=== PATIENT | female | born 1990 | race Caucasian/White ===

== ENCOUNTER 2021-11-25 20:34 | Emergency (ER) | payer MEDICAID, SELFPAY ==
--- NOTE | ~2021-11-25 | XR_ITS ---
EXAMINATION: XR FOOT, RIGHT CLINICAL INFORMATION: Pain. Patient reports injury 6 months prior. COMPARISON: None TECHNIQUE: AP, lateral, and oblique views of the right foot. FINDINGS: There is an incomplete fracture through the proximal diametaphysis of the fifth metatarsal. Fracture extension of the lateral cortex does not appear to extend to the medial cortex. The fracture is nondisplaced. No definite callus. The remaining bones joints and soft tissues unremarkable. XR/XR foot RT min 3V IMPRESSION: Incomplete fracture proximal fifth metatarsal age indeterminant
[2021-11-25 21:05] VITALS: BP 130/93; PULSE 100; RESP 18; TEMP 36.6; O2SAT 97; BMI 36.0
--- NOTE | 2021-11-25 22:27 | PC.NURSE ---
Pt called, not found in [facility] @ this time.
--- NOTE | 2021-11-25 23:34 | ED_ITS ---
HPI - Extremity Problem General Chief complaint: Extremity Problem Stated complaint: right foot injury; fracture Time Seen by Provider: 11/25/21 23:32 Source: patient Mode of arrival: ambulatory Limitations: no limitations History of Present Illness HPI Narrative: This is a 31-year-old female presenting to the emergency department with complaints of right-sided foot pain/ankle pain. Patient tells me that in June she fell down some stairs and rolled her ankle since then she has been having ankle pain, she tells me she was having pain around the ankle and around the 5th toe. She tells me she never got evaluated for this. She tells me that earlier today she slipped in the bathtub, rolling her ankle again experiencing pain in similar spot. Immediately after rolling her ankle she started experiencing pain to the lateral aspect of the right foot, she tells me it is extremely uncomfortable, worse with weight-bearing and better at rest. Patient tells me she is ambulating with a limp. In tells me she is having intermittent tingling around the 4th and 5th toes. She tells me when she slipped she did not hit her head or lose consciousness. Patient not on blood thinners and denying any other complaints at this time. MD Complaint: extremity pain Onset (ago): day(s) (1) Pain Consistency: constant Location: right Quality: aching and constant Radiation: none Relieving factors: immobilization Exacerbating factors: range of motion and weight bearing Associated symptoms: denies other symptoms Related Data Allergies Allergy/AdvReac Type Severity Reaction Status Date / Time No Known Allergies Allergy Unverified 01/06/20 16:20 Review of Systems Review of Systems: Constitutional : No Weight loss, No Fever, No Chills, No Fatigue, No Malaise ENT/Mouth : No sore throat, No Rhinorrhea Eyes: No Eye Pain, No Swelling, No Redness Cardiovascular : No Chest Pain, No SOB, No Dyspnea on Exertion, No Orthopnea, No Edema, No Palpitations Respiratory : No Cough, No Sputum, No Wheezing Gastrointestinal : No Nausea, No Vomiting, No Diarrhea, No Constipation, No abdominal Pain, No Hematochezia, No Melena Genitourinary : No Dysuria, No Urinary Frequency, No Hematuria, Musculoskeletal : + joint pain, No Myalgias, + Joint Swelling Skin : No Skin Lesions, No rash Neuro : No Weakness, No Numbness, No Dizziness, No Headache Psych : No Anxiety/Panic, No Depression All other systems reviewed and are negative Yes all other systems are reviewed and are negative [facility] Past Medical History Attestation statement: The following information was validated with the patient. Source: old records reviewed and nursing notes reviewed Social History Social History Advance Directives: No Advance Directives Information Provided: No Physical Exam Vital Signs: Vital Signs: Last Vital Signs Temp 97.9 F 11/25/21 21:05 Pulse 100 11/25/21 21:05 Resp 18 11/25/21 21:05 BP 130/93 H 11/25/21 21:05 Pulse Ox 97 11/25/21 21:05 O2 Del Method 11/25/21 21:05 BMI result Body Mass Index 36.0 Vital signs stable Appearance: Alert.? Oriented X3.? No acute distress.? Head: Normocephalic, atraumatic, no step-offs or deformities Eyes: Pupils equal, round and reactive to light.? Neck: Normal inspection.? Neck supple.? CVS: Normal heart rate and rhythm.? Pulses normal.? Respiratory: No respiratory distress.? Breath sounds normal.? Abdomen: Soft and nontender.? Skin: Skin warm and dry.? Normal skin color.? Normal skin turgor.? Extremities: No lower extremity edema.? No calf ttp. 5/5 strength to bilateral upper and lower extremities. + pain with palpation over right 5th metatarsal. 2+ dorsalis pedis, posterior tibialis and anterior tibialis pulses equal bilateral. No footdrop bilaterally. No overlying skin changes unable to appreciate erythema or edema. Patient ambulating with a limp however able to ambulate. Back: No midline tenderness, no C-spine tenderness, full range of motion, no CVA tenderness bilaterally Neuro: Oriented X 3.? No motor deficit.? No sensory deficit. CN 2-12 intact Course Reevaluation(s) Reevaluation #1: X-ray of the right foot with an incomplete fracture through the proximal 5th metatarsal. Plan at this time is to place patient in a postop shoe and give her crutches. Advised to follow up with PCP in follow-up with orthopedics as necessary. This time I feel comfortable with discharge home. Educated on worrisome signs and symptoms and when to return. Also educated on ibuprofen and Tylenol use. Comfortable with discharge Time: 00:06 MDM - Extremity (Nontraumatic) MDM Narrative Medical decision making narrative: [id number] 31-year-old female presents with right-sided lateral foot pain status post rolling her ankle in a shower today and slipping and falling. Physical examination significant for no lower extremity edema.? No calf ttp. 5/5 strength to bilateral upper and lower extremities. + pain with palpation over right 5th metatarsal. 2+ dorsalis pedis, posterior tibialis and anterior tibialis pulses equal bilateral. No footdrop bilaterally. No overlying skin changes unable to appreciate erythema or edema. Patient ambulating with a limp however able to ambulate. Plan at this time is to obtain imaging. Medical Records Attestation: I reviewed the patient's medical records. Lab Data Attestation: I reviewed the patient's lab results. Critical Care Time Critical Care Time Critical Care Time: No Discharge Plan Discharge Clinical Impression: Fracture of fifth metatarsal bone, Ankle pain Patient Disposition: Home, Self-Care Instructions: Crutch Instructions (ED), Foot Fracture in Adults (ED) Additional Instructions: Take your medications as prescribed. If you were prescribed antibiotics today, it is important that you take your medication to their entirety, do not skip any doses, do not finish them early. Follow-up with your primary care provider this week. Follow-up with orthopedics in 2 weeks if pain does not improve Return to the emergency department with new or worsening symptoms. Such as fevers, chills, chest pain, shortness of breath, nausea, vomiting, dizziness, headache, vision changes, lethargy In case of emergency call 911 You can take ibuprofen every 6 hours, Tylenol every 4 hours as needed for pain or discomfort FINDINGS: There is an incomplete fracture through the proximal diametaphysis of the fifth metatarsal. Fracture extension of the lateral cortex does not appear to extend to the medial cortex. The fracture is nondisplaced. No definite callus. The remaining bones joints and soft tissues unremarkable. XR/XR foot RT min 3V IMPRESSION: Incomplete fracture proximal fifth metatarsal age indeterminant Referrals: Physician,Nonstaff [Primary Care Provider] - 2 days [facility] [place]Provider Group] - 2 weeks Stand Alone Forms: Work/School Release
[2021-11-26] MEDS: Ketorolac Tromethamine 15 MG/ML VIAL 30 MG IM (00:20)
== END 2021-11-26 00:25 | disposition home or self-care (01) ==
PROVIDERS: Emergency Provider Student in an Organized Health Care Education/Training Program
DX: S92.354A Nondisplaced fracture of fifth metatarsal bone, right foot, initial encounter for closed fracture (principal); X50.1XXA Overexertion from prolonged static or awkward postures, initial encounter; Y93.E1 Activity, personal bathing and showering; Y92.002 Bathroom of unspecified non-institutional (private) residence as the place of occurrence of the external cause; Y99.9 Unspecified external cause status
CPT/HCPCS: 73630; 96372; 99283; 99284; J1885

== ENCOUNTER → 2023-03-31 09:00 | Outpatient (BNV) | payer MEDICAID, SELFPAY | PROVIDERS: PCP Internal Medicine; Visit Provider Internal Medicine Cardiovascular Disease | DX: R00.0 Tachycardia, unspecified (principal) | CPT/HCPCS: 93227 ==

== ENCOUNTER → 2023-03-31 13:26 | Outpatient (REF) | payer MEDICAID, SELFPAY ==
--- NOTE | 2023-03-31 | HM_ITS ---
Conclusion: 1. Patient was monitored for total period of 2 days 2. Baseline was normal sinus rhythm with average heart of 90 beats per minute 3. Frequent sinus tachycardia noted with total burden of 37%, heart rate greater than 100 beats per minute 4. No significant pauses noted 5. Patient did not report any events during the monitoring time MTDD
== END ==
LOC: HO.CARD 13:26
PROVIDERS: PCP Internal Medicine; Visit Provider Internal Medicine
DX: R00.2 Palpitations (principal)
CPT/HCPCS: 93005; 93225

== ENCOUNTER 2023-05-12 16:00 | Outpatient (REF) | payer MEDICAID, SELFPAY ==
[2023-05-12 17:54] LABS: MANUAL DIFF FLAG NO
[2023-05-12 18:12] LABS: Basophils Absolute Auto 0.1 X10*3/uL (0.0-0.2); Basophils Percent Auto 0.6 % (0-2); Eosinophils Absolute Auto 0.2 X10*3/uL (0.0-0.4); Eosinophils Percent Auto 2.5 % (0-4); Hematocrit 41.3 % (37.0-47.0); Hemoglobin 13.5 g/dl (12.0-16.0); Imm Gran Abs Auto 0.03 X10*3/uL (0.00-0.03); Imm Gran Pct Auto 0.4 % (0.0-0.4); Lymphocytes Absolute Auto 2.6 X10*3/uL (1.2-4.9); Lymphocytes Percent Auto 32.3 % (20-40); Mean Corpuscular HGB Conc 32.7 g/dl (31.0-35.0); Mean Corpuscular Hemoglobin 30.6 pg (27.0-33.0); Mean Corpuscular Volume 93.7 fL (80.0-98.0); Monocytes Absolute Auto 0.4 X10*3/uL (0.1-1.2); Monocytes Percent Auto 5.4 % (2-11); Neutrophils Absolute Auto 4.7 x10*3/uL (2.0-8.3); Neutrophils Percent Auto 58.8 % (45-73); Platelet Count 291 X10*3/uL (160-400); Red Blood Count 4.41 X10*6/uL (4.20-5.50); Red Cell Distribution Width 13.6 % (11.0-16.0); White Blood Count 7.9 X10*3/uL (4.8-10.8)
[2023-05-12 18:57] LABS: Alanine Aminotransferase 30 U/L (0-31); Albumin Level 4.2 g/dL (3.5-5.0); Alkaline Phosphatase 61 U/L (39-117); Anion Gap 11 (12-20); Aspartate Amino Transferase 27 U/L (5-31); Bilirubin Direct 0.1 mg/dL (0.0-0.5); Bilirubin Total 0.3 mg/dL (0.0-1.0); Blood Urea Nitrogen 14 mg/dL (9-16); Calcium 8.7 mg/dL (8.4-10.2); Carbon Dioxide 23 mmol/L (22-29); Chloride 106 mmol/L (96-108); Estimated Glomerular Filt Rate > 60; Glucose Random 86 mg/dL (60-115); Potassium 4.1 mmol/L (3.3-5.1); Sodium 136 mmol/L (135-145); Total Protein 6.8 g/dL (6.5-8.0)
[2023-05-12 19:13] LABS: TSH reflex Free T4 1.05 uIU/mL (0.32-4.0)
== END 2023-05-12 16:01 | disposition home or self-care (01) ==
LOC: HO.CHCLDS 16:00
PROVIDERS: Referring Provider Family Medicine; Visit Provider Internal Medicine
DX: F11.20 Opioid dependence, uncomplicated (principal); R00.2 Palpitations
CPT/HCPCS: 36415; 80048; 80076; 84443; 85025

== ENCOUNTER 2023-08-08 14:24 | Outpatient (REF) | payer MEDICAID, SELFPAY ==
--- NOTE | ~2023-08-08 | XR_ITS ---
EXAMINATION: XR FOOT, RIGHT CLINICAL INFORMATION: Right-sided pain COMPARISON: None available. TECHNIQUE: AP, lateral, and oblique views of the right foot. FINDINGS: There is lateral soft tissue swelling as well as slight angulation and cortical irregularity to the proximal aspect of the fifth metatarsal suspicious for fracture. Chronicity uncertain therefore please correlate with clinical history. Joint spaces preserved. XR/XR foot RT min 3V IMPRESSION: Query fracture fifth metatarsal of uncertain age.
--- NOTE | ~2023-08-08 | XR_ITS ---
EXAMINATION: XR ANKLE, RIGHT CLINICAL INFORMATION: Right-sided pain COMPARISON: None available. TECHNIQUE: AP, lateral, and mortise views of the right ankle. FINDINGS: Mortise intact. No fracture, dislocation or destructive process. There does appear to be a subtle fracture involving the proximal aspect of the fifth metatarsal. XR/XR ankle RT min 3V IMPRESSION: Ankle mortise intact. Please see above comments.
== END 2023-08-08 14:25 | disposition home or self-care (01) ==
LOC: HO.HHCX 14:24
PROVIDERS: Visit Provider Internal Medicine
DX: M79.671 Pain in right foot (principal); M25.571 Pain in right ankle and joints of right foot
CPT/HCPCS: 73610; 73630

== ENCOUNTER 2025-02-17 14:19 | Outpatient (REF) | payer MEDICAID, SELFPAY ==
--- OUTSIDE RECORDS SUMMARY | 2025-02-17 13:15 | XMS_ITS | Encounter Summary ---
Author Organization [employer] Address [address] [place] [address] [address] [place] [address] Care Team Providers Care Corrosion Control Engineer Name Role Phone Fany Brown MD Primary Care Provider [phone] Kirby Lyle Unavailable Unavailable Reason for Referral * Consultation (Routine) - Pending Review Specialty Diagnoses / Procedures Referred By Christian pretty Referred To Contact Behavioral Health Diagnoses Acute recurrent frontal sinusitis Procedures Referral to Behavioral Health Fany Brown MD [address] [place] [address] Phone: tel: fax: Referral ID Status Reason Start Date Expiration Date Visits Requested Visits Authorized [id number] Pending Review Specialty Services Required 5 08/18/2026 1 1 * Consultation (Routine) - Pending Review Specialty Diagnoses / Procedures Referred By Christian pretty Referred To Contact Orthopaedic Surgery Diagnoses Acute right ankle pain Pain involving joint of finger of left hand Fany Brown MD [address] [place] [address] Phone: tel: fax: Referral ID Status Reason Start Date Expiration Date Visits Requested Visits Authorized [id number] Pending Review Specialty Services Required 02/17/2026 1 1 Reason for Visit * Reason Comments Annual Exam Encounter Details Date Type Department Care Team (Late st Contact Info) Description 02/17/2025 1:15 PM EDT Office Visit [facility] [address] [place] [address] Fany Brown MD [address] [place] [address] Acute right ankle pain (Primary Dx); Annual physical exam; Pain involving joint of finger of left hand; Easy bruising; Routine screening for STI (sexually transmitted infection); Acute recurrent frontal sinusitis; Frequency of micturition; Stress incontinence; Generalized anxiety disorder; Encounter for immunization Social History Tobacco Use Types Packs/Day Years Used Date Smoking Tobacco: Every Day Cigarettes 0.5 23 Passive Smoke Exposure: Current Smokeless Tobacco: Never Comments:Referred to a [employer] cessation program. Depression Answer Date Recorded Patient Health Questionnaire-9 Score 17 02/17/2025 Patient Health Questionnaire-9 Score 17 02/17/2025 Last PHQ-9: Questionnaire Data Not on file 1 Housing Stability Answer Date Recorded What is your housing situation today? I have ella malhotra 02/09/[address] you li ve. Do you have problems with any of the following? Pests such as bugs, ants, or mice 02/09/2025 Food Insecurity Answer Date Recorded Within the past 12 months, y ou worried that your food would run out before you got money to buy more: Never True 02/09/2025 Within the past 12 months,th e food you bought just didn't last and you didn't have enough money to get more: Never True Transportation Answer Date Recorded In the past 12 months, has l ack of transportation kept you from medical appts, meetings, work or from getting things needed for daily living? No 02/09/2025 Utilities Answer Date Recorded In the past 12 months, has t he electric, gas, oil or water company threatened to shut off services in your home? No 02/09/2025 Depression Answer Date Recorded Patient Health Questionnaire-2 Score 2 02/17/2025 Internet Access Answer Date Recorded Internet Access Q1 Yes 02/09/2025 Internet Access Q2 Not on file 02/09/2025 Comments Unknown Sex and Gender Information Value Date Recorded Sex Assigned at Female 02/18/2022 10:24 AM EDT Legal Sex Female 10:24 AM EDT Gender Identity Female 02/18/2022 10:24 AM EDT Sexual Orientation Straight 01/30/2025 7: 57 PM EDT documented as of this encounter Last Filed Vital Signs Vital Sign Reading Time Taken Comments Blood Pressure 133/82 02/17/2025 1:41 PM EDT Pulse 74 02/17/2025 1:41 PM EDT Temperature 37.1 C (98.8 F) 02/17/2025 1:41 PM EDT Respiratory Rate 20 02/17/2025 1:41 PM EDT Oxygen Saturation - - Inhaled Oxygen Concentration - - Weight 78.9 kg (174 lb) 02/17/2025 1:41 PM EDT Height 162.6 cm (5' 4 ) 02/17/2025 1:41 PM EDT Body Mass Index 29.87 02/17/2025 1:41 PM EDT documented in this encounter Functional Status * Over the past 2 weeks, how often have you been bothered by any of the following problems? Question Answer Date of Assessment Author Patient Health Questionnaire-2 Score 2 01/21 1:46 PM EDT Eric Dimas MA * Little interest or pleasure in doing things Answer Date of Assessment Author Several days 02/17/2025 1:46 PM EDT Sona Dimas MA * Feeling down, depressed, or hopeless Answer Date of Assessment Author Several days 02/17/2025 1:46 PM EDT Sona Dimas MA * Trouble falling or staying asleep, or sleeping too much Answer Date of Assessment Author Nearly every day 02/17/2025 1:46 PM EDT Koko Dimas MA * Feeling tired or having little energy Answer Date of Assessment Author Nearly every day 02/17/2025 1:46 PM EDT Koko Dimas MA * Poor appetite or overeating Answer Date of Assessment Author More than half the days 02/17/2025 1:46 PM EDT Eric Dove MA * Feeling bad about yourself - or that you are a failure or have let yourself or your family down Answer Date of Assessment Author Several days 02/17/2025 1:46 PM EDT Sona Dimas MA * Trouble concentrating on things, such as reading the newspaper or watching television Answer Date of Assessment Author Nearly every day 02/17/2025 1:46 PM Koko Monroe MA * Moving or speaking so slowly that other people could have noticed? Or the opposite - being so fidgety or restless that you have been moving around a lot more than usual. Answer Date of Assessment Author Nearly every day 02/17/2025 1:46 PM EDT Koko Dimas MA * Thoughts that you would be better off or hurting yourself in some way Answer Date of Assessment Author Not at all 02/17/2025 1:46 PM EDSona Rivero MA * Patient Health Questionnaire-9 Score Answer Date of Assessment Author 17 02/17/2025 1:46 PM Sona Monroe MA * How difficult have these problems made it for you to do your work, take care of things at home, or get along with other people? Answer Date of Assessment Author Very difficult 02/17/2025 1:46 PM Sona Monroe MA documented as of this encounter Progress Notes * Fany Brown MD - 02/17/2025 1:15 PM EDT SUBJECTIVE Maribell Langford is a 35 y.o. female who presents for Annual Exam. Maribell Langford, 35-year-old female - History of right ankle injury with fracture of the fifth metatarsal; MRI showed ligament tear anddeep bone bruising; surgical intervention recommended approximately 1 year ago, deferred due to caregiving responsibilities - Persistent right ankle symptoms, unable to tolerate further delay in management - Numbness and deformity of one finger; prior X-ray showed no fracture; persistent numbness and visible deviation - History of sciatica radiating to toe; recurrent pain in a specific spot, previously evaluated by nurse due to localized heat and concern for possible emergency - easy bruising noted, with bruises appearing without trauma, including recent large bruise of the thighs bilaterally - Intermittent pain under left rib in the back for approximately 1 year; pain worsened by movement (twisting, bending), tender to touch, described as different from nerve, muscle, or bone pain - Urinary frequency and urgency; occasional stress incontinence with laughter; denies dysuria - Chronic bowel issues with alternating constipation and diarrhea; recent episode of diarrhea aftereating salad and ice cream; history of difficulty maintaining regular bowel movements - Anxiety reported as primary mental health concern; history of depression, currently not problematic - Recent weight loss noted - Sinus symptoms for 2 weeks, including frontal headache and frequent blowing of green mucus; denies allergies Problem List[1] Allergies[2] Medications Ordered Prior to Encounter[3] Review of Systems Constitutional: Negative for appetite change, chills and diaphoresis. Respiratory: Negative for cough, choking and chest tightness. Cardiovascular: Negative for leg swelling. Gastrointestinal: Negative for abdominal pain, anal bleeding and blood in stool. Endocrine: Negative for heat intolerance and polydipsia. Genitourinary: Negative for vaginal bleeding. Skin: Easy bruising Neurological: Negative for light-headedness, numbness and headaches. Psychiatric/Behavioral: Negative for behavioral problems, confusion, decreased concentration and dysphoric mood. OBJECTIVE Vitals: 02/17/25 1341 BP: 133/82 BP Location: Left arm Patient Position: Sitting BP Cuff Size: Adult Pulse: 74 Resp: 20 Temp: 98.8 ??F (37.1 ??C) TempSrc: Oral Weight: 174 lb (78.9 kg) Height: 5' 4 (1.626 m) Physical Exam Constitutional: General: She is not in acute distress. Appearance: Normal appearance. She is not ill-appearing, toxic-appearing or diaphoretic. HENT: Nose: Left Nostril: No epistaxis or septal hematoma. Right Turbinates: Swollen. Left Turbinates: Swollen. Right Sinus: Maxillary sinus tenderness and frontal sinus tenderness present. Left Sinus: Maxillary sinus tenderness and frontal sinus tenderness present. Cardiovascular: Rate and Rhythm: Normal rate. Pulmonary: Effort: Pulmonary effort is normal. Abdominal: Palpations: Abdomen is soft. Musculoskeletal: Comments: Tenderness of the left flank. No bruises. Skin: Findings: Bruising present. Comments: Bruises of the thighs b/l Neurological: Mental Status: She is alert. Assessment/Plan Assessment/Plan Diagnoses and all orders for this visit: Acute right ankle pain - Referral to Orthopaedic Surgery; Future Annual physical exam Pain involving joint of finger of left hand - Referral to Orthopaedic Surgery; Future Easy bruising - CBC auto differential; Future - Comprehensive Metabolic Panel; Future - Lipid Panel, Standard; Future - TSH with Reflex to Free T4; Future Routine screening for STI (sexually transmitted infection) - Chlamydia/N. Gonorrhoeae RNA, TMA, Urogenitial - HIV-1/2 Antigen and Antibodies, Fourth Generation, with Reflexes; Future - Hepatitis C Antibody with Reflex to HCV, RNA, Quantitative, Real-Time PCR; Future - RPR (Monitor) with Reflex to Titer; Future - Urinalysis w/reflex microscopic; Future - Trichomonas vaginalis RNA, Qualitative, TMA, Males; Future Acute recurrent frontal sinusitis - amoxicillin-clavulanate (Augmentin) 875-125 MG tablet; Take 1 tablet by mouth 2 times daily for 10 days. - Referral to Behavioral Health; Future Frequency of micturition - Culture, Urine, Routine; Future Stress incontinence Generalized anxiety disorder Encounter for immunization - TDAP VACCINE 7 yrs + Acute right ankle pain: - Right ankle pain due to torn ligament and deep bone bruising, surgical intervention recommended by orthopedic surgeon. - Referral placed to [facility] for evaluation and management, including possible surgery. Pain involving joint of finger of left hand: - Persistent pain and numbness in left finger, no fracture on prior imaging. - Referral placed to [facility] for further evaluation. Easy bruising: - Easy bruising without trauma, concern for underlying coagulopathy. - Ordered coagulation studies, liver and kidney function tests to evaluate etiology. Routine screening for STI (sexually transmitted infection): - Ordered STI screening. Acute recurrent frontal sinusitis: - Acute frontal sinusitis with purulent nasal discharge and headache. - Prescribed antibiotics for sinusitis. Recommended continuation of diclofenac and use of saline nasal spray or sinus rinse. Frequency of micturition: - Urinary frequency with associated urgency, differential includes urinary tract infection and irritable bowel syndrome. - Ordered urinalysis and urine culture. Stress incontinence: - Stress incontinence with urine leakage on laughing. - Will consider medication if urine culture is negative and symptoms persist. - Risks and side effects: Discussed potential side effects of medication for stress incontinence. Generalized anxiety disorder: - Anxiety is the predominant concern, depression not currently problematic. Cymbalta continued as current antidepressant. - Recommended psychiatric follow-up for medication management. [1] Patient Active Problem List Diagnosis Generalized anxiety disorder Congenital celiac disease Uncomplicated opioid dependence (CMS/HCC) (HCC) Moderate episode of recurrent major depressive disorder (CMS/HCC) (HCC) Attention deficit disorder (ADD) in adult Sleep disorder Acute right ankle pain Acute pain of right foot Closed nondisplaced fracture of fifth metatarsal bone of right foot Anxiety about visiting dentist Anxiety Fracture in accidental fall Panic attacks Patella-femoral syndrome Depression [2] No Known Allergies [3] Current Outpatient Medications on File Prior to Visit Medication Sig Dispense Refill acetaminophen (Tylenol 8 Hour) 650 MG ER tablet Take 1 tablet (650 mg) by mouth every 8 (eight) hours if needed for mild pain. Do not crush, chew, or split. 90 tablet 3 atomoxetine (Strattera) 25 MG capsule Take 2 capsules (50 mg) by mouth Once per day. Swallow capsule whole; do not open. If opened accidentally, do not touch eyes; wash hands immediately (product is an eye irritant). 60 capsule 1 bacitracin-polymyxin b (Polysporin) ointment Apply topically 2 times daily. 30 g 0 Buprenorphine HCl-Naloxone HCl (Suboxone) 8-[address] 2 Film under the tongue Once per day. To use with the 2mg-0.5mg dose (total 18mg-4.5mg daily) 56 Film 2 buprenorphine-naloxone (Suboxone) 2-0.5 MG per sublingual film Place 1 Film under the tongue Once per day. To use with the 8mg-2mg dose (total 18mg-4.5mg daily) 28 Film 2 chlorhexidine (Peridex) 0.12 % solution RINSE AND GARGLE 15 ML BY MOUTH OR THROAT FOR UP TO 14 DAYSAS NEEDED FOR WOUND CARE DO NOT SWALLOW 473 mL 0 clonazePAM (KlonoPIN) 1 MG tablet Take 1 tablet (1 mg) by mouth 2 times daily. 60 tablet 0 diclofenac (Cataflam) 50 MG tablet TAKE 1 TABLET(50 MG) BY MOUTH EVERY 8 HOURS 90 tablet 1 diclofenac (Cataflam) 50 MG tablet TAKE 1 TABLET(50 MG) BY MOUTH EVERY 8 HOURS 90 tablet 1 Diclofenac Sodium 1 % gel To apply to the affected area 4 times a day. 100 g 1 docusate sodium (Colace) 100 MG capsule TAKE 1 CAPSULE BY MOUTH AT BEDTIME NEEDED DULoxetine (Cymbalta) [address] capsule Take 1 capsule (30 mg) by mouth 2 times daily. 60 capsule 1 gabapentin (Neurontin) 100 MG capsule TAKE 2 CAPSULES(200 MG) BY MOUTH EVERY 8 HOURS 180 capsule 3 gabapentin (Neurontin) 400 MG capsule Take 1 capsule (400 mg) by mouth 3 times daily. 90 capsule 11 hydrOXYzine pamoate (Vistaril) 25 MG capsule TAKE 1 CAPSULE(25 MG) BY MOUTH EVERY 6 HOURS NEEDEDFOR ANXIETY 90 capsule 3 Levonorgestrel (Liletta, 52 MG,) 20.1 MCG/DAY intrauterine device inserted 10/10/20 lidocaine (Lidoderm) 5 % patch APPLY 1 PATCH TOPICALLY TO THE SKIN EVERY DAY IN THE MORNING. MAY WEAR UP TO 12 HOURS 30 patch 3 lidocaine (Uro-Jet) 2 % gel Insert into the urethra if needed for mild pain. 20 mL 1 Multiple Vitamins-Minerals (Centrum Adults) tablet take 1 tablet by oral route every day with food naloxone (Narcan) 4 mg/0.1 mL nasal spray spray 0.1 milliliter by intranasal route in 1 nostril mayrepeat dose every 2-3 minutes as needed alternating nostrils with each dose Nutritional Supplements (Ensure Original) liquid 2 cans a day 237 mL 11 ondansetron (Zofran) 4 MG tablet TAKE 1 TABLET(4 MG) BY MOUTH EVERY 8 HOURS 30 tablet 3 polyethylene glycol, PEG, 3350 (Glycolax) 17 GM/SCOOP powder STIR 17GM INTO 8 OUNCES OF WATER, OR JUICE, AND DRINK DAILY NEEDED / DIRECTED SUMAtriptan (Imitrex) 50 MG tablet Take 1 tablet (50 mg) by mouth 1 (one) time if needed for migraine for up to 36 doses. May repeat dose once in 2 hours if no relief. Do not exceed 2 doses in 24 hours. 9 tablet 3 tiZANidine (Zanaflex) 4 MG tablet TAKE 2 TABLET(8 MG) BY MOUTH EVERY 12 HOURS NEEDED FOR MUSCLE SPASMS 120 tablet 2 valACYclovir (Valtrex) 500 MG tablet TAKE 1 TABLET(500 MG) BY MOUTH TWICE DAILY 60 tablet 5 [DISCONTINUED] clonazePAM (KlonoPIN) 1 MG tablet TAKE 1 TABLET(1 MG) BY MOUTH IN THE MORNING AND ATBEDTIME NEEDED FOR ANXIETY 60 tablet 0 [DISCONTINUED] DULoxetine (Cymbalta) [address] capsule TAKE 1 CAPSULE(30 MG) BY MOUTH TWICE DAILY 60capsule 1 No current facility-administered medications on file prior to visit. documented in this encounter Miscellaneous Notes * Addendum Note - Eric Wing, MA - 02/17/2025 1:15 PM EDTAddended by: ERIC DIMAS on: 02/17/2025 04:19 PM Modules accepted: Orders documented in this encounter Plan of Treatment Upcoming Encounters Date Type Department Care Team (Late st Contact Info) Description 02/21/2025 3:30 PM EST Office Visit [facility] [address] [place] [address] Braden Hernandez MD [address] [place], [place] [phone] 05/23/2025 9:30 AM EST Office Visit [facility] [address] [place] [address] Braden Hernandez MD [address] [place], [place] [id number] Scheduled Orders Name Type Priority Associated Diagnoses Orde r Schedule CBC auto differential Lab Routine Easy bruising Expected: 02/17/2025 (Approximate), Expires: 02/17/2026 Comprehensive Metabolic Panel Lab Routine Easy bruising Expected: 02/17/2025 (Approximate), Expires: 02/17/2026 Lipid Panel, Standard Lab Routine Easy bruising Expected: 02/17/2025 (Approximate), Expires: 02/17/2026 TSH with Reflex to Free T4 Lab Routine Easy bruising Expected: 02/17/2025 (Approximate), Expires: 02/17/2026 Chlamydia/N. Gonorrhoeae RNA, TMA, Urogenitial Microbiology Routine Routine screening for STI (sexually transmitted infection) Ordered: 02/17/2025 HIV-1/2 Antigen and Antibodies, Fourth Generation, with Reflexes Lab Routine Routine screening for STI (sexually transmitted infection) Expected: 02/17/2025 (Approximate), Expires: 02/17/2026 Hepatitis C Antibody with Reflex to HCV, RNA, Quantitative, Real-Time PCR Lab Routine Routine screening for STI (sexually transmitted infection) Expected: 02/17/2025, Expires: 02/17/2026 RPR (Monitor) with Reflex to Titer Lab Routine Routine screening for STI (sexually transmitted infection) Expected: 02/17/2025, Expires: 02/17/2026 Urinalysis w/reflex microscopic Lab Routine Routine screening for STI (sexually transmitted infection) Expected: 02/17/2025, Expires: 02/17/2026 Trichomonas vaginalis RNA, Qualitative, TMA, Males Lab Routine Routine screening for STI (sexually transmitted infection) Expected: 02/17/2025, Expires: 02/17/2026 Culture, Urine, Routine Microbiology Routine Frequency of micturition Expected: 02/17/2025 (Approximate), Expires: 02/17/2026 Scheduled Referrals Name Type Priority Associated Diagnoses Order Schedule Referral to Orthopaedic Surgery Outpatient Referral Routine Acute right ankle pain Pain involving joint of finger of left hand Expected: 02/17/2025 (Approximate), Expires: 02/17/2026 documented as of this encounter Procedures Procedure Name Priority Date/Time Associated Diagnosis Comments POCT URINALYSIS DIPSTICK Routine 02/17/2025 4:17 PM EDT Frequency of micturition documented in this encounter Results * POCT Urinalysis (02/17/2025 4:17 PM EDT) Color, UA Monica Clarity, UA Clear Glucose, UA Negative Bilirubin, UA Negative Ketones, UA Positive Spec Grav, UA 1.020 Blood, UA Negative Negative, None Detected pH, UA 5.5 Protein, UA Negative Urobilinogen, UA 0.2 Leukocytes, UA Negative Negative, Rare, Trace Nitrite, UA Negative Negative, None Detected Appearance, UA clear QC Media Lot # [id number] Lot# Expiration Date Urine (Urine, Random) 02/17/2025 4:17 PM EDT Fany Brown MD POINT OF CARE TEST ENTER/ED IT ORDERABLES Final Result documented in this encounter Visit Diagnoses Diagnosis Acute right ankle pain- Primary Annual physical exam Routine general medical examination at a health care facility Pain involving joint of finger of left hand Easy bruising Other symptoms involving skin and integumentary tissues Routine screening for STI (sexually transmitted infection) Screening examination for venereal disease Acute recurrent frontal sinusitis Frequency of micturition Urinary frequency Stress incontinence Female stress incontinence Generalized anxiety disorder Encounter for immunization documented in this encounter Additional Health Concerns Assessment Noted Time PHQ-9 Depression Total Score: 17 025 1:46 PM EDT documented as of this encounter Care Teams Corrosion Control Engineer Relationship Specialty Start Date End Date Fany Brown MD [address] [place] [address] PCP - General Internal Medicine 05/18/15 Kirby Lyle FNP [address] [place] [address] Nurse Practitioner Family Medicine 03/25/23 documented as of this encounter
--- OUTSIDE RECORDS SUMMARY | 2025-02-17 17:20 | XMS_ITS | Encounter Summary ---
Author Organization [employer] Address [address] [facility] 7 [place] [address] Care Team Providers Care Canned Food Reconditioning Inspector Name Role Phone Fany Brown MD Primary Care Provider [phone] Kirby Lyle Unavailable Unavailable Reason for Visit * Reason Comments Med Refill Encounter Details Date Type Department Care Team ([facility] st Contact Info) Description 07/17/2023 Refill [facility] [address] [place] [address] Fany Brown MD [address] [place] [address] Muscle spasm Social History Tobacco Use Types Packs/Day Years Used Date Smoking Tobacco: Every Day Cigarettes 0.5 23 Smokeless Tobacco: Never Comments:Referred to a smoki ng cessation program. Depression Answer Date Recorded Patient Health Questionnaire-9 Score 11 06/30/2023 Patient Health Questionnaire-9 Score 11 06/30/2023 Last PHQ-9: Questionnaire Data Not on file 0 06/30/2023 Housing Stability Answer Date Recorded What is your housing situation today? I have ella malhotra 05/01/[address] you li ve. Do you have problems with any of the following? None of the above 05/01/2023 Food Insecurity Answer Date Recorded Within the past 12 months, y ou worried that your food would run out before you got money to buy more: Never True 05/01/2023 Within the past 12 months,th e food you bought just didn't last and you didn't have enough money to get more: Never True 02/2024 Transportation Answer Date Recorded In the past 12 months, has l ack of transportation kept you from medical appts, meetings, work or from getting things needed for daily living? No 05/01/2023 Utilities Answer Date Recorded In the past 12 months, has t he electric, gas, oil or water company threatened to shut off services in your home? No 05/01/2023 Depression Answer Date Recorded Patient Health Questionnaire-2 Score 3 06/30/2023 Comments Unknown Sex and Gender Information Value Date Recorded Sex Assigned at Female 02/18/2022 10:24 AM EDT Legal Sex Female 10:24 AM EDT Gender Identity Female 02/18/2022 10:24 AM EDT Sexual Orientation Straight 01/30/2025 7: 57 PM EDT documented as of this encounter Plan of Treatment Upcoming Encounters Date Type Department Care Team (Late st Contact Info) Description 02/21/2025 3:30 PM EST Office Visit [facility] [address] [place] [address] Braden Hernandez MD [address] [place] [address] 05/23/2025 9:30 AM EST Office Visit [facility] [address] [place] [address] Braden Hernandez MD [address] [place] [id number] documented as of this encounter Visit Diagnoses Diagnosis Muscle spasm Spasm of muscle documented in this encounter Additional Health Concerns Assessment Noted Time PHQ-9 Depression Total Score: 024 3:28 PM EDT documented as of this encounter Care Teams Canned Food Reconditioning Inspector Relationship Specialty Start Date End Date Fany Brown MD [address] [place] [address] PCP - General Internal Medicine 05/18/15 Kirby Lyle FNP [address] [place] [address] Nurse Practitioner Family Medicine 03/25/23 documented as of this encounter
--- OUTSIDE RECORDS SUMMARY | 2025-02-17 17:20 | XMS_ITS | Encounter Summary ---
Author Organization [employer] Address [address] [place] [address] [address] [address] Care Team Providers Care Info Analyst Name Role Phone Fany Brown MD Primary Care Provider [phone] Kirby Lyle Unavailable Unavailable Reason for Visit * Reason Comments Med Refill Encounter Details Date Type Department Care Team (Late Contact Info) Description 05/27/2022 Refill [facility] MED & PEDS [address] [place] [address] Fany Brown MD [address] [place] [address] Muscle spasm Social History Tobacco Use Types Packs/Day Years Used Date Smoking Tobacco: Never Smokeless Tobacco: Never Comments Unknown Sex and Gender Information Value Date Recorded Sex Assigned at Female 02/18/2022 10:24 AM EDT Legal Sex Female 10:24 AM EDT Gender Identity Female 02/18/2022 10:24 AM EDT Sexual Orientation Straight 01/30/2025 7: 57 PM EDT COVID-19 Exposure Response Date Recorded In the last 10 days, have yo u been in contact with someone who was confirmed or suspected to have Coronavirus/COVID-19? No / Unsure 05/11/2022 3:10 PM EST documented as of this encounter Plan of Treatment Upcoming Encounters Date Type Department Care Team (Late Contact Info) Description 02/21/2025 3:30 PM EST Office Visit [facility] MED & PEDS [address] [place] [address] Braden Hernandez MD [address] [place], [place] [phone] 05/23/2025 9:30 AM EST Office Visit [facility] CHC MED & PEDS [address] [place], [place] [phone] Braden Hernandez MD [address] [place], [place] [phone] documented as of this encounter Visit Diagnoses Diagnosis Muscle spasm Spasm of muscle documented in this encounter Care Teams Info Analyst Relationship Specialty Start Date End Date Fany Brown MD [address] [place] [address] PCP - General Internal Medicine 05/18/15 Kirby Lyle FNP [address] [place] [address] Nurse Practitioner Family Medicine 03/25/23 documented as of this encounter
--- OUTSIDE RECORDS SUMMARY | 2025-02-17 17:20 | XMS_ITS | Encounter Summary ---
Author Organization [employer] Address [address] [place] [address] [place] [address] Care Team Providers Care Communications Supervisor Name Role Phone Fany Brown MD Primary Care Provider [phone] Kirby Lyle Unavailable Unavailable Reason for Visit * Reason Comments Med Refill Encounter Details Date Type Department Care Team ([facility] Contact Info) Description 10/03/2022 Refill [facility] MED & PEDS [address] [place] [address] Fany Borwn MD [address] [place] [address] Social History Tobacco Use Types Packs/Day Years Used Date Smoking Tobacco: Never Smokeless Tobacco: Never PHQ-2 Answer Date Recorded Patient Health Questionnaire-2 Score 5 07/23/2022 Comments Unknown Sex and Gender Information Value [...] suspected to have Coronavirus/COVID-19? No / Unsure 09/30/2022 3:34 PM EDT documented as of this encounter Plan of Treatment Upcoming Encounters Date Type Department Care Team ([facility] Contact Info) Description 02/21/2025 3:30 PM EST Office Visit [facility] MED & PEDS [address] [place] [address] Braden Hernandez MD [address] [place] [address] 05/23/2025 9:30 AM EST Office Visit [facility] CHC MED & PEDS [address] [place] [address] Braden Hernandez MD [address] [place], [place] [phone] documented as of this encounter Visit Diagnoses Not on filedocumented in this encounter Additional Health Concerns Assessment Noted Time PHQ-9 Depression Total Score: 15 023 2:14 PM EDT documented as of this encounter Care Teams Communications Supervisor Relationship Specialty Start Date End Date Fany Brown MD [address] [place] [address] PCP - General Internal Medicine 05/18/15 Kirby Lyle FNP [address] [place] [address] Nurse Practitioner Family Medicine 03/25/23 documented as of this encounter
--- OUTSIDE RECORDS SUMMARY | 2025-02-17 17:20 | XMS_ITS | Encounter Summary ---
Author Organization [email or web address] Address [address] [place] [address] 7 [place] [address] Care Team Providers Care Core Rescuer Name Role Phone Fany Brown MD Primary Care Provider [phone] Kirby Lyle Unavailable Unavailable Reason for Referral * Consultation (Routine) - Closed Specialty Diagnoses / Procedures Referred By Christian pretty Referred To Contact Orthopaedic Surgery Diagnoses Medial epicondylitis of right elbow Fany Brown MD [address] [place] [address] Phone: tel: fax: [facility] [address] [place] [address] [place] [address] Phone: tel: fax: Referral ID Status Reason Start Date Expiration Date V isits Requested Visits Authorized [id number] Closed Specialty Services Required 06/02/2024 06/02/2025 1 1 Encounter Details Date Type Department Care Team (Late st Contact Info) Description 06/02/2024 Orders Only [facility] CHC MED & PEDS [address] [place] [address] Fany Brown MD [address] [place] [address] Medial epicondylitis of right elbow (Primary Dx); Attention deficit disorder (ADD) in adult Social History Tobacco Use Types Packs/Day Years Used Date Smoking Tobacco: Every Day Cigarettes 0.5 23 Passive Smoke Exposure: Current Smokeless Tobacco: Never Comments:Referred to a [facility] cessation program. Depression Answer Date Recorded Patient [...] 02/21/2025 3:30 PM EST Office Visit [facility] MED & PEDS [address] [place] [address] Braden Hernandez MD [address] [place] [address] 05/23/2025 9:30 AM EST Office Visit [facility] MED & PEDS [address] [place] [address] Braden Hernandez MD [address] [place] [address] Scheduled Referrals Name Type Priority Associated Diagnoses Orde r Schedule Referral to Orthopaedic Surgery Outpatient Referral Routine Medial epicondylitis of right elbow Expected: 06/02/2024 (Approximate), Expires: 06/02/2025 documented as of this encounter Visit Diagnoses Diagnosis Medial epicondylitis of right elbow- Primary Attention deficit disorder (ADD) in adult documented in this encounter Additional Health Concerns Assessment Noted Time PHQ-9 Depression Total Score: 11 024 3:28 PM EDT documented as of this encounter Care Teams Core Rescuer Relationship Specialty Start Date End Date Fany Brown MD [address] [place] [address] PCP - General Internal Medicine 05/18/15 Kirby Lyle FNP [address] [place] [address] Nurse Practitioner Family Medicine 03/25/23 documented as of this encounter
--- OUTSIDE RECORDS SUMMARY | 2025-02-17 17:20 | XMS_ITS | Encounter Summary ---
Author Organization [employer] Address [address] [facility] 7t [place] [address] Care Team Providers Care Consultant Education Name Role Phone Fany Brown MD Primary Care Provider [phone] Kirby Lyle Unavailable Unavailable Encounter Details Date Type Department Care Team (Latest Contact Info) Description 02/17/2025 Travel Social History Tobacco Use Types Packs/Day Years Used Date Smoking Tobacco: Every Day Cigarettes 0.5 23 Passive Smoke Exposure: Current Smokeless Tobacco: Never Comments:Referred to a [employer] cessation program. Depression Answer Date Recorded Patient [...] PM EDT documented as of this encounter Functional Status * Over the past 2 weeks, how often have you been bothered by any of the following problems? Question Answer Date of Assessment Author Patient Health Questionnaire-2 Score 2 01/21 1:46 PM CHARLIET Kenzie Dimas [place] * Little interest or pleasure in doing things Answer Date of Assessment Author Several days 02/17/2025 1:46 PM CHARLIET Sona Dimas MA * Feeling down, depressed, or hopeless Answer Date of Assessment Author Several days 02/17/2025 1:46 PM CHARLIET Sona Dimas MA * Trouble falling or staying asleep, or sleeping too much Answer Date of Assessment Author Nearly every day 02/17/2025 1:46 PM Koko Monroe MA * Feeling tired or having little energy Answer Date of Assessment Author Nearly every day 02/17/2025 1:46 PM Koko Monroe [place] * Poor appetite or overeating Answer Date of Assessment Author More than half the days 02/17/2025 1:46 PM EDT Kenzie Dove MA * Feeling bad about yourself - or that you are a failure or have let yourself or your family down Answer Date of Assessment Author Several days 02/17/2025 1:46 PM Sona Monroe MA * Trouble concentrating on things, such [...] Author Not at all 02/17/2025 1:46 PM EDT Sona Dimas MA * Patient Health Questionnaire-9 Score Answer Date of Assessment Author 17 02/17/2025 1:46 PM EDT Sona Dimas MA * How difficult have these problems made it for you to do your work, take care of things at home, or get along with other people? Answer Date of Assessment Author Very difficult 02/17/2025 1:46 PM EDT Sona Dimas MA documented as of this encounter Plan of Treatment Upcoming Encounters Date Type Department Care Team (Late st Contact Info) Description 02/21/2025 3:30 PM EST Office Visit [facility] MED & PEDS [address] [place] [address] Braden Hernandez MD [address] [place] [address] 05/23/2025 9:30 AM EST Office Visit [facility] MED & PEDS [address] [place] [address] Braden Hernandez MD [address] [place] [address] documented as of this encounter Visit Diagnoses Not on filedocumented in this encounter Additional Health Concerns Assessment Noted Time PHQ-9 Depression Total Score: 17 02/17/ 025 1:46 PM EDT documented as of this encounter Care Teams Consultant Education Relationship Specialty Start Date End Date Fany Brown MD [address] [place] [address] PCP - General Internal Medicine 05/18/15 Kirby Lyle FNP [address] [place] [address] Nurse Practitioner Family Medicine 03/25/23 documented as of this encounter
--- OUTSIDE RECORDS SUMMARY | 2025-02-17 17:20 | XMS_ITS | Encounter Summary ---
Author Organization [employer] Address [address] [facility] 7 [place] [address] Care Team Providers Care Front End Software Engineer Name Role Phone Fany Brown MD Primary Care Provider [phone] Kirby Lyle Unavailable Unavailable Encounter Details Date Type Department Care Team ([facility] st Contact Info) Description 02/14/2025 Telephone [facility] CHC MED & PEDS [address] [place], [place] [phone] Fany Borwn MD [address] [place] [address] Social History Tobacco Use Types Packs/Day Years Used Date Smoking Tobacco: Every Day Cigarettes 0.5 23 Passive Smoke Exposure: Current Smokeless Tobacco: Never Comments:Referred to a [facility] cessation program. Depression Answer Date Recorded Patient [...] Recorded Patient Health Questionnaire-2 Score 3 06/30/2023 Internet Access Answer Date Recorded Internet Access Q1 Yes 02/09/2025 Internet Access Q2 Not on file 02/09/2025 Comments Unknown Sex and Gender Information Value Date Recorded Sex Assigned at Female 02/18/2022 10:24 AM EDT Legal Sex Female 10:24 AM EDT Gender Identity Female 02/18/2022 10:24 AM EDT Sexual Orientation Straight 01/30/2025 7: 57 PM EDT documented as of this encounter Miscellaneous Notes * Telephone Encounter - Manuela San RN - 02/14/2025 3:58 PM EDT Pt sent mychart requesting refill to clonazepam and duloxetine. Meds queued for PCP approval. documented in this encounter Plan of Treatment Upcoming Encounters Date Type Department Care Team (Late st Contact Info) Description 02/21/2025 3:30 PM EST Office Visit [facility] MED & PEDS [address] [place] [address] Braden Hernandez MD [address] [place] [address] 05/23/2025 9:30 AM EST Office Visit [facility] MED & PEDS 505 [place] [address] Braden Hernandez MD [address] [place] [phone] documented as of this encounter Visit Diagnoses Diagnosis Moderate episode of recurrent major depressive disorder (CMS/HCC) (HCC) Anxiety disorder, unspecified type documented in this encounter Additional Health Concerns Assessment Noted Time PHQ-9 Depression Total Score: 11 024 3:28 PM EDT documented as of this encounter Care Teams Front End Software Engineer Relationship Specialty Start Date End Date Fany Brown MD [address] [place] [address] PCP - General Internal Medicine 05/18/15 Kirby Lyle FNP [address] [place] [address] Nurse Practitioner Family Medicine 03/25/23 documented as of this encounter
--- OUTSIDE RECORDS SUMMARY | 2025-02-17 17:20 | XMS_ITS | Encounter Summary ---
Author Organization [employer] Address [address] [facility] 7 [place] [address] Care Team Providers Care Street Light Lamp Cleaner Name Role Phone Fany Brown MD Primary Care Provider [phone] Kirby Lyle Unavailable Unavailable Encounter Details Date Type Department Care Team ([facility] st Contact Info) Description 01/18/2025 Results Follow-Up [facility] CHC MED & PEDS [address] [place], [place] [phone] Tran Sanchez MD [address] [place] [address] XR Hand 3+ Views Left Social History Tobacco Use Types Packs/Day Years Used Date Smoking Tobacco: Every Day Cigarettes 0.5 23 Passive Smoke Exposure: Current Smokeless Tobacco: Never Comments:[facility]. Depression Answer Date Recorded Patient [...] 3:30 PM EST Office Visit [facility] MED & PEDS [address] [place] [address] Braden Hernandez MD [address] [place] [address] 05/23/2025 9:30 AM EST Office Visit [facility] MED & PEDS [address] [place] [address] Braden Hernandez MD [address] [place] [address] documented as of this encounter Visit Diagnoses Not on filedocumented in this encounter Additional Health Concerns Assessment Noted Time PHQ-9 Depression Total Score: 024 3:28 PM EDT documented as of this encounter Care Teams Street Light Lamp Cleaner Relationship Specialty Start Date End Date Fany Brown MD [address] [place] [address] PCP - General Internal Medicine 05/18/15 Kirby Lyle FNP [address] [place] [address] Nurse Practitioner Family Medicine 03/25/23 documented as of this encounter
--- OUTSIDE RECORDS SUMMARY | 2025-02-17 17:20 | XMS_ITS | Encounter Summary ---
Author Organization [employer] Address [address] [facility] 7 [place] [address] Care Team Providers Care Vp Hr Diversity Name Role Phone Fany Brown MD Primary Care Provider [phone] Kirby Lyle Unavailable Unavailable Reason for Visit * Reason Onset Date Comments chart prep 02/16/2025 Encounter Details Date Type Department Care Team ([facility] Contact Info) Description 02/16/2025 Telephone [facility] CHC MED & PEDS [address] [place], [place] [phone] Fany Brown MD 505 [place] [address] chart prep Social History Tobacco Use Types Packs/Day Years Used Date Smoking Tobacco: Every Day Cigarettes 0.5 23 Passive Smoke Exposure: Current Smokeless Tobacco: Never Comments:Referred to a [facility] cessation program. Depression Answer Date Recorded Patient Health Questionnaire-9 Score 17 02/17/2025 Patient Health Questionnaire-9 Score 17 02/17/2025 Last PHQ-9: Questionnaire Data Not on file 1 Housing Stability Answer Date Recorded What is your housing situation today? I have ellaalem malhotra 02/09/[address] you [...] encounter Miscellaneous Notes * Telephone Encounter - Tawana Gomez MA - 02/16/2025 11:46 AM EDT Chart Prep Labs: done Images: done Referrals: complete Vaccines due: Covid, Flu, PCV20, and Tdap Screenings: pap smear Overdue care gaps: SBIRT and PHQ-9 documented in this encounter Plan of Treatment Upcoming Encounters Date Type Department Care Team ([facility] st Contact Info) Description 02/21/2025 3:30 PM EST Office Visit [facility] MED & PEDS [address] [place] [address] Braden Hernandez MD [address] [place] [address] 05/23/2025 9:30 AM EST Office Visit [facility] MED & PEDS [address] [place] [address] Braden Hernandez MD [address] [place] [address] documented as of this encounter Visit Diagnoses Not on filedocumented in this encounter Additional Health Concerns Assessment Noted Time PHQ-9 Depression Total Score: 11 024 3:28 PM EDT documented as of this encounter Care Teams Vp Hr Diversity Relationship Specialty Start Date End Date Fany Brown MD 505 [facility] [place] [place] [address] PCP - General Internal Medicine 05/18/15 Kirby Lyle FNP 505 [place] [address] Nurse Practitioner Family Medicine 03/25/23 documented as of this encounter
--- OUTSIDE RECORDS SUMMARY | 2025-02-17 17:20 | XMS_ITS | Encounter Summary ---
Author Organization [employer] Address [address] [facility] 7 [place] [address] Care Team Providers Care Transition Social Worker Name Role Phone Fany Brown MD Primary Care Provider [phone] [phone] Kirby Lyle Unavailable Unavailable Reason for Visit * Reason Comments Med Refill Encounter Details Date Type Department Care Team ([facility] st Contact Info) Description 05/09/2023 Refill [facility] CHC MED & PEDS [address] [place] [address] Fany Brown MD [address] [place] [address] Muscle spasm; Chronic midline thoracic back pain; Herpes Social History Tobacco Use Types Packs/Day Years Used Date Smoking Tobacco: Every Day Cigarettes 0.5 23 Smokeless Tobacco: Never Comments:Referred to a [employer] cessation program. Depression Answer Date Recorded Patient Health Questionnaire-9 Score 16 04/01/2023 Patient Health Questionnaire-9 Score 16 04/01/2023 Last PHQ-9: Questionnaire Data Not on file 1 06/02/2022 Housing Stability Answer Date Recorded What is [...] Answer Date Recorded Patient Health Questionnaire-2 Score 4 04/01/2023 Comments Unknown Sex and Gender Information Value [...] 02/21/2025 3:30 PM EST Office Visit [facility] MED & PEDS 505 [place] [address] Braden Hernandez MD [address] [place] [address] 05/23/2025 9:30 AM EST Office Visit [facility] MED & PEDS 505 [place] [address] Braden Hernandez MD [address] [place] [address] documented as of this encounter Visit Diagnoses Diagnosis Muscle spasm Spasm of muscle Chronic midline thoracic back pain Herpes Herpes simplex without mention of complication documented in this encounter Additional Health Concerns Assessment Noted Time PHQ-9 Depression Total Score: 16 023 10:43 AM EST documented as of this encounter Care Teams Transition Social Worker Relationship Specialty Start Date End Date Fany Brown MD [address] [place] [address] PCP - General Internal Medicine 05/18/15 Kirby Lyle FNP [address] [place] [address] Nurse Practitioner Family Medicine 03/25/23 documented as of this encounter
--- OUTSIDE RECORDS SUMMARY | 2025-02-17 17:20 | XMS_ITS | Encounter Summary ---
Author Organization [employer] Address [address] [facility] 7t [place] [address] Care Team Providers Care Veneer Grader Name Role Phone Fany Brown MD Primary Care Provider [phone] Kirby Lyle Unavailable Unavailable Reason for Visit * Reason Onset Date Comments Med Refill 12/07/2024 Encounter Details Date Type Department Care Team (Late st Contact Info) Description 12/07/2024 Refill [facility] CHC MED & PEDS [address] [place] [address] Braden Hernandez MD [address] [place] [address] Opioid type dependence, continuous (CMS/HCC) Social History Tobacco Use Types Packs/Day Years Used Date Smoking Tobacco: Every Day Cigarettes 0.5 23 Passive Smoke Exposure: Current Smokeless Tobacco: Never Comments:Referred to a [facility] cessation program. Depression Answer Date Recorded Patient Health Questionnaire-9 Score 11 06/30/2023 Patient Health Questionnaire-9 Score 11 06/30/2023 Last PHQ-9: Questionnaire Data Not on file 0 06/30/2023 Housing Stability Answer Date Recorded What is your housing situation today? I have ella sing 05/01/[address] you li [...] 3:30 PM EST Office Visit [facility] MED & PEDS [address] [place] [address] Braden Hernandez MD [address] [place] [address] 05/23/2025 9:30 AM EST Office Visit [facility] MED & PEDS [address] [place] [address] Braden Hernandez MD [address] [place] [address] documented as of this encounter Visit Diagnoses Diagnosis Opioid type dependence, continuous (CMS/HCC) ([facility]) Opioid type dependence, continuous documented in this encounter Additional Health Concerns Assessment Noted Time PHQ-9 Depression Total Score: 11 024 3:28 PM EDT documented as of this encounter Care Teams Veneer Grader Relationship Specialty Start Date End Date Fany Brown MD [address] [place] [address] PCP - General Internal Medicine 05/18/15 Kirby Lyle FNP [address] [place] [address] Nurse Practitioner Family Medicine 03/25/23 documented as of this encounter
--- OUTSIDE RECORDS SUMMARY | 2025-02-17 17:20 | XMS_ITS | Encounter Summary ---
Author Organization [employer] Address [address] [facility] 7 [place] [address] Care Team Providers Care Space Control Agent Name Role Phone Fany Brown MD Primary Care Provider [phone] Kirby Lyle Unavailable Unavailable Reason for Visit * Reason Onset Date Comments Med Refill 02/14/2025 Encounter Details Date Type Department Care Team ([facility] st Contact Info) Description 02/14/2025 Refill [facility] CHC MED & PEDS [address] [place], [place] [phone] Fany Brown MD 505 [place] [address] Moderate episode of recurrent major depressive disorder (CMS/HCC) (HCC); Anxiety disorder, unspecified type Social History Tobacco Use Types Packs/Day Years Used Date Smoking Tobacco: Every Day Cigarettes 0.5 23 Passive Smoke Exposure: Current Smokeless Tobacco: Never Comments:Referred to a [facility] cessation program. Depression Answer Date Recorded Patient [...] Questionnaire-2 Score 2 01/21 1:46 PM EDT Kenzie Dimas MA * Little interest or [...] Assessment Author Several days 02/17/2025 1:46 PM EDSona Rivero MA * Trouble concentrating on things, such [...] 02/17/2025 1:46 PM Koko Monroe MA * Thoughts that you would be better off or hurting yourself in some way Answer Date of Assessment Author Not at all 02/17/2025 1:46 PM Sona Monroe MA * Patient Health Questionnaire-9 Score Answer Date of Assessment Author 17 02/17/2025 1:46 PM Sona Monroe MA * How difficult have these problems made it for you to do your work, take care of things at home, or get along with other people? Answer Date of Assessment Author Very difficult 02/17/2025 1:46 PM Sona Monroe MA documented as of this encounter Plan of Treatment Upcoming Encounters Date Type Department Care Team (Late st Contact Info) Description 02/21/2025 3:30 PM EST Office Visit [facility] MED & PEDS [address] [place] [address] Braden Hernandez MD [address] [place] [address] 05/23/2025 9:30 AM EST Office Visit [facility] MED & PEDS [address] [place] [address] Braden Hernandez MD [address] [place] [address] documented as of this encounter Visit Diagnoses Diagnosis Moderate episode of recurrent major depressive disorder (CMS/HCC) (HCC) Anxiety disorder, unspecified type documented in this encounter Additional Health Concerns Assessment Noted Time PHQ-9 Depression Total Score: 11 024 3:28 PM EDT documented as of this encounter Care Teams Space Control Agent Relationship Specialty Start Date End Date Fany Brown MD [address] [place] [address] PCP - General Internal Medicine 05/18/15 Kirby Lyle FNP [address] [place] [address] Nurse Practitioner Family Medicine 03/25/23 documented as of this encounter
--- OUTSIDE RECORDS SUMMARY | 2025-02-17 17:20 | XMS_ITS | Encounter Summary ---
Author Organization [employer] Address [address] [facility] 7 [place] [address] Care Team Providers Care Director Financial Services Name Role Phone Fany Brown MD Primary Care Provider [phone] Kirby Lyle Unavailable Unavailable Reason for Visit * Reason Comments Med Refill Encounter Details Date Type Department Care Team ([facility] st Contact Info) Description 05/27/2024 Refill [facility] MEDICINE [address] [place] [address] Fany Brown MD [address] [place] [address] Social History Tobacco Use Types Packs/Day Years Used Date Smoking Tobacco: Every Day Cigarettes 0.5 23 Passive Smoke Exposure: Current Smokeless Tobacco: Never Comments:Referred to a smoki [...] encounter Miscellaneous Notes * Telephone Encounter - Chanelle Chance - 06/01/2024 3:48 [address] EST Good afternoon [address]. Brown. TC to [facility] to schedule patient and office states unable to schedule with DX provided, please advise. Thank you. documented in this encounter Plan of Treatment Upcoming Encounters Date Type Department Care Team (Late st Contact Info) Description 02/21/2025 3:30 PM EST Office Visit [facility] MED & PEDS [address] [place] [address] Braden Hernandez MD [address] [place] [phone] 05/23/2025 9:30 AM EST Office Visit [facility] MED & PEDS [address] [place] [address] Braden Hernandez MD [address] [place] [address] documented as of this encounter Visit Diagnoses Not on filedocumented in this encounter Additional Health Concerns Assessment Noted Time PHQ-9 Depression Total Score: 11 024 3:28 PM EDT documented as of this encounter Care Teams Director Financial Services Relationship Specialty Start Date End Date Fany Brown MD 505 [place] [address] PCP - General Internal Medicine 05/18/15 Kirby Lyle FNP [address] [place] [address] Nurse Practitioner Family Medicine 03/25/23 documented as of this encounter
--- OUTSIDE RECORDS SUMMARY | 2025-02-17 17:20 | XMS_ITS | Encounter Summary ---
Author Organization [employer] Address [address] [place] [address] 7t [place] [address] Care Team Providers Care Machine I Trimmer Name Role Phone Fany Brown MD Primary Care Provider [phone] Kirby Lyle Unavailable Unavailable Reason for Referral * Consultation (Urgent) - Closed Specialty Diagnoses / Procedures Referred By Contac t Referred To Contact Podiatry Diagnoses Closed nondisplaced fracture of fifth metatarsal bone of right foot, initial encounter Elle Calixto MD [address] [place] [address] Phone: tel: fax: Issac Correa DPM Phone: tel: fax: Referral ID Status Reason Start Date Expiration Date V isits Requested Visits Authorized [id number] Closed Specialty Services Required 08/21/2023 08/20/2024 6 6 Encounter Details Date Type Department Care Team (Late st Contact Info) Description 08/21/2023 Orders Only [facility] MEDICINE [address] [place] [address] [phone] Elle Calixto MD [address] [place] [address] [phone] Closed nondisplaced fracture of fifth metatarsal bone of right foot, initial encounter (Primary Dx) Social History Tobacco Use Types Packs/Day Years Used Date Smoking Tobacco: Every Day Cigarettes 0.5 23 Passive Smoke Exposure: Current Smokeless Tobacco: Never Comments:Referred to a [employer] cessation program. Depression Answer Date Recorded Patient [...] [facility] MED & PEDS [address] [place] [address] Braden Hernandez MD [address] [place] [address] 05/23/2025 9:30 AM EST Office Visit [facility] MED & PEDS [address] [place] [address] Braden Hernandez MD [address] [place] [address] Scheduled Referrals Name Type Priority Associated Diagnoses Orde r Schedule Referral to Podiatry Outpatient Referral Urgent Closed nondisplaced fracture of fifth metatarsal bone of right foot, initial encounter Expected: 08/21/2023 (Approximate), Expires: 08/20/2024 documented as of this encounter Visit Diagnoses Diagnosis Closed nondisplaced fracture of fifth metatarsal bone of right foot, initial encounter- Primary documented in this encounter Additional Health Concerns Assessment Noted Time PHQ-9 Depression Total Score: 11 024 3:28 PM EDT documented as of this encounter Care Teams Machine I Trimmer Relationship Specialty Start Date End Date Fany Brown MD [address] [place] [address] PCP - General Internal Medicine 05/18/15 Kirby Lyle FNP [address] [place] [address] Nurse Practitioner Family Medicine 03/25/23 documented as of this encounter
--- OUTSIDE RECORDS SUMMARY | 2025-02-17 17:20 | XMS_ITS | Encounter Summary ---
Author Organization [employer] Address [address] [place] [address] Care Team Providers Care Entry Level Administrative Assistant Name Role Phone Fany Brown MD Primary Care Provider [phone] Kirby Lyle Unavailable Unavailable Reason for Visit * Reason Comments Med Refill Encounter Details Date Type Department Care Team (Late Contact Info) Description 04/29/2022 Refill [facility] MEDICINE [address] [place], [place] [phone] Fany Brown MD [address] [place] [address] Nausea Social History Tobacco Use Types Packs/Day Years [...] suspected to have Coronavirus/COVID-19? No / Unsure 04/29/2022 2:38 PM EST documented as of this encounter Plan of Treatment Upcoming Encounters Date Type Department Care Team (Late Contact Info) Description 02/21/2025 3:30 PM EST Office Visit [facility] MED & PEDS [address] [place], [place] [phone] Braden Hernandez MD [address] [place], [place] [phone] 05/23/2025 9:30 AM EST Office Visit [facility] MED & PEDS [address] [place], [place] [phone] Braden Hernandez MD [address] [place], [place] [phone] documented as of this encounter Visit Diagnoses Diagnosis Nausea Nausea alone documented in this encounter Care Teams Entry Level Administrative Assistant Relationship Specialty Start Date End Date Fany Brown MD [address] [place] [address] PCP - General Internal Medicine 05/18/15 Kirby Lyle FNP [address] [place] [address] Nurse Practitioner Family Medicine 03/25/23 documented as of this encounter
--- OUTSIDE RECORDS SUMMARY | 2025-02-17 17:20 | XMS_ITS | Encounter Summary ---
Author Organization [employer] Address [address] [facility] 7 [place] [address] Care Team Providers Care Pyridine Operator Name Role Phone Fany Brown MD Primary Care Provider [phone] Kirby Lyle Unavailable Unavailable Encounter Details Date Type Department Care Team (Late st Contact Info) Description 04/22/2024 Orders Only [facility] MED & PEDS [address] [place], [place] [phone] Fany Brown MD [address] [place] [address] Social History Tobacco Use Types Packs/Day Years Used Date Smoking Tobacco: Every Day Cigarettes 0.5 23 Passive Smoke Exposure: Current Smokeless Tobacco: Never Comments:Referred to a [facility] cessation program. Depression Answer Date Recorded Patient [...] Description 02/21/2025 3:30 PM EST Office Visit [facility] MED & PEDS [address] [place] [address] Braden Hernandez MD [address] [place] [address] 05/23/2025 9:30 AM EST Office Visit [facility] MED & PEDS [address] [place] [address] Braden Hernandez MD [address] [place] [address] documented as of this encounter Visit Diagnoses Not on filedocumented in this encounter Additional Health Concerns Assessment Noted Time PHQ-9 Depression Total Score: 11 024 3:28 PM EDT documented as of this encounter Care Teams Pyridine Operator Relationship Specialty Start Date End Date Fany Brown MD [address] [place] [address] PCP - General Internal Medicine 05/18/15 Kiryb Lyle FNP [address] [place] [address] Nurse Practitioner Family Medicine 03/25/23 documented as of this encounter
--- OUTSIDE RECORDS SUMMARY | 2025-02-17 17:20 | XMS_ITS | Encounter Summary ---
Author Organization [employer] Address [address] [facility] 7 [place] [address] Care Team Providers Care Drivers License Examiner Name Role Phone Fany Brown MD Primary Care Provider [phone] Kirby Lyle Unavailable Unavailable Encounter Details Date Type Department Care Team (Late st Contact Info) Description 07/21/[address] [facility] MED & PEDS [address] [place], [place] [phone] Fany Brown MD [address] [place] [address] Muscle spasm Social History Tobacco Use Types Packs/Day Years Used Date Smoking Tobacco: Every Day Cigarettes 0.5 23 Smokeless Tobacco: Never Comments:Referred to a [employer] [facility] cessation program. Depression Answer Date Recorded [...] Description 02/21/2025 3:30 PM EST Office Visit [facility] MED & PEDS [address] [place] [address] Braden Hernandez MD [address] [place] [address] 05/23/2025 9:30 AM EST Office Visit [facility] MED & PEDS [address] [place] [address] Braden Hernandez MD [address] [place] [address] documented as of this encounter Visit Diagnoses Diagnosis Muscle spasm Spasm of muscle documented in this encounter Additional Health Concerns Assessment Noted Time PHQ-9 Depression Total Score: 024 3:28 PM EDT documented as of this encounter Care Teams Drivers License Examiner Relationship Specialty Start Date End Date Fany Brown MD [address] [place] [address] PCP - General Internal Medicine 05/18/15 Kirby Lyle FNP [address] [place] [address] Nurse Practitioner Family Medicine 03/25/23 documented as of this encounter
--- OUTSIDE RECORDS SUMMARY | 2025-02-17 17:20 | XMS_ITS | Encounter Summary ---
Author Organization [employer] Address [address] [facility] 7 [place] [address] Care Team Providers Care Mold Chipper Name Role Phone Fany Brown MD Primary Care Provider [phone] Kirby Lyle Unavailable Unavailable Reason for Visit * Reason Comments Med Refill Encounter Details Date Type Department Care Team ([facility] st Contact Info) Description 05/27/2024 Refill [facility] MEDICINE [address] [place] [address] Genaro James MD [address] [place] [address] Social History Tobacco Use Types Packs/Day Years [...] 3:30 PM EST Office Visit [facility] MED & PEDS [address] [place] [address] Braden Hernandez MD [address] [place] [address] 05/23/2025 9:30 AM EST Office Visit [facility] MED & PEDS 505 [place], [place] [phone] Braden Hernandez MD [address] [place] [address] documented as of this encounter Visit Diagnoses Not on filedocumented in this encounter Additional Health Concerns Assessment Noted Time PHQ-9 Depression Total Score: 024 3:28 PM EDT documented as of this encounter Care Teams Mold Chipper Relationship Specialty Start Date End Date Fany Brown MD [address] [place] [address] PCP - General Internal Medicine 05/18/15 Kirby Lyle FNP [address] [place] [address] Nurse Practitioner Family Medicine 03/25/23 documented as of this encounter
--- OUTSIDE RECORDS SUMMARY | 2025-02-17 17:20 | XMS_ITS | Encounter Summary ---
Author Organization [employer] Address [address] [facility] 7 [place] [address] Care Team Providers Care Qa Intern Name Role Phone Fany Brown MD Primary Care Provider [phone] Kirby Lyle Unavailable Unavailable Reason for Visit * Reason Comments Med Refill Encounter Details Date Type Department Care Team ([facility] st Contact Info) Description 04/30/2022 Refill [facility] MED & PEDS [address] [place] [address] Fany Bronw MD 505 [place] [address] Muscle spasm Social History Tobacco Use Types [...] PM EST documented as of this encounter Miscellaneous Notes * Telephone Encounter - Radha Nix RN - 05/10/2022 4:18 PM EST Received message from pt portal. Pt states her pharmacy is requesting a PA for the Tizanidine. Please follow up with request. Thank you. documented in this encounter Plan of Treatment Upcoming Encounters Date Type Department Care Team (Late st Contact Info) Description 02/21/2025 3:30 PM EST Office Visit [facility] MED & PEDS [address] [place] [address] Braden Hernandez MD [address] [place], [place] [phone] 05/23/2025 9:30 AM EST Office Visit [facility] MED & PEDS [address] [place] [address] Braden Hernandez MD [address] [place], [place] [phone] documented as of this encounter Visit Diagnoses Diagnosis Muscle spasm Spasm of muscle documented in this encounter Care Teams Qa Intern Relationship Specialty Start Date End Date Fany Brown MD 505 [place] [address] PCP - General Internal Medicine 05/18/15 Kirby Lyle FNP [address] [place] [address] Nurse Practitioner Family Medicine 03/25/23 documented as of this encounter
--- OUTSIDE RECORDS SUMMARY | 2025-02-17 17:20 | XMS_ITS | Encounter Summary ---
Author Organization [employer] Address [address] [facility] 7 [place] [address] Care Team Providers Care Cake Wrapper Name Role Phone Fany Brown MD Primary Care Provider [phone] Kirby Lyle Unavailable Unavailable Reason for Visit * Reason Onset Date Comments Med Refill 03/22/2024 Encounter Details Date Type Department Care Team ([facility] st Contact Info) Description 03/22/2024 Refill [facility] MED & PEDS [address] [place], [place] [phone] Fany Brown MD [address] [place] [address] Nausea Social History Tobacco Use Types Packs/Day Years Used Date Smoking Tobacco: Every Day Cigarettes 0.5 23 Passive Smoke Exposure: Current Smokeless Tobacco: Never Comments:Referred to a [facility] cessation program. Depression Answer Date Recorded Patient [...] 02/21/2025 3:30 PM EST Office Visit [facility] MED & PEDS [address] [place] [address] Braden Hernandez MD [address] [place] [address] 05/23/2025 9:30 AM EST Office Visit [facility] MED & PEDS [address] [place] [address] Braden Hernandez MD [address] [place] [address] documented as of this encounter Visit Diagnoses Diagnosis Nausea Nausea alone documented in this encounter Additional Health Concerns Assessment Noted Time PHQ-9 Depression Total Score: 11 024 3:28 PM EDT documented as of this encounter Care Teams Cake Wrapper Relationship Specialty Start Date End Date Fany Brown MD [address] [place] [address] PCP - General Internal Medicine 05/18/15 Kirby Lyle FNP [address] [place] [address] Nurse Practitioner Family Medicine 03/25/23 documented as of this encounter
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
--- OUTSIDE RECORDS SUMMARY | 2025-02-17 17:20 | XMS_ITS | Encounter Summary ---
Author Organization [employer] Address 75 [facility] 7t [place] [address] Care Team Providers Care Compressor Operator Name Role Phone Fany Brown MD Primary Care Provider [phone] Kirby Lyle Unavailable Unavailable Reason for Visit * Reason Onset Date Comments Med Refill Appointment 06/07/2023 [facility] Encounter Details Date Type Department Care Team (Late st Contact Info) Description 06/07/2023 Refill [facility] MEDICINE [address] [place] [address] Kirby Lyle FNP Social History Tobacco Use Types Packs/Day Years [...] encounter Miscellaneous Notes * Telephone Encounter - Cecilia Thorne MA - 06/11/2023 9:50 AM EST T/C placed to pt regarding to re-schedule her appt as tele-visit -. Pt agrees to schedule for 06/30/23. documented in this encounter Plan of Treatment Upcoming Encounters Date Type Department Care Team (Late st Contact Info) Description 02/21/2025 3:30 PM EST [facility]EDS [address] [place] [address] Braden Hernandez MD [address] [place] [address] 05/23/2025 9:30 AM EST Office Visit [facility] PEDS [address] [place] [address] Braden Hernandez MD [address] [place] [address] documented as of this encounter Visit Diagnoses Not on filedocumented in this encounter Additional Health Concerns Assessment Noted Time PHQ-9 Depression Total Score: 16 023 10:43 AM EST documented as of this encounter Care Teams Compressor Operator Relationship Specialty Start Date End Date Fany Brown MD [address] [place] [address] PCP - General Internal Medicine 05/18/15 Kirby Lyle FNP [address] [place] [address] Nurse Practitioner Family Medicine 03/25/23 documented as of this encounter
--- OUTSIDE RECORDS SUMMARY | 2025-02-17 17:20 | XMS_ITS | Encounter Summary ---
Author Organization [employer] Address [address] [place] [address] [address] [place] [address] Care Team Providers Care Repair Department Supervisor Name Role Phone Fany Brown MD Primary Care Provider [phone] Kirby Lyle Unavailable Unavailable Encounter Details Date Type Department Care Team ([facility] Contact Info) Description 05/22/2022 Orders Only [facility] [address] [place] [address] [phone] Fany Brown MD [address], [place] [phone] Chronic bilateral low back pain with bilateral sciatica (Primary Dx); Muscle spasm Social History Tobacco Use Types [...] Upcoming Encounters Date Type Department Care Team ([facility] Contact Info) Description 02/21/2025 3:30 PM EST Office Visit [facility] [address] [place], [place] [phone] Braden Hernandez MD [address], [place] [phone] 05/23/2025 9:30 AM EST Office Visit [facility] [address] [place], [place] [phone] Braden Hernandez MD [address] [place] [phone] documented as of this encounter Visit Diagnoses Diagnosis Chronic bilateral low back pain with bilateral sciatica- Primary Muscle spasm Spasm of muscle documented in this encounter Care Teams Repair Department Supervisor Relationship Specialty Start Date End Date Fany Brown MD [address] [place] [address] PCP - General Internal Medicine 05/18/15 Kirby Lyle FNP [address] [place] [address] Nurse Practitioner Family Medicine 03/25/23 documented as of this encounter
--- OUTSIDE RECORDS SUMMARY | 2025-02-17 17:20 | XMS_ITS | Clinical Summary ---
Author Organization [employer] Address [address] [place] [address] Care Team Providers Care Bi Application Developer Name Role Phone Fany Brown MD Primary Care Provider [phone] Kirby Lyle Unavailable Unavailable Allergies No known active allergies Medications * This document contains information received from the source organization and may not represent a complete record from that organization. docusate sodium (Colace) 100 MG capsule TAKE 1 CAPSULE BY MOUTH AT BEDTIME NEEDED 022 Active Levonorgestrel (Liletta, 52 MG,) 20.1 MCG/DAY intrauterine device inserted 10/10/20 Active naloxone (Narcan) 4 mg/0.1 mL nasal spray spray 0.1 milliliter by intranasal route in 1 nostril may repeat dose every 2-3 minutes as needed alternating nostrils with each dose 021 Active polyethylene glycol, PEG, 3350 (Glycolax) 17 GM/SCOOP powder STIR 17GM INTO 8 OUNCES OF WATER, OR JUICE, AND DRINK DAILY NEEDED / DIRECTED 022 Active Multiple Vitamins-Mineral s (Centrum Adults) tablet take 1 tablet by oral route every day with food Active Nutritional Supplements (Ensure Original) liquid 2 cans a day 237 mL 11 023 Active lidocaine (Uro-Jet) 2 % gelIndications:A cute right ankle pain,Acute pain of right foot Insert into the urethra if needed for mild pain. 20 mL 1 024 Active Diclofenac Sodium 1 % gelIndications:M edial epicondylitis of right elbow To apply to the affected area 4 times a day. 100 g 1 024 Active SUMAtriptan (Imitrex) 50 MG tablet Take 1 tablet (50 mg) by mouth 1 (one) time if needed for migraine for up to 36 doses. May repeat dose once in 2 hours if no relief. Do not exceed 2 doses in 24 hours. 9 tablet 3 024 Active gabapentin (Neurontin) 400 MG capsule Take 1 capsule (400 mg) by mouth 3 times daily. 90 capsule 11 025 2025 Active valACYclovir (Valtrex) 500 MG tabletIndication s:Herpes TAKE 1 TABLET(500 MG) BY MOUTH TWICE DAILY 60 tablet 5 025 Active diclofenac (Cataflam) 50 MG tabletIndication s:Muscle spasm TAKE 1 TABLET(50 MG) BY MOUTH EVERY 8 HOURS 90 tablet 1 025 Active atomoxetine (Strattera) 25 MG capsuleIndicatio ns:Attention deficit disorder (ADD) in adult Take 2 capsules (50 mg) by mouth Once per day. Swallow capsule whole; do not open. If opened accidentally, do not touch eyes; wash hands immediately (product is an eye irritant). 60 capsule 1 025 Active gabapentin (Neurontin) 100 MG capsuleIndicatio ns:Chronic midline thoracic back pain TAKE 2 CAPSULES(200 MG) BY MOUTH EVERY 8 HOURS 180 capsule 3 025 Active chlorhexidine (Peridex) 0.12 % solutionIndicati ons:Tooth ache RINSE AND GARGLE 15 ML BY MOUTH OR THROAT FOR UP TO 14 DAYS NEEDED FOR WOUND CARE DO NOT SWALLOW 473 mL 025 Active lidocaine (Lidoderm) 5 % patchIndications :Chronic midline thoracic back pain APPLY 1 PATCH TOPICALLY TO THE SKIN EVERY DAY IN THE MORNING. MAY WEAR UP TO 12 HOURS 30 patch 3 025 Active tiZANidine (Zanaflex) 4 MG tabletIndication s:Muscle spasm TAKE 2 TABLET(8 MG) BY MOUTH EVERY 12 HOURS NEEDED FOR MUSCLE SPASMS 120 tablet 2 025 Active buprenorphine-na loxone (Suboxone) 2-0.5 MG per sublingual filmIndications: Opioid type dependence, continuous (CMS/HCC) ([facility]) Place 1 Film under the tongue Once per day. To use with the 8mg-2mg dose (total 18mg-4.5mg daily) 28 Film 2 025 Active Buprenorphine HCl-Naloxone HCl (Suboxone) 8-2 MG SL filmIndications: Opioid type dependence, continuous (CMS/HCC) ([facility]) Place 2 Film under the tongue Once per day. To use with the 2mg-0.5mg dose (total 18mg-4.5mg daily) 56 Film 2 025 Active hydrOXYzine pamoate (Vistaril) 25 MG capsule TAKE 1 CAPSULE(25 MG) BY MOUTH EVERY 6 HOURS NEEDED FOR ANXIETY 90 capsule 3 025 Active diclofenac (Cataflam) 50 MG tabletIndication s:Muscle spasm TAKE 1 TABLET(50 MG) BY MOUTH EVERY 8 HOURS 90 tablet 1 025 Active bacitracin-polym yxin b (Polysporin) ointment Apply topically 2 times daily. 30 g Active ondansetron (Zofran) 4 MG tabletIndication s:Nausea TAKE 1 TABLET(4 MG) BY MOUTH EVERY 8 HOURS 30 tablet 3 025 Active acetaminophen (Tylenol 8 Hour) 650 MG ER tabletIndication s:Chronic midline thoracic back pain Take 1 tablet (650 mg) by mouth every 8 (eight) hours if needed for mild pain. Do not crush, chew, or split. 90 tablet 3 025 Active DULoxetine (Cymbalta) [address] capsuleIndicatio ns:Moderate episode of recurrent major depressive disorder (CMS/HCC) ([facility]) Take 1 capsule (30 mg) by mouth 2 times daily. 60 capsule 1 025 Active clonazePAM (KlonoPIN) 1 MG tabletIndication s:Anxiety disorder, unspecified type Take 1 tablet (1 mg) by mouth 2 times daily. 60 tablet 025 Active amoxicillin-clav ulanate (Augmentin) 875-125 MG tabletIndication s:Acute recurrent frontal sinusitis Take 1 tablet by mouth 2 times daily for 10 days. 20 tablet 025 2024 Active ondansetron (Zofran) 4 MG tabletIndication s:Nausea TAKE 1 TABLET(4 MG) BY MOUTH EVERY 8 HOURS 30 tablet 3 025 2024 Discontinued acetaminophen (Tylenol 8 Hour) 650 MG ER tabletIndication s:Chronic midline thoracic back pain TAKE 1 TABLET(650 MG) BY MOUTH EVERY 8 HOURS NEEDED FOR MILD PAIN. DO NOT CRUSH, CHEW, OR SPLIT 90 tablet 025 2024 Discontinued(R eorder (will not trigger notification to Pharmacy)) DULoxetine (Cymbalta) [address] Pino ns:Moderate episode of recurrent major depressive disorder (CMS/HCC) (HCC) TAKE 1 CAPSULE(30 MG) BY MOUTH TWICE DAILY 60 capsule 1 025 2024 Discontinued(R eorder (will not trigger notification to Pharmacy)) clonazePAM (KlonoPIN) 1 MG tabletIndication s:Anxiety disorder, unspecified type TAKE 1 TABLET(1 MG) BY MOUTH IN THE MORNING AND AT BEDTIME NEEDED FOR ANXIETY 60 tablet 025 2024 Discontinued(R eorder (will not trigger notification to Pharmacy)) Active Problems Problem Noted Date Diagnosed Date Closed nondisplaced fracture of fifth metatarsal bone of right foot 08/21/2023 Acute right ankle pain 08/08/2023 Acute pain of right foot 08/08/2023 Sleep disorder 02/10/2023 Assessment & Plan (02/10/2023 11:12 AM EDT): Falls asleep without problems but awakens every 2 hours or so. Snores, dry mouth, sore throat. High suspicion for sleep apnea. She will discuss with her PCP a referral for sleep study. Attention deficit disorder (ADD) in adult 2022 Assessment & Plan (07/31/2023 2:20 PM EDT): Based on history and presentation she does appear to have ADD. Agree with pt that stimulant medication would not be appropriate with her other medications. Doing well with Strattera 25 mg daily. Continue Wellbutrin XL 300 mg daily. Assessment & Plan (06/30/2023 4:32 PM EDT): Based on history and presentation she does appear to have ADD. Agree with pt that stimulant medication would not be appropriate with her other medications. Doing well with Strattera 25 mg daily. Continue Wellbutrin XL 300 mg daily. Assessment & Plan (02/10/2023 11:10 AM EDT): Based on history and presentation she does appear to have ADD. Agree with pt that stimulant medication would not be appropriate with her other medications. Had good early response to Strattera 18 mg once daily, but efficacy has waned. Will now increase to Strattera 25 mg daily. Continue Wellbutrin XL 300 mg daily. Assessment & Plan (12/17/2022 4:05 PM EDT): Based on history and presentation she does appear to have ADD. Agree with pt that stimulant medication would not be appropriate with her other medications. Will trial Strattera 18 mg once daily. Continue Wellbutrin XL 300 mg daily. Moderate episode of recurren t major depressive disorder ([facility]) 07/23/2022 Assessment & Plan (07/31/2023 2:20 PM EDT): She tried without Wellbutrin XL 300 mg daily and mood was much worse, so she has resumed that now. Will also continue Duloxetine 30 mg BID. Referring for counseling. On 06/30/2023 provider informed the patient that I would be retiring, but we would make every effort to ensure smooth transition of care. Meanwhile F/U with me in approx 6 weeks. She agrees with the plan Assessment & Plan (06/30/2023 4:34 PM EDT): She tried without Wellbutrin XL 300 mg daily and mood was much worse, so she has resumed that now. Will also continue Duloxetine 30 mg BID. Today 06/30/2023 provider informed the patient that I would be retiring, but we would make every effort to ensure smooth transition of care. Meanwhile F/U with me in approx 1 month. She agrees with the plan Assessment & Plan (02/10/2023 11:09 AM EDT): Patient had recurrence of anxiety with panic attacks and mental breakdown after tapering off the Duloxetine. She has resumed Duloxetine 30 mg daily and will now increase again to Duloxetine 30 mg BID. Conitnue Wellbutrin XL 300 mg daily. F/U with me in 6-8 weeks. She agrees with the plan. Assessment & Plan (12/17/2022 4:04 PM EDT): Provider discouraged pt from discontinuing the Wellbutrin XL 300 mg, as it is likely the most effective medication she is taking for depression, energy, and even helps with ADD. It is extremely unlikely to be causing weight gain. If she wants to decrease pill burden, she can decrease the Duloxetine 30 mg to once daily for 2- 3 weeks, then stop. F/U with me in 4-6 weeks. She agrees with the plan. Assessment & Plan (07/23/2022 4:15 PM EDT): Change to Wellbutrin XL 300 mg once daily in the morning, which may be less disruptive of sleep. Continue Duloxetine 30 mg BID for depression and chronic pain. F/U with me in 2 months. She agrees with the plan. Fracture in accidental fall 06/19/2021 Overview (01/12/2025): Diagnosed by ER in November/2021 Generalized anxiety disorder 08/14/2015 Assessment & Plan (07/31/2023 2:19 PM EDT): Intolerant of Clonidine, with worsened fatigue, light-headedness. Continue Clonazepam 1 mg BID, taken every 12 hours, Hydroxyzine Pamoate 25 mg every 6 hours as needed, taken at first sign of impending panic attack. She currently gets Gabapentin 100 mg from PCP, and will discuss with him option of increasing that. Utilize coping skills. Referring for counseling. Also would be interested in [facility], and we will send her information about hours. Assessment & Plan (06/30/2023 4:30 PM EDT): Intolerant of Clonidine, with worsened fatigue, light-headedness. Provider declined to increase quantity of Clonazepam. Continue Clonazepam 1 mg BID, taken every 12 hours. May try alternate formulation of Hydroxyzine Pamoate 25 mg every 6 hours as needed. She currently gets Gabapentin 100 mg from PCP, which could be increased as needed. Will hold off on other changes pending her Cardiology evaluation. Assessment & Plan (02/10/2023 11:09 AM EDT): Intolerant of Clonidine, with worsened fatigue, light-headedness. Continue Clonazepam 1 mg BID, taken every 12 hours. Continue Hydroxyzine 25 mg 1 tablet BID plus 2 at bedtime. Assessment & Plan (2023 10:22 AM EDT): Assessment: Patient with anhedonia, low mood, sleep disturbance, fatigue, poor appetite, low self-esteem, crying spells, isolation, diminished ability to concentrate, anxiousness, persistent worry, diminished ability to relax, restlessness, irritability, panic attacks, reckless behavior during attack and fearfulness. Factors contributing to her sxs are, hx of substance use, Hx of trauma, hx of self harm, low self-esteem. Patient will benefit from Ind. Therapy. At this time Maribell Langford meets criteria for Visit Diagnoses: Problem List Items Addressed This Visit Other Generalized anxiety disorder Uncomplicated opioid dependence (CMS/HCC) Moderate episode of recurrent major depressive disorder (CMS/HCC) Patient ready to address current needs Yes Strengths include willing to seek treatment PLAN: 1. Follow up with [facility]: Recommended for follow-up: [facility] appt 2. Patient goal is improve mental health 3. Behavioral Recommendations a. Ind. Therapy, referral will be submitted. b. Mindfulness Assessment & Plan (12/17/2022 4:06 PM EDT): Intolerant of Clonidine, with worsened fatigue, light-headedness. Continue Clonazepam 1 mg BID, taken every 12 hours. Continue Hydroxyzine 25 mg 1 tablet BID plus 2 at bedtime. Assessment & Plan (07/23/2022 4:14 PM EDT): Intolerant of Clonidine, with worsened fatigue, light-headedness. Continue Clonazepam 1 mg BID, taken every 12 hours. Continue Hydroxyzine 25 mg 1 tablet BID plus 2 at bedtime. 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 Assessment & Plan (06/30/2023 4:33 PM EDT): Continue with [facility] program and Suboxone. Assessment & Plan (02/10/2023 11:10 AM EDT): Continue with [facility] program and Suboxone. Assessment & Plan (12/17/2022 4:06 PM EDT): Continue with [facility] program and Suboxone. Assessment & Plan (07/23/2022 4:15 PM EDT): Continue with [facility] program and Suboxone. Anxiety 01/19/2013 Overview (01/12/2025): Diagnosed and treating since. Panic attacks 01/19/2013 Overview (01/12/2025): Diagnosed and treating since. 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 Anxiety about visiting dentist 1988 Overview (01/12/2025): My entire life! Resolved Problems Problem Noted Date Diagnosed Date Resolved Date Depressive disorder 08/14/2015 07/24/19 23 Encounters * This document contains information received from the source organization and may not represent a complete record from that organization. Date Type Department Care Team Description 02/17/2025 1:15 PM EDT Office Visit [facility] [address] [place] [address] Fany Brown MD Acute right ankle pain (Primary Dx); Annual physical exam; Pain involving joint of finger of left hand; Easy bruising; Routine screening for STI (sexually transmitted infection); Acute recurrent frontal sinusitis; Frequency of micturition; Stress incontinence; Generalized anxiety disorder; Encounter for immunization 02/17/2025 Travel 02/16/2025 Telephone [facility] [address] [place] [address] Fany Brown MD chart prep 02/14/2025 Telephone [facility] [address] [place], [place] [phone] Fany Brown MD 02/14/2025 Refill [facility] [address] [place] [address] Fany Brown MD Moderate episode of recurrent major depressive disorder (CMS/HCC) ([facility]); Anxiety disorder, unspecified type 02/09/2025 Patient Outreach [address] [address] Fany Brown MD Pre-visit Planning (SDOH screening negative and Tobacco screening negative) 01/31/2025 Refill [facility] [address] [place] [address] Fany Brown MD Muscle spasm; Chronic midline thoracic back pain; Moderate episode of recurrent major depressive disorder (CMS/HCC) (HCC) 01/28/2025 Refill [facility] [address] [place] [address] Fany Brown MD Nausea; Anxiety disorder, unspecified type 01/19/2025 Orders Only [facility] [address] [place] [address] Tran Sanchez MD Pain involving joint of finger of left hand (Primary Dx) 01/18/2025 Results Follow-Up [facility] [address] [place] [address] Tran Sanchez MD XR Hand 3+ Views Left 01/13/2025 2:00 PM EDT Office Visit [facility] [address] [place] [address] Tran Sanchez MD Pain involving joint of finger of left hand (Primary Dx) 01/13/2025 Refill [facility] [address] [place] [address] Fany Brown MD Anxiety disorder, unspecified type 01/13/2025 Travel 01/13/2025 Telephone [facility] [address] [place] [address] Adebayo Westfall, CRYSTAL GROWER No Show 01/12/2025 Telephone [facility] [address] [place] [address] Fany Brown MD chart prep 01/12/2025 Telephone [facility] [address] [place] [address] Fany Brown MD Nurse Triage 01/08/2025 Refill [facility] [address] [place] [address] Fany Brown MD Moderate episode of recurrent major depressive disorder (CMS/HCC) 01/04/2025 Refill [facility] [address] [place] [address] Fany Brown MD Chronic midline thoracic back pain 12/24/2024 Refill [facility] [address] [place] [address] Fany Brown MD Muscle spasm 12/07/2024 Refill [facility] [address] [place] [address] Fany Brown MD Anxiety disorder, unspecified type 12/07/2024 Refill [facility] [address] [place] [address] Braden Hernandez MD Opioid type dependence, continuous (CMS/HCC) 11/25/2024 Refill [facility] [address] [place] [address] Fany Brown MD Chronic midline thoracic back pain 11/22/2024 3:30 PM EDT Telemedicine [facility] [address] [place] [address] Braden Hernandez MD Opioid type dependence, continuous (CMS/HCC) 11/22/2024 Travel from Last 3 Months Immunizations Immunization Administration Dates Next Due DTaP 10/03/1992, 2,08/03/1989,09/02,1988 HPV, Quadrivalent 01/26/2007,09/25/2006,06/24/19 07 Hep B, Adolescent or Pediatric 03/09/2000,1998,01/10/1999 Hib (HbOC) 12/03/1989 IPV 10/03/1992, 2,08/03/1989,09/02,1988 Influenza injectable quadriv alent IIV4 with preservative 01/31/2016,05/18/2015 Influenza, IIV3, injectable 02/23/2011, 0 MMR 09/02/1997,07/03/1989 Meningococcal MCV4P [id number] 11/18/2006 OPV, Trivalent 10/03/1992, 2,08/03/1989,09/02,1988 TD (adult), 2 Lf tetanus tox oid, preservative free, adsorbed 01/10/1999 Tdap 02/17/2025,09/30/2013,11/18/2006 Social History Tobacco Use Types Packs/Day Years Used Date Smoking Tobacco: Every Day Cigarettes 0.5 23 Passive Smoke Exposure: Current Smokeless Tobacco: Never Tobacco Cessation:Ready to Q uit: Not Asked; Counseling Given: Not Answered Comments:Referred to a smoking cessation program. Depression Answer Date Recorded Patient [...] Orientation Straight 01/30/2025 7: 57 PM EDT Last Filed Vital Signs Vital Sign Reading Time Taken Comments Blood Pressure 133/82 02/17/2025 1:41 PM EDT Pulse 74 02/17/2025 1:41 PM EDT Temperature 37.1 C (98.8 F) 02/17/2025 1:41 PM EDT Respiratory Rate 20 02/17/2025 1:41 PM EDT Oxygen Saturation 98% 05/28/2024 1:33 PM EST Inhaled Oxygen Concentration - - Weight 78.9 kg (174 lb) 02/17/2025 1:41 PM EDT Height 162.6 cm (5' 4 ) 02/17/2025 1:41 PM EDT Body Mass Index 29.87 02/17/2025 1:41 PM EDT Plan of Treatment Upcoming Encounters Date Type Department Care Team (Late st Contact Info) Description 02/21/2025 3:30 PM EST Office Visit [facility] [address] [place] [address] Braden Hernandez MD [address] [place] [address] [phone] 05/23/2025 9:30 AM EST Office Visit [facility] [address] [place] [address] Braden Hernandez MD [address] [place] [address] [phone] Health Maintenance Due Date Last Done Comments Family Planning (PISQ) 01/20/2003 Pneumococcal Vaccine: Pediatrics (0 to 5 Years) and At-Risk Patients (6 to 49) Years (1 of 2 - PCV) 01/20/2007 Dental Prophylaxis 12/12/2008 06/13/2008 Pap Smear 01/20/2009 Dental Oral Exam 10/17/2018 04/17/2018, 01/04/2016 Dental X-Ray: Bitewings 04/18/2019 04/17/2018, 01/03 Dental X-Ray: Full Mouth 02/11/2021 018, 03/12/2016, 01/04/2016 Cervical Cancer Screening 11/25/2023 HPV/Cotest 11/25/2023 11/24/2018 Disability Screening 05/28/2025 05/28/2024 Depression Monitoring 08/18/2025 02/17/2025, 025 Influenza Vaccine (#1) 2025 6, 05/18/2015, 02/23/2011, Additional history exists Postponed from 12/20/2024 (Patient Refused) SDOH Screening 02/09/2026 02/09/2025 Alcohol/Substance Use Screening 02/17/2026 02/17/2025 COVID-19 Vaccine ( - season) 2026 Postponed from 12/20/2024 (Patient Refused) Tobacco Screening 02/17/2026 02/17/2025 Lipid Panel 02/12/2027 02/12/2022 DTaP/Tdap/Td Vaccines (9 - Td or Tdap) 02/17/2035 02/17/2025, 09/30/2013, 11/18/2006, Additional history exists Zoster Vaccines (1 of 2) 01/20/2038 RSV Patients and Patients Aged 60 years or older (1 - 1-dose 75+ series) 01/20/2063 HIB Vaccines Completed 12/03/1989 IPV Vaccines Completed 10/03/1992, 09/19, 08/04/1991, Additional history exists Hepatitis B Vaccines Completed 03/09/2000, 03/01/1999, 01/10/1999 Meningococcal Vaccine Completed 11/18/2006 HPV Vaccines Completed 01/26/2007, 10/2006, 06/23/2006 HIV Screening Completed 02/12/2022 Hepatitis C Screening Completed 02/12/2022 Hepatitis A Vaccines Aged Out No long er eligible based on patient's age to complete this topic Meningococcal B Vaccine Aged Out No l onger eligible based on patient's age to complete this topic RSV under 20 months Aged Out No longe r eligible based on patient's age to complete this topic Rotavirus Vaccines Aged Out No longer eligible based on patient's age to complete this topic Procedures Procedure Name Priority Date/Time Associated Diagnosis Comments POCT URINALYSIS DIPSTICK Routine 02/17/2025 4:17 PM EDT Frequency of micturition XR HAND 3+ VIEWS LEFT Routine 01/17/2025 Pain involving joint of finger of left hand ZZZ HISTORICAL HEPATITIS C AB W/REFL TO HCV RNA, QN, PCR Routine 02/12/2022 8:33 AM EDT HIV 1/2 ANTIGEN/ANTIBODY, FOURTH GENERATION W/RFL Routine 02/12/2022 8:33 AM EDT LIPID PANEL, STANDARD Routine 02/12/2022 8:32 AM EDT ZZZ HISTORICAL HPV MRNA E6/E7 Routine 11/24/2018 4:21 PM EDT BITEWINGS - 4 RADIOGRAPHIC IMAGES Routine 04/17/2018 12:00 AM EST PERIODIC ORAL EVALUATION - ESTABLISHED PATIENT Routine 04/17/2018 12:00 AM EST PANORAMIC RADIOGRAPHIC IMAGE Routine 02/10/2018 12:00 AM EDT PROPHYLAXIS - ADULT Routine 06/13/2008 1 2:00 AM EST from Last 3 Months or Most Recently Relevant to Health Maintenance Results * POCT Urinalysis (02/17/2025 4:17 PM [...] CARE TEST ENTER/ED IT ORDERABLES Final Result * XR Hand 3+ Views Left (01/17/2025) Anatomical Region Laterality Modality Upper Extremities, Hand Left Radiogra phic Imaging Tran Snachez MD IMG XR PROCEDURES Final Resul t * HEPATITIS C AB W/REFL TO HCV RNA, QN, PCR (02/12/2022 8:33 AM EDT) HEPATITIS C ANTIBODY NON-REACTI VE NON-REACT TALITA CONVERTED LEGACY LABS INDEX 0.03 <1.00 CONVERTED LEGACY LABS Comment: HCV antibody was non-reactive. There is no laboratory evidence of HCV infection. In most cases, no further action is required. However, if recent HCV exposure is suspected, a test for HCV RNA (test code 63073) is suggested. For additional information please refer to http://education.iMICROQ/faq/IGP11p7 (This link is being provided for informational/ educational purposes only.) 02/12/2022 8:33 AM EDT Braden Hernandez MD HISTORICAL/NON ORDERABLE LABS Fi nal Result CONVERTED LEGACY LABS * HIV 1/2 ANTIGEN/ANTIBODY,FOURTH GENERATION W/RFL (02/12/2022 8:33 AM EDT) HIV-1/2 ANTIGEN AND ANTIBODIES, 4TH GENERATION W/ REFLEX NON-REACT TALITA NON-REACT TALITA CONVERTED LEGACY LABS Comment: HIV-1 antigen and HIV-1/HIV-2 antibodies were not detected. There is no laboratory evidence of HIV infection. PLEASE NOTE: This information has been disclosed to you from records whose confidentiality may be protected by state law. If your state requires such protection, then the state law prohibits you from making any further disclosure of the information without the specific written consent of the person to whom it pertains, or as otherwise permitted by law. A general authorization for the release of medical or other information is NOT sufficient for this purpose. For additional information please refer to http://VectorLearning.Genoom.ClickOn/faq/XDS768 (This link is being provided for informational/ educational purposes only.) The performance of this assay has not been clinically validated in patients less than 2 years old. 02/12/2022 8:33 AM EDT us Braden Hernandez MD LAB BLOOD ORDERABLES Final Resul t CONVERTED LEGACY LABS * (ABNORMAL) LIPID PANEL, STANDARD (02/12/2022 8:32 AM EDT) Chol/HDLC Ratio 5.8(H) <5.0 (calc) CONVERTED LEGACY LABS Cholesterol, Total 222(H) <200 mg/dL CONVERTED LEGACY LABS HDL Cholesterol 38(L) > OR = 50 mg/dL CONVERTED LEGACY LABS LDL Cholesterol 154(H) mg/dL (calc) CONVERTED LEGACY LABS Comment: Reference range: <100 Desirable range <100 mg/dL for primary prevention; <70 mg/dL for patients with CHD or diabetic patients with > or = 2 CHD risk factors. LDL-C is now calculated using the Samuel-Sixto calculation, which is a validated novel method providing better accuracy than the Friedewald equation in the estimation of LDL-C. Samuel MORSE et al. ROBBY. 2013;310(19): 9236-5172 (http://education.MeetCast.ClickOn/faq/KLQ165) Non-HDL Cholesterol 184(H) <130 mg/dL (calc) CONVERTED [facility] Comment: For patients with diabetes plus 1 major ASCVD risk factor, treating to a non-HDL-C goal of <100 mg/dL (LDL-C of <70 mg/dL) is considered a therapeutic option. Triglycerides 165(H) <150 mg/dL CONVE RTED [facility] 02/12/2022 8:32 AM EDT us Fany Brown MD LAB BLOOD ORDERABLES Final Result CONVERTED [facility] * HPV mRNA E6/E7 (11/24/2018 4:21 PM EDT) HPV mRNA E6/E7 Not Detected NOT DETECTED [facility] Comment: This test was performed using the APTIMA(R) HPV Assay ([employer] This assay detects E6/E7 viral messenger RNA (mRNA) from 14 high-risk HPV types (16,18,31,33,35,39,45,51, 52,56,58,59,66,68). For additional information please refer to: http://education.iMICROQ/faq/JBP715c5 (This link is being provided for informational/ educational purposes only.) The analytical performance characteristics of this assay have been determined by [facility] [place], [place]. The modifications have not been cleared or approved by the FDA. This assay has been validated pursuant to the CLIA regulations and is used for clinical purposes. Test Performed by [facility], [facility], [address] [place] [address] Leonardo Easton M.D., Ph.D., Director of Laboratories , CLIA [id number] Please note: Effective 01/01/2016, HPV testing will be performed using [employer] APTIMA test which targets mRNA. Detecting mRNA instead of DNA, as in older methods, offers significant improvements in specificity. 11/24/2018 4:21 PM EDT us Julissa Rebolledo CNM HISTORICAL/NON ORDERABLE LABS Final Result Performing Organization Address [facility] Co de Phone Number [facility] [address] from Last 3 Months or Most Recently Relevant to Health Maintenance Insurance [facility] C3 Care Teams Bi Application Developer Relationship Specialty Start Date End Date Fany Brown MD [address] [place] [address] PCP - General Internal Medicine 05/18/15 Kirby Lyle FNP [address] [place] [address] Nurse Practitioner Family Medicine 03/25/23
--- OUTSIDE RECORDS SUMMARY | 2025-02-17 17:20 | XMS_ITS | Encounter Summary ---
Author Organization [employer] Address [address] [facility] 7 [place] [address] Care Team Providers Care Motorcoach Operator Name Role Phone Fany Brown MD Primary Care Provider +1 [phone] Kirby Lyle Unavailable Unavailable Reason for Visit * Reason Comments Med Refill Encounter Details Date Type Department Care Team ([facility] st Contact Info) Description 11/13/2024 Refill [facility] MED & PEDS [address] [place] [address] Fany Brown MD 505 [place] [address] Chronic midline thoracic back pain Social History Tobacco Use Types Packs/Day Years Used Date Smoking Tobacco: Every Day Cigarettes 0.5 23 Passive Smoke Exposure: Current Smokeless Tobacco: Never Comments:Referred to a smok ng cessation program. Depression Answer Date Recorded [...] 3:30 PM EST Office Visit [facility] MED & PEDS [address] [place] [address] Braden Hernandez MD [address] [place] [address] 05/23/2025 9:30 AM EST Office Visit [facility] MED & PEDS [address] [place] [address] Braden Hernandez MD [address] [place] [address] documented as of this encounter Visit Diagnoses Diagnosis Chronic midline thoracic back pain documented in this encounter Additional Health Concerns Assessment Noted Time PHQ-9 Depression Total Score: 11 024 3:28 PM EDT documented as of this encounter Care Teams Motorcoach Operator Relationship Specialty Start Date End Date Fany Brown MD 505 [place] [address] PCP - General Internal Medicine 05/18/15 Kirby Lyle FNP [address] [place] [address] Nurse Practitioner Family Medicine 03/25/23 documented as of this encounter
--- OUTSIDE RECORDS SUMMARY | 2025-02-17 17:21 | XMS_ITS | Encounter Summary ---
Author Organization [employer] Address [address] [place] [address] 7 [place] [address] Care Team Providers Care Surgical Territory Manager Name Role Phone Fany Brown MD Primary Care Provider [phone] Kirby Lyle Unavailable Unavailable Reason for Referral * Cardiac Stress Testing (Routine) - Closed Specialty Diagnoses / Procedures Referred By Contmaira pretty Referred To Contact Cardiology Diagnoses Palpitations Procedures Holter monitor - 48 hour Fany Brown MD [address] [place] [address] Phone: tel: fax: [address] Phone: tel: fax: Referral ID Status Reason Start Date Expiration Date Visits Re quested Visits Authorized [id number] Closed 03/20/2023 03/19/2024 1 1 Encounter Details Date Type Department Care Team (Late st Contact Info) Description 03/20/2023 Orders Only [facility] CHC MED & PEDS [address] [place] [address] Fany Brown MD [address] [place] [address] Snoring (Primary Dx); Palpitations; Chronic midline thoracic back pain Social History Tobacco Use Types Packs/Day Years Used Date Smoking Tobacco: Every Day Cigarettes 0.5 23 Smokeless Tobacco: Never Comments:Referred to a [facility] cessation program. Depression Answer Date Recorded Patient Health Questionnaire-9 Score 12 02/10/2023 Patient Health Questionnaire-9 Score 12 02/10/2023 Last PHQ-9: Questionnaire Data Not on file 1 Depression Answer Date Recorded Patient Health Questionnaire-2 Score 3 02/10/2023 Comments Unknown Sex and Gender Information Value Date Recorded Sex Assigned at Female 02/18/2022 10:24 AM EDT Legal Sex Female 10:24 AM EDT Gender Identity Female 02/18/2022 10:24 AM EDT Sexual Orientation Straight 01/30/2025 7: 57 PM EDT documented as of this encounter Progress Notes * Fany Brown MD - 03/20/2023 9:31 PM EST Subjective Patient ID: Maribell Langford is a 33 y.o. female who presents for No chief complaint on file.. HPI Review of Systems Objective Physical Exam Assessment/Plan documented in this encounter Plan of Treatment Upcoming Encounters Date Type Department Care Team (Late st Contact Info) Description 02/21/2025 3:30 PM EST Office Visit [facility] MED & PEDS [address] [place] [address] Braden Hernandez MD [address] [place] [address] 05/23/2025 9:30 AM EST Office Visit [facility] MED & PEDS [address] [place] [address] Braden Hernandez MD [address] [place] [address] Scheduled Orders Name Type Priority Associated Diagnoses Orde r Schedule Holter monitor - 48 hour Cardiac Services Routine Palpitations Expected: 03/20/2023 (Approximate), Expires: 03/20/2025 documented as of this encounter Visit Diagnoses Diagnosis Snoring- Primary Other dyspnea and respiratory abnormality Palpitations Chronic midline thoracic back pain documented in this encounter Additional Health Concerns Assessment Noted Time PHQ-9 Depression Total Score: 12 023 10:26 AM EDT documented as of this encounter Care Teams Surgical Territory Manager Relationship Specialty Start Date End Date Fany Brown MD 505 [facility] [place] [address] PCP - General Internal Medicine 05/18/15 Kirby Lyle FNP 505 [facility] [place] [address] Nurse Practitioner Family Medicine 03/25/23 documented as of this encounter
--- OUTSIDE RECORDS SUMMARY | 2025-02-17 17:21 | XMS_ITS | Encounter Summary ---
Author Organization [employer] Address [address] [facility] 7 [place] [address] Care Team Providers Care Post Splitter Name Role Phone Fany Brown MD Primary Care Provider [phone] Kirby Lyle Unavailable Unavailable Reason for Visit * Reason Onset Date Comments Med Refill 07/05/2024 Encounter Details Date Type Department Care Team ([facility] st Contact Info) Description 07/05/2024 Refill [facility] CHC MED & PEDS [address] [place] [address] Fany Brown MD 505 [place] [address] Social History Tobacco Use Types Packs/Day Years Used Date Smoking Tobacco: Every Day Cigarettes 0.5 23 Passive Smoke Exposure: Current Smokeless Tobacco: Never Comments:Referred to a [facility] cessation program. Depression Answer Date Recorded Patient [...] 3:30 PM EST Office Visit [facility] MED & PEDS [address] [place] [address] Braden Hernandez MD [address] [place] [address] 05/23/2025 9:30 AM EST Office Visit [facility] MED & PEDS [address] [place] [address] Braden Hernandez MD [address] [place] [address] documented as of this encounter Visit Diagnoses Not on filedocumented in this encounter Additional Health Concerns Assessment Noted Time PHQ-9 Depression Total Score: 11 024 3:28 PM EDT documented as of this encounter Care Teams Post Splitter Relationship Specialty Start Date End Date Fany Brown MD 505 [place] [address] PCP - General Internal Medicine 05/18/15 Kirby Lyle FNP [address] [place] [address] Nurse Practitioner Family Medicine 03/25/23 documented as of this encounter
--- OUTSIDE RECORDS SUMMARY | 2025-02-17 17:21 | XMS_ITS | Encounter Summary ---
Author Organization [employer] Address [address] [facility] 7 [place] [address] Care Team Providers Care Private Pilot Name Role Phone Fany Brown MD Primary Care Provider [phone] [phone] Kirby Lyle Unavailable Unavailable Reason for Visit * Reason Onset Date Comments Med Refill 11/10/2023 Encounter Details Date Type Department Care Team ([facility] st Contact Info) Description 11/10/2023 Refill [facility] CHC MED & PEDS [address] [place], [place] [phone] Fany Brown MD 505 [place] [address] Nausea Social History Tobacco Use Types Packs/Day Years Used Date Smoking Tobacco: Every Day Cigarettes 0.5 23 Passive Smoke Exposure: Current Smokeless Tobacco: Never Comments:Referred to a [facility] cessation program. Depression Answer Date Recorded Patient [...] encounter Miscellaneous Notes * Telephone Encounter - Sana Ames RN - 11/19/2023 11:50 AM EDT TC to pt regarding message below. Pt verbalized understanding. documented in this encounter Plan of Treatment Upcoming Encounters Date Type Department Care Team (Late st Contact Info) Description 02/21/2025 3:30 PM EST Office Visit [facility] MED & PEDS [address] [place] [address] Braden Hernandez MD [address] [place] [address] 05/23/2025 9:30 AM EST Office Visit [facility] MED & PEDS [address] [place] [address] Braden Hernandez MD [address] [place] [address] documented as of this encounter Visit Diagnoses Diagnosis Nausea Nausea alone documented in this encounter Additional Health Concerns Assessment Noted Time PHQ-9 Depression Total Score: 11 024 3:28 PM EDT documented as of this encounter Care Teams Private Pilot Relationship Specialty Start Date End Date Fany Brown MD [address] [place] [address] PCP - General Internal Medicine 05/18/15 Kirby Lyle FNP [address] [place] [address] Nurse Practitioner Family Medicine 03/25/23 documented as of this encounter
--- OUTSIDE RECORDS SUMMARY | 2025-02-17 17:21 | XMS_ITS | Encounter Summary ---
Author Organization [employer] Address [address] [facility] 7t [place] [address] Care Team Providers Care Grapple Crew Leader Name Role Phone Fany Brown MD Primary Care Provider [phone] Kirby Lyle Unavailable Unavailable Reason for Visit * Reason Onset Date Comments Med Refill 12/23/2023 Encounter Details Date Type Department Care Team (Late st Contact Info) Description 12/23/2023 Refill [facility] CHC MED & PEDS [address] [place] [address] Braden Hernandez MD [address] [place] [address] Opioid type dependence, continuous (CMS/HCC) Social History Tobacco Use Types Packs/Day Years Used Date Smoking Tobacco: Every Day Cigarettes 0.5 23 Passive Smoke Exposure: Current Smokeless Tobacco: Never Comments:Referred to a [facility] cessation program. Depression Answer Date Recorded Patient [...] [facility] [address] [place] [address] Braden Hernandez MD [address] [place] [address] 05/23/2025 9:30 AM EST Office Visit [facility] MED & PEDS [address] [place] [address] Braden Hernandez MD [address] [place] [address] documented as of this encounter Visit Diagnoses Diagnosis Opioid type dependence, continuous (CMS/HCC) ([facility]) Opioid type dependence, continuous documented in this encounter Additional Health Concerns Assessment Noted Time PHQ-9 Depression Total Score: 11 024 3:28 PM EDT documented as of this encounter Care Teams Grapple Crew Leader Relationship Specialty Start Date End Date Fany Brown MD [address] [place] [address] PCP - General Internal Medicine 05/18/15 Kirby Lyle FNP [address] [place] [address] Nurse Practitioner Family Medicine 03/25/23 documented as of this encounter
--- OUTSIDE RECORDS SUMMARY | 2025-02-17 17:21 | XMS_ITS | Encounter Summary ---
Author Organization [employer] Address [address] [facility] 7 [place] [address] Care Team Providers Care Tin Flopper Name Role Phone Fany Brown MD Primary Care Provider [phone] Kirby Lyle Unavailable Unavailable Reason for Visit * Reason Onset Date Comments Med Refill 11/20/2023 Encounter Details Date Type Department Care Team ([facility] st Contact Info) Description 11/20/2023 Refill [facility] CHC MED & PEDS [address] [place], [place] [phone] Fany Brown MD [address] [place] [address] Nausea Social History Tobacco Use Types Packs/Day Years Used Date Smoking Tobacco: Every Day Cigarettes 0.5 23 Passive Smoke Exposure: Current Smokeless Tobacco: Never Comments:Referred to a [facility] cessation program. Depression Answer Date [...] Description 02/21/2025 3:30 PM EST Office Visit [facility] MED & PEDS [address] [place] [address] Braden Hernandez MD [address] [place] [address] 05/23/2025 9:30 AM EST Office Visit [facility] MED & PEDS [address] [place] [address] Braden Hernandez MD [address] [place] [address] documented as of this encounter Visit Diagnoses Diagnosis Nausea Nausea alone documented in this encounter Additional Health Concerns Assessment Noted Time PHQ-9 Depression Total Score: 11 024 3:28 PM EDT documented as of this encounter Care Teams Tin Flopper Relationship Specialty Start Date End Date Fany Brown MD [address] [place] [address] PCP - General Internal Medicine 05/18/15 Kirby Lyle FNP [address] [place] [address] Nurse Practitioner Family Medicine 03/25/23 documented as of this encounter
--- OUTSIDE RECORDS SUMMARY | 2025-02-17 17:21 | XMS_ITS | Encounter Summary ---
Author Organization [email or web address] Address [address] [place] [address] 7 [place] [address] Care Team Providers Care Knife Setter Grinder Machine Name Role Phone Fany Brown MD Primary Care Provider [phone] Kirby Lyle Unavailable Unavailable Reason for Visit * Reason Comments Med Refill Encounter Details Date Type Department Care Team (Late Contact Info) Description 09/29/[address] [facility] MED & PEDS [address] [place], [place] [phone] Braden Hernandez MD [address] [place] [phone] Opioid type dependence, continuous (CMS/HCC) Social History [...] Description 02/21/2025 3:30 PM EST Office Visit [facility] MED & PEDS [address] [place], [place] [phone] Braden Hernandez MD [address] [place] [address] 05/23/2025 9:30 AM EST Office Visit [facility] CHC MED & PEDS [address] [place] [address] Braden Hernandez MD [address] [place], [place] [phone] documented as of this encounter Visit Diagnoses Diagnosis Opioid type dependence, continuous (CMS/HCC) (HCC) Opioid type dependence, continuous documented in this encounter Additional Health Concerns Assessment Noted Time PHQ-9 Depression Total Score: 15 023 2:14 PM EDT documented as of this encounter Care Teams Knife Setter Grinder Machine Relationship Specialty Start Date End Date Fany Brown MD [address] [place] [address] PCP - General Internal Medicine 05/18/15 Kirby Lyle FNP [address] [place] [address] Nurse Practitioner Family Medicine 03/25/23 documented as of this encounter
--- OUTSIDE RECORDS SUMMARY | 2025-02-17 17:21 | XMS_ITS | Encounter Summary ---
Author Organization [employer] Address [address] [place] [address] [place], [place] [address] Care Team Providers Care Social Media Manager Name Role Phone Fany Brown MD Primary Care Provider [phone] Kirby Lyle Unavailable Unavailable Reason for Visit * Reason Comments Med Refill Encounter Details Date Type Department Care Team ([facility] Contact Info) Description 09/29/2022 Refill [facility] MED & PEDS [address] [place] [address] Fany Brown MD [address] [place] [address] Social History Tobacco Use Types Packs/Day Years [...] Upcoming Encounters Date Type Department Care Team ([facility] Contact Info) Description 02/21/2025 3:30 PM EST Office Visit [facility] MED & PEDS [address] [place] [address] Braden Hernandez MD [address] [place] [address] 05/23/2025 9:30 AM EST Office Visit [facility] CHC MED & PEDS [address] [place] [address] Braden Hernandez MD [address] [place], [place] [phone] documented as of this encounter Visit Diagnoses Not on filedocumented in this encounter Additional Health Concerns Assessment Noted Time PHQ-9 Depression Total Score: 15 023 2:14 PM EDT documented as of this encounter Care Teams Social Media Manager Relationship Specialty Start Date End Date Fany Brown MD [address] [place] [address] PCP - General Internal Medicine 05/18/15 Kirby Lyle FNP [address] [place] [address] Nurse Practitioner Family Medicine 03/25/23 documented as of this encounter
--- OUTSIDE RECORDS SUMMARY | 2025-02-17 17:21 | XMS_ITS | Encounter Summary ---
Author Organization [employer] Address 75 [facility] 7t [place] [address] Care Team Providers Care Rubble Placer Name Role Phone Fany Brown MD Primary Care Provider [phone] Kirby Lyle Unavailable Unavailable Reason for Visit * Reason Comments Med Refill Encounter Details Date Type Department Care Team ([facility] st Contact Info) Description 12/23/2023 Refill [facility] CHC MED & PEDS [address] [place] [address] Braden Hernandez MD [address] [place] [address] Opioid type dependence, continuous (CMS/HCC) Social History Tobacco Use Types Packs/Day Years Used Date Smoking Tobacco: Every Day Cigarettes 0.5 23 Passive Smoke Exposure: Current Smokeless Tobacco: Never Comments:Referred to a [facility] cessation program. Depression Answer Date Recorded [...] Description 02/21/2025 3:30 PM EST Office Visit [facility] MED & PEDS [address] [place] [address] Braden Hernandez MD [address] [place] [address] 05/23/2025 9:30 AM EST Office Visit [facility] MED & PEDS [address] [place], [place] [phone] Braden Hernandez MD [address] [place] [address] documented as of this encounter Visit Diagnoses Diagnosis Opioid type dependence, continuous (CMS/HCC) ([facility]) Opioid type dependence, continuous documented in this encounter Additional Health Concerns Assessment Noted Time PHQ-9 Depression Total Score: 11 024 3:28 PM EDT documented as of this encounter Care Teams Rubble Placer Relationship Specialty Start Date End Date Fany Brown MD [address] [place] [address] PCP - General Internal Medicine 05/18/15 Kirby Lyle FNP [address] [place] [address] Nurse Practitioner Family Medicine 03/25/23 documented as of this encounter
--- OUTSIDE RECORDS SUMMARY | 2025-02-17 17:21 | XMS_ITS | Encounter Summary ---
Author Organization [employer] Address 75 [facility] 7 [place] [address] Care Team Providers Care Bandage Maker Name Role Phone Fany Brown MD Primary Care Provider [phone] Kirby Lyle Unavailable Unavailable Encounter Details Date Type Department Care Team (Late st Contact Info) Description 08/29/2023 Orders Only [facility] CHC MED & PEDS [address] [place], [place] [phone] Fany Brown MD [address] [place] [address] Chronic midline thoracic back pain (Primary Dx) Social History Tobacco Use Types [...] [facility] [address] [place] [address] Braden Hernandez MD [address] [place] [address] 05/23/2025 9:30 AM EST Office Visit [facility] MED & PEDS [address] [place] [address] Braden Hernandez MD [address] [place] [address] documented as of this encounter Visit Diagnoses Diagnosis Chronic midline thoracic back pain- Primary documented in this encounter Additional Health Concerns Assessment Noted Time PHQ-9 Depression Total Score: 11 024 3:28 PM EDT documented as of this encounter Care Teams Bandage Maker Relationship Specialty Start Date End Date Fany Brown MD [address] [place] [address] PCP - General Internal Medicine 05/18/15 Kirby Lyle FNP [address] [place] [address] Nurse Practitioner Family Medicine 03/25/23 documented as of this encounter
[2025-02-17 17:33] LABS: MANUAL DIFF FLAG NO
[2025-02-17 17:46] LABS: Appearance Urine Clear; Glucose Urine UA Negative (Negative); PH 5.5 (5.0-9.0); Specific Gravity - Urine 1.025 (1.005-1.025)
[2025-02-17 17:51] LABS: Hematocrit 43.7 % (37.0-47.0); Hemoglobin 13.7 g/dl (12.0-16.0); Imm Gran Abs Auto 0.06 X10*3/uL (0.00-0.03); Imm Gran Pct Auto 0.6 % (0.0-0.4); Lymphocytes Absolute Auto 2.7 X10*3/uL (1.2-4.9); Mean Corpuscular HGB Conc 31.4 g/dl (31.0-35.0); Mean Corpuscular Hemoglobin 29.7 pg (27.0-33.0); Mean Corpuscular Volume 94.8 fL (80.0-98.0); NRBC Abs Auto 0.000 X10*3/uL (0.0-0.012); NRBC Pct Auto 0.0 /100WBC (0.0-0.2); Platelet Count 360 X10*3/uL (160-400); Red Blood Count 4.61 X10*6/uL (4.20-5.50); White Blood Count 9.7 X10*3/uL (4.8-10.8)
[2025-02-17 18:08] LABS: Alanine Aminotransferase 18 U/L (0-31); Albumin Level 4.4 g/dL (3.5-5.0); Alkaline Phosphatase 53 U/L (39-117); Anion Gap 10 (12-20); Aspartate Amino Transferase 29 U/L (5-31); Blood Urea Nitrogen 19 mg/dL (9-16); Calcium 9.0 mg/dL (8.4-10.2); Carbon Dioxide 25 mmol/L (22-29); Chloride 107 mmol/L (96-108); Cholesterol 192 mg/dL (<200); Estimated Glomerular Filt Rate > 60; HDL Cholesterol 47 mg/dL (>40); Potassium 4.3 mmol/L (3.3-5.1); Sodium 138 mmol/L (135-145); Total Protein 7.2 g/dL (6.5-8.0); Triglycerides 135 mg/dL (<150)
[2025-02-18 05:08] LABS: HIV Num 1 0.06 S/CO (0.00-0.99); ~HepC Num1 0.09 S/CO (0.00-0.79); ~Hepatitis C Antibody Nonreactive (Nonreactive)
== END 2025-02-17 14:20 | disposition home or self-care (01) ==
LOC: HO.CHCLDS 14:19
PROVIDERS: Visit Provider Internal Medicine
DX: Z11.3 Encounter for screening for infections with a predominantly sexual mode of transmission (principal); Z11.59 Encounter for screening for other viral diseases; R23.3 Spontaneous ecchymoses; R35.0 Frequency of micturition
CPT/HCPCS: 36415; 80053; 80061; 81003; 84443; 85025; 86592; 86803; 87086; 87389

== ENCOUNTER 2025-03-22 16:43 | Outpatient (REF) | payer MEDICAID, SELFPAY ==
--- OUTSIDE RECORDS SUMMARY | 2025-03-22 13:15 | XMS_ITS | Encounter Summary ---
Author Organization [employer] Address [address] [place] [address] [address] [place] [address] Care Team Providers Care Biology Internship Name Role Phone Fany Brown MD Primary Care Provider [phone] Kirby Lyle Unavailable Unavailable Reason for Visit * Reason Comments Procedure Encounter Details Date Type Department Care Team (Latest Contact Info) Description 03/22/2025 1:15 PM EST Procedure Visit [facility] [address] [place] [address] Julissa Rebolledo CNM [address] [place] [address] Encounter for IUD removal (Primary Dx); Routine cervical smear; Vaginal discharge; Screening examination for venereal disease; Encounter for preconception consultation Social History Tobacco Use Types Packs/Day Years [...] Access Q2 Not on file 02/09/2025 Comments No Intention Date Recorded Wants to become (finding) 03/22 Sex and Gender Information Value Date Recorded Sex Assigned at Female 02/18/2022 10:24 AM EDT Legal Sex Female 10:24 AM EDT Gender Identity Female 02/18/2022 10:24 AM EDT Sexual Orientation Straight 01/30/2025 7: 57 PM EDT documented as of this encounter Last Filed Vital Signs Vital Sign Reading Time Taken Comments Blood Pressure 130/90 03/22/2025 2:06 PM EST Pulse 104 03/22/2025 2:06 PM EST Temperature 36.6 C (97.9 F) 03/22/2025 2:06 PM EST Respiratory Rate 18 03/22/2025 2:06 PM EST Oxygen Saturation 98% 03/22/2025 2:06 PM EST Inhaled Oxygen Concentration - - Weight 83.6 kg (184 lb 6.4 oz) 03/22/2025 2:06 P M EST Height - - Body Mass Index 31.65 02/17/2025 1:41 PM EDT documented in this encounter Progress Notes * Julissa Rebolledo CNM - 03/22/2025 1:15 PM ESTAssociated Order(s): IUD Management Subjective Patient ID: Maribell Langford is a 35 y.o. female who presents for IUD removal [facility] todd 2020. Largely amenorrheic. Last sexually active without a condom 1 day ago, declines EC. Here for removal as she would like to get . Due for pap, which she would like today. Unsureof last pap. 1 AMAB partner, no change in partner since serum labs. HIV, syphilis, Hep C negative 01/2025. Partner has 2 children. Gonorrhea/Chlamydia/trichomonas not run, will run with pap today. Notes occasional white discharge as well as possible folliculitis on right outer aspect of vulva. Known genital HSV, on suppressive Valtrex. Insufficient data for Cymbalta and gabapentin. She isn't currently taking Strattera, doesn't plan to take. Chronic constipation, would like refill on Miralax. Review of Systems Gastrointestinal: Positive for constipation. Genitourinary: Positive for vaginal discharge. Negative for dyspareunia, vaginal bleeding and vaginal pain. Objective BP (!) 130/90 (BP Location: Left arm, Patient Position: Sitting, BP Cuff Size: Adult) Pulse 104 Temp 97.9 ??F (36.6 ??C) (Oral) Resp 18 Wt 184 lb 6.4 oz (83.6 kg) LMP (LMP Unknown) SpO2 98% BMI 31.65 kg/m?? 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 Constitutional: Appearance: Normal appearance. Genitourinary: General: Normal vulva. Labia: Right: No rash, tenderness, lesion or injury. Left: No rash, tenderness, lesion or injury. Vagina: Normal. No signs of injury and foreign body. No vaginal discharge, erythema, tenderness, bleeding or lesions. Cervix: No cervical motion tenderness, discharge, friability, lesion, erythema, cervical bleeding or eversion. Uterus: Normal. Not enlarged and not tender. Adnexa: Right adnexa normal and left adnexa normal. Right: No mass, tenderness or fullness. Left: No mass, tenderness or fullness. Comments: IUD strings noted. Small healing area outer aspect right lower vulva, c/w resolving folliculitis. No exudate or streaking. Neurological: Mental Status: She is alert. Psychiatric: Mood and Affect: Mood normal. Behavior: Behavior normal. Assessment/Plan Diagnoses and all orders for this visit: Encounter for IUD removal IUD removed easily, see procedure note. Report if no menses by end april. IUD Management Date/Time: 03/22/2025 2:30 PM Performed by: Julissa Rebolledo CNM Authorized by: Julissa Rebolledo CNM Procedure: IUD removal Consent obtained by patient, parent, or legal power of sports attorney - including discussion of procedurerisks and benefits, patient questions answered, and patient education provided: yes Reason for removal: patient request Strings visualized: yes IUD grasped by forceps: yes IUD removed: yes Removed without complications: yes IUD intact: yes Routine cervical smear - Pap Smear Cotest today. Repeat 5 years if normal/HPV negative. Vaginal discharge None noted on exam. Gonorrhea/Chlamydia/trichomonas testing sent with pap. If bacterial vaginosis/yeast on pap, will treat. Screening examination for venereal disease - STI testing add on (NG, CT, Trich) Pap based STI testing sent. Encounter for preconception consultation Reviewed preconception counseling. sent in. She will stop current MVI. Urged toxin avoidance if trying to get for both self and partner. Reviewed that there is no amount of alcohol/MJ/cigarettes that is safe in , so best to avoid alcohol while trying to get . Let us know if she wants help with smoking cessation. Report missed menses. Report irregular periods, or if not after 6 months. She would like to [facility] with [facility] for care. Please continue all medications as currently prescribed but schedule appointment with PCP ELÍAS to address possible medication changes. Hydroxyzine, tizanidine, diclofenac and clonazepam not advised in . Will route chart to OBAT team to see if any changes advised with Suboxone to Subutex. Reviewed implications of HSV in . Continue valacyclovir for now. Keep OB provider informed of diagnosis. may be indicated if outbreak noted du ring or just prior to labor. Other orders - polyethylene glycol, PEG, 3350 (Glycolax) 17 GM/SCOOP powder; Take 17 g by mouth Once per day. STIR 17GM INTO 8 OUNCES OF WATER, OR JUICE, AND DRINK up to once DAILY NEEDED - Vit-Fe Fumarate-FA ( Plus) 27-1 MG tablet; One tablet by mouth daily documented in this encounter Plan of Treatment Upcoming Encounters Date Type Department Care Team (Late st Contact Info) Description 05/30/2025 3:30 PM EST Office Visit [facility] [address] [place] [address], [place] [phone] Braden Hernandez MD [address] [place], [place] [phone] Scheduled Orders Name Type Priority Associated Diagnoses Orde r Schedule Pap Smear Pathology and Cytology Routine Routine cervical smear Ordered: 03/22/2025 STI testing add on (NG, CT, Trich) Pathology and Cytology Routine Screening examination for venereal disease Ordered: 03/22/2025 documented as of this encounter Procedures Procedure Name Priority Date/Time Associated Diagnosis Comments RI REMOVAL INTRAUTERINE DEVICE IUD Routine 03/22/2025 2:30 PM EST Encounter for IUD removal documented in this encounter Results * RI REMOVAL INTRAUTERINE DEVICE IUD (03/22/2025 2:30 PM EST) Narrative Julissa Rebolledo CNM - 03/22/2025 2:30 PM EST Julissa Rebolledo CNM 03/22/2025 3:07 PM IUD Management Date/Time: 03/22/2025 2:30 PM Performed by: Julissa Rebolledo CNM Authorized by: Julissa Rebolledo CNM Procedure: IUD removal Consent obtained by patient, parent, or legal power of sports attorney - including discussion of procedure risks and benefits, patient questions answered, and patient education provided: yes Reason for removal: patient request Strings visualized: yes IUD grasped by forceps: yes IUD removed: yes Removed without complications: yes IUD intact: yes Julissa Rebolledo CNM IN CLINIC/BEDSIDE ORDERAB LES Final Result documented in this encounter Visit Diagnoses Diagnosis Encounter for IUD removal- Primary Routine cervical smear Screening for malignant neoplasm of the cervix Vaginal discharge Leukorrhea, not specified as infective Screening examination for venereal disease Encounter for preconception consultation documented in this encounter Additional Health Concerns Assessment Noted Time PHQ-9 Depression Total Score: 17 025 1:46 PM EDT documented as of this encounter Care Teams Biology Internship Relationship Specialty Start Date End Date Fany Brown MD [address] [place], [place] [phone] PCP - General Internal Medicine 05/18/15 Kirby Lyle FNP [address] [place] [address] [place] [address] Nurse Practitioner Family Medicine 03/25/23 documented as of this encounter
--- OUTSIDE RECORDS SUMMARY | 2025-03-22 17:23 | XMS_ITS | Clinical Summary ---
Author Organization [employer] Address [address] [facility] [address] [place] [address] Care Team Providers Care Rx Specialist Name Role Phone Fany Brown MD Primary Care Provider [phone] Kirby Lyle Unavailable Unavailable Allergies No known active allergies Medications * This document contains information received from the source organization and may not represent a complete record from that organization. docusate sodium (Colace) 100 MG capsule TAKE 1 CAPSULE BY MOUTH AT BEDTIME NEEDED 022 Active Levonorgestrel (Liletta, 52 MG,) 20.1 MCG/DAY intrauterine device inserted 10/10/20 021 Active naloxone (Narcan) 4 mg/0.1 mL nasal spray spray 0.1 milliliter by intranasal route in 1 nostril may repeat dose every 2-3 minutes as needed alternating nostrils with each dose 021 Active Nutritional Supplements (Ensure Original) liquid 2 [...] doses in 24 hours. 9 tablet 3 12/02/2 024 Active gabapentin (Neurontin) 400 MG capsule Take 1 capsule (400 mg) by mouth 3 times daily. 90 capsule 11 025 2025 Active valACYclovir (Valtrex) 500 MG tabletIndication s:Herpes TAKE 1 TABLET(500 MG) BY MOUTH TWICE DAILY 60 tablet 5 025 Active diclofenac (Cataflam) 50 MG tabletIndication s:Muscle spasm TAKE 1 TABLET(50 MG) BY MOUTH EVERY 8 HOURS 90 tablet 1 025 Active gabapentin (Neurontin) 100 MG capsuleIndicatio ns:Chronic midline thoracic back pain TAKE 2 CAPSULES(200 MG) BY MOUTH EVERY 8 HOURS 180 capsule 3 025 Active chlorhexidine (Peridex) 0.12 % solutionIndicati ons:Tooth ache RINSE AND GARGLE 15 ML BY MOUTH OR THROAT FOR UP TO 14 DAYS NEEDED FOR WOUND CARE DO NOT SWALLOW 473 mL 025 Active tiZANidine (Zanaflex) 4 MG tabletIndication s:Muscle spasm TAKE 2 TABLET(8 MG) BY MOUTH EVERY 12 HOURS NEEDED FOR MUSCLE SPASMS 120 tablet 2 025 Active hydrOXYzine pamoate (Vistaril) 25 MG capsule TAKE 1 CAPSULE(25 MG) BY MOUTH EVERY 6 HOURS NEEDED FOR ANXIETY 90 capsule 3 025 Active diclofenac (Cataflam) 50 MG tabletIndication s:Muscle spasm TAKE 1 TABLET(50 MG) BY MOUTH EVERY 8 HOURS 90 tablet 1 025 Active bacitracin-polym yxin b (Polysporin) ointment Apply topically 2 times daily. 30 g 025 Active ondansetron (Zofran) 4 MG tabletIndication s:Nausea [...] of recurrent major depressive disorder (CMS/HCC) (HCC) Take 1 capsule (30 mg) by mouth 2 times daily. 60 capsule 1 025 Active lidocaine (Lidoderm) 5 % patchIndications :Chronic midline thoracic back pain APPLY 1 PATCH TOPICALLY TO THE SKIN EVERY DAY IN THE MORNING. MAY WEAR UP TO 12 HOURS 30 patch 3 025 Active buprenorphine-na loxone (Suboxone) 2-0.5 MG per sublingual filmIndications: Opioid type dependence, continuous (CMS/HCC) (HCC) Place 1 Film under the tongue Once per day. To use with the 8mg-2mg dose (total 18mg-4.5mg daily) Do not start before March 14, 2025. 28 Film 2 025 2025 Active Buprenorphine HCl-Naloxone HCl (Suboxone) 8-2 MG SL filmIndications: Opioid type dependence, continuous (CMS/HCC) (HCC) Place 2 Film under the tongue Once per day. To use with the 2mg-0.5mg dose (total 18mg-4.5mg daily) Do not start before March 14, 2025. 56 Film 2 025 2025 Active clonazePAM (KlonoPIN) 1 MG tabletIndication s:Anxiety disorder, unspecified type TAKE 1 TABLET(1 MG) BY MOUTH TWICE DAILY 60 tablet 025 Active polyethylene glycol, PEG, 3350 (Glycolax) 17 GM/SCOOP powder Take 17 g by mouth Once per day. STIR 17GM INTO 8 OUNCES OF WATER, OR JUICE, AND DRINK up to once DAILY NEEDED 238 g 1 025 Active Vit-Fe Fumarate-FA ( Plus) 27-1 MG tablet One tablet by mouth daily 30 tablet 11 025 Active polyethylene glycol, PEG, 3350 (Glycolax) 17 GM/SCOOP powder STIR 17GM INTO 8 OUNCES OF WATER, OR JUICE, AND DRINK DAILY NEEDED / DIRECTED 022 2024 Discontinued(R eorder (will not trigger notification to Pharmacy)) Multiple Vitamins-Mineral s (Centrum Adults) tablet take 1 tablet by oral route every day with food 2024 Discontinued atomoxetine (Strattera) 25 MG capsuleIndicatio ns:Attention deficit disorder (ADD) in adult Take 2 capsules (50 mg) by mouth Once per day. Swallow capsule whole; do not open. If opened accidentally, do not touch eyes; wash hands immediately (product is an eye irritant). 60 capsule 1 025 2024 Discontinued lidocaine (Lidoderm) 5 % patchIndications :Chronic midline thoracic back pain APPLY 1 PATCH TOPICALLY TO THE SKIN EVERY DAY IN THE MORNING. MAY WEAR UP TO 12 HOURS 30 patch 3 025 2024 Discontinued clonazePAM (KlonoPIN) 1 MG tabletIndication s:Anxiety disorder, unspecified type Take 1 tablet (1 mg) by mouth 2 times daily. 60 tablet 025 2024 Discontinued amoxicillin-clav ulanate (Augmentin) 875-125 MG tabletIndication s:Acute recurrent frontal sinusitis Take 1 tablet by mouth 2 times daily for 10 days. 20 tablet 025 2024 buprenorphine-na loxone (Suboxone) 2-0.5 MG per sublingual filmIndications: Opioid type dependence, continuous (CMS/HCC) (HCC) Place 1 Film under the tongue Once per day. To use with the 8mg-2mg dose (total 18mg-4.5mg daily) 28 Film 2 025 2024 Discontinued(R eorder (will not trigger notification to Pharmacy)) Buprenorphine HCl-Naloxone HCl (Suboxone) 8-2 MG SL filmIndications: Opioid type dependence, continuous (CMS/HCC) (HCC) Place 2 Film under the tongue Once per day. To use with the 2mg-0.5mg dose (total 18mg-4.5mg daily) 56 Film 2 025 2024 Discontinued(R eorder (will not trigger [...] episode of recurren t major depressive disorder ([facility]) 07/23/2022 Assessment & Plan (07/31/2023 2:20 PM [...] seek treatment PLAN: 1. 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 Date Type Department Care Team Description 03/22/2025 1:15 PM EST Procedure Visit [address] [phone] Julissa Rebolledo CNM Encounter for IUD removal (Primary Dx); Routine cervical smear; Vaginal discharge; Screening examination for venereal disease; Encounter for preconception consultation 03/22/2025 Travel 03/21/[address] [address] Fany Brown MD Appointment Request 03/21/[address] [address] Fany Brown MD Nurse Triage 03/18/2025 Refill [facility] [address] [place] [address] Fany Brown MD Anxiety disorder, unspecified type 03/14/[address] [facility] [address] [place] [phone] Komal Barrett, GENNARO 03/14/[address] [address] Komal Barrett, GENNARO 03/07/[address] [facility] [address] [place] [phone] Komal Barrett, GENNARO Opioid type dependence, continuous (CMS/HCC) ([facility]) 03/03/[address] [facility] [address] [place] [phone] Fany Brown MD Chronic midline thoracic back pain 02/18/[address] [facility] [address] [place] [phone] Komal Barrett, GENNARO Opioid type dependence, continuous (CMS/HCC) ([facility]) 02/18/2025 Results Follow-Up [facility] [address] [place] [address] Fany Brown MD Comprehensive Metabolic Panel, CBC auto differential, Lipid Panel, Standard, Additional followed-up results: 6 02/17/2025 1:15 PM EDT Office Visit [facility] [address] [place] [address] Fany Brown MD Acute right ankle pain (Primary Dx); Annual physical exam; Pain involving joint of finger of left hand; Easy bruising; Routine screening for STI (sexually transmitted infection); Acute recurrent frontal sinusitis; Frequency of micturition; Stress incontinence; Generalized anxiety disorder; Encounter for immunization 02/17/2025 Travel 02/16/2025 Telephone [facility] [address] [place] [address] Fany Brown MD chart prep 02/14/2025 Telephone [facility] [address] [place] [address] Fany Brown MD 02/14/2025 Refill [facility] [address] [place] [address] Fany Brown MD Moderate episode of recurrent major depressive disorder (CMS/HCC) ([facility]); Anxiety disorder, unspecified type 02/09/2025 Patient Outreach [facility] [address] [place] [address] Fany Brown MD Pre-visit Planning (SDOH screening negative and Tobacco screening negative) 01/31/2025 Refill [facility] [address] [place] [address] Fany Brown MD Muscle spasm; Chronic midline thoracic back pain; Moderate episode of recurrent major depressive disorder (CMS/HCC) (HCC) 01/28/2025 Refill [facility] [address] [place] [address] Fany Brown MD Nausea; Anxiety disorder, unspecified type 01/19/2025 Orders Only [facility] [address] [place] [address] Tran Sanchez MD Pain involving joint of finger of left hand (Primary Dx) 01/18/2025 Results Follow-Up [facility] [address] [place] [address] Tran Sanchez MD XR Hand 3+ Views Left 01/13/2025 2:00 PM EDT Office Visit [facility] [address] [place] [address] Tran Sanchez MD Pain involving joint of finger of left hand (Primary Dx) 01/13/[address] [facility] [address] [place] [phone] Fany Brown MD Anxiety disorder, unspecified type 01/13/2025 Travel 01/13/[address] [address] Adebayo Westfall, SIDE PANEL PADDER No Show 01/12/2025 Telephone [facility] [address] [place] [address] Fany Brown MD chart prep 01/12/2025 Telephone [facility] [address] [place] [address] Fany Brown MD Nurse Triage 01/08/2025 Refill [facility] [address] [place] [address] Fany Brown MD Moderate episode of recurrent major depressive disorder (CMS/HCC) 01/04/2025 Refill [facility] [address] [place] [address] Fany Brown MD Chronic midline thoracic back pain 12/24/2024 Refill [facility] [address] [place] [address] Fany Brown MD Muscle spasm from Last 3 Months Immunizations Immunization Administration [...] oz) 03/22/2025 2:06 P M EST Height 162.6 cm (5' 4 ) 02/17/2025 1:41 PM EDT Body Mass Index 31.65 02/17/2025 1:41 PM EDT Plan of Treatment Upcoming Encounters Date Type Department Care Team (Late st Contact Info) Description 05/30/2025 3:30 PM EST Office Visit [facility] [address] [place] [address] Braden Hernandez MD [address] [place], [place] [phone] Health Maintenance Due Date Last Done Comments Pneumococcal Vaccine: Pediatrics (0 to 5 Years) [...] Use Screening 02/17/2026 02/17/2025 COVID-19 Vaccine ( season) 2026 Postponed from 12/20/2024 (Patient Refused) Family Planning (PISQ) 03/22/2026 03/22/2025 Tobacco Screening 03/22/2026 03/22/2025 Lipid Panel 02/17/2030 02/17/2025, 02/12/2022 DTaP/Tdap/Td Vaccines (9 - Td or [...] Completed 01/26/2007, 10/2006, 06/23/2006 HIV Screening Completed 02/17/2025, 02/12/2022 Hepatitis C Screening Completed 02/17/2025, 022 Hepatitis A Vaccines Aged Out No long [...] Procedure Name Priority Date/Time Associated Diagnosis Comments WI REMOVAL INTRAUTERINE DEVICE IUD Routine 03/22/2025 2:30 PM EST Encounter for IUD removal POCT URINALYSIS DIPSTICK Routine 02/17/2025 4:17 PM EDT Frequency of micturition RPR (MONITOR) W/REFL TITER Routine 02/17/2025 2:23 PM EDT Routine screening for STI (sexually transmitted infection) HEPATITIS C AB W/REFL TO HCV RNA, QN, PCR Routine 02/17/2025 2:23 PM EDT Routine screening for STI (sexually transmitted infection) HIV 1/2 ANTIGEN/ANTIBODY, FOURTH GENERATION W/RFL Routine 02/17/2025 2:23 PM EDT Routine screening for STI (sexually transmitted infection) TSH W/REFLEX TO FT4 Routine 02/17/2025 2 :23 PM EDT Easy bruising LIPID PANEL, STANDARD Routine 02/17/2025 2:23 PM EDT Easy bruising COMPREHENSIVE METABOLIC PANEL Routine 02/17/2025 2:23 PM EDT Easy bruising CBC WITH AUTO DIFFERENTIAL Routine 02/17/2025 2:23 PM EDT Easy bruising URINALYSIS WITH REFLEX MICROSCOPIC Routine 02/17/2025 1:30 PM EDT Routine screening for STI (sexually transmitted infection) CULTURE, URINE, ROUTINE Routine 02/17/2025 1:30 PM EDT Frequency of micturition XR HAND 3+ VIEWS LEFT Routine 01/17/2025 Pain involving joint of finger of left hand ZZZ HISTORICAL HPV MRNA E6/E7 Routine 11/24/2018 4:21 PM EDT BITEWINGS - 4 RADIOGRAPHIC IMAGES Routine 04/17/2018 12:00 AM EST PERIODIC ORAL EVALUATION - ESTABLISHED PATIENT Routine 04/17/2018 12:00 AM EST PANORAMIC RADIOGRAPHIC IMAGE Routine 02/10/2018 12:00 AM EDT PROPHYLAXIS - ADULT Routine 06/13/2008 1 2:00 AM EST from Last 3 Months or Most Recently Relevant to Health Maintenance Results * WI REMOVAL INTRAUTERINE DEVICE IUD (03/22/2025 2:30 PM EST) Narrative Julissa Rebolledo CNM - 03/22/2025 2:30 PM EST Julissa Rebolledo CNM 03/22/2025 3:07 PM IUD Management Date/Time: 03/22/2025 2:30 PM Performed by: Julissa Rebolledo CNM Authorized by: Julissa Rebolledo CNM Procedure: IUD removal Consent obtained by patient, parent, or legal power of trademark attorney - including discussion of procedure risks and benefits, patient questions answered, and patient education provided: yes Reason for removal: patient request Strings visualized: yes IUD grasped by forceps: yes IUD removed: yes Removed without complications: yes IUD intact: yes Julissa Rebolledo CNM IN CLINIC/BEDSIDE ORDERAB LES Final Result * POCT Urinalysis (02/17/2025 4:17 PM EDT) [...] Urine (Urine, Random) 02/17/2025 4:17 PM EDT us Fany Brown MD POINT OF CARE TEST ENTER/ED IT ORDERABLES Final Result * TSH with Reflex to Free T4 (02/17/2025 2:23 PM EDT) TSH reflex Free T4 1.15 0.32 - 4.0 uIU/mL [facility] Blood Venous blood specimen / Unknown 02/17/2025 2:23 PM EDT 02/17/2025 5:30 PM EDT Fany Brown MD LAB BLOOD ORDERABLES Final Result [facility] [address] [place] [address] [phone] * (ABNORMAL) CBC auto differential (02/17/2025 2:23 PM EDT) White Blood Count 9.7 4.8 - 10.8 X10*3/uL [facility] Red Blood Count 4.61 4.20 - 5.50 X10*6/uL [facility] Hemoglobin 13.7 12.0 - 16.0 g/dl [facility] Hematocrit 43.7 37.0 - 47.0 % [facility] Mean Corpuscular Volume 94.8 80.0 - 98.0 fL [facility] Mean Corpuscular Hemoglobin 29.7 27.0 - 33.0 pg [facility] Mean Corpuscular HGB Conc 31.4 31.0 - 35.0 g/dl [facility] Red Cell Distribution Width 14.9 11.0 - 16.0 % [facility] Platelet Count 360 160 - 400 X10*3/uL [facility] Mean Platelet Volume 9.6 9.4 - 12.3 fL [facility] Neutrophils Percent Auto 64.5 45 - 73 % [facility] Imm Gran Pct Auto 0.6(H) 0.0 - 0.4 % [facility] Lymphocytes Percent Auto 28.1 20 - 40 % [facility] Monocytes Percent Auto 4.4 2 - 11 % [facility] Eosinophils Percent Auto 2.0 0 - 4 % [facility] Basophils Percent Auto 0.4 0 - 2 % [facility] NRBC Pct Auto 0.0 0.0 - 0.2 /100WBC [facility] Neutrophils Absolute Auto 6.3 2.0 - 8.3 x10*3/uL [facility] Imm Gran Abs Auto 0.06(H) 0.00 - 0.03 X10*3/uL [facility] Lymphocytes Absolute Auto 2.7 1.2 - 4.9 X10*3/uL [facility] Monocytes Absolute Auto 0.4 0.1 - 1.2 X10*3/uL [facility] Eosinophils Absolute Auto 0.2 0.0 - 0.4 X10*3/uL [facility] Basophils Absolute Auto 0.0 0.0 - 0.2 X10*3/uL [facility] NRBC Abs Auto 0.000 0.0 - 0.012 X10*3/uL [facility] Blood Venous blood specimen / Unknown 02/17/2025 2:23 PM EDT 02/17/2025 5:30 PM EDT us Fany Brown MD LAB BLOOD ORDERABLES Final Result Performing Organization Address [facility] Co de Phone Number [facility] [address] [place] [phone] * Hepatitis C Antibody with Reflex to HCV, RNA, Quantitative, Real-Time PCR (02/17/2025 2:23 PM EDT) Hepatitis C Antibody Nonreactive Nonreactive [facility] Comment:Antibodies to HCV no t detected; does not exclude early acuteHCV infection. Blood Venous blood specimen / Unknown 02/17/2025 2:23 PM EDT 02/17/2025 5:30 PM EDT Fany Brown MD LAB BLOOD ORDERABLES Final Result Performing Organization Address City/[facility]/ZIP Co de Phone Number [facility] [address] [place] [phone] * RPR (Monitor) with Reflex to??Titer (02/17/2025 2:23 PM EDT) RPR (Monitor) w/Refl Titer NON-REACTI VE NON-REACT TALITA [facility] Comment:THIS TEST WAS PERFOR MED AT:[employer] [address] [phone] BOSS MD Rapid Plasma Reagin Ab Titer TNP [facility] Blood Venous blood specimen / Unknown 02/17/2025 2:23 PM EDT 02/17/2025 5:30 PM EDT Fany Brown MD LAB BLOOD ORDERABLES Final Result [facility] [address] [place] [phone] * HIV-1/2 Antigen and Antibodies, Fourth Generation, with Reflexes (02/17/2025 2:23 PM EDT) HIV AB/AG Nonreactive Nonreactive [facility] Comment:HIV-1 p24 Ag and/or HIV-1/HIV-2 Ab not detected.A test result that is nonreactive does not exclude thepossibility of exposure to or infection with HIV-1 and/orHIV-2. Nonreactive results in this assay for individualswith prior exposure to HIV-1 and/or HIV-2 may be due toantigen and antibody levels that are below the limit ofdetection of this assay.The [employer] HIV Ag/Ab Combo assay result andsupplemental assay results should be interpreted inconjunction with the patient's clinical presentation,history and other laboratory results. If the results areinconsistent with clinical evidence, additional testing issuggested to confirm the result. Blood Venous blood specimen / Unknown 02/17/2025 2:23 PM EDT 02/17/2025 5:30 PM EDT us Fany Brown MD LAB BLOOD ORDERABLES Final Result Performing Organization Address City/[facility]/ZIP Co de Phone Number [facility] [address] [place] [address] [phone] * (ABNORMAL) Lipid Panel, Standard (02/17/2025 2:23 PM EDT) Triglycerides 135 <150 mg/dL [facility] Comment:Desirable Triglyceri de: less than 150 mg/dLBorderline High Triglyceride 150-199 mg/dLHigh Triglyceride: 200-499 mg/dLVery High Triglyceride: greater than or equal to 5OO mg/dL Cholesterol 192 <200 mg/dL [facility] Comment:Desirable Cholestero l: less than 200 mg/dLBorderline High Cholesterol: 200-239 mg/dLHigh Cholesterol: greater than 239 mg/dL LDL Cholesterol Calculated 118(H) <100 mg/dL [facility] Comment:Desirable LDL: less than 100 mg/dLNear Optimal/Above Optimal LDL: 110- 129 mg/dLBorderline High LDL: 130-159 mg/dLHigh LDL: 160-189 mg/dLVery High LDL: greater than or equal to 190 mg/dL HDL Cholesterol 47 >40 mg/dL [facility] Comment:Desirable HDL: great er than 40 mg/dL Note: This HDL assay may give artificially low results in patients with liver disease. Blood Venous blood specimen / Unknown 02/17/2025 2:23 PM EDT 02/17/2025 5:30 PM EDT us Fany Brown MD LAB BLOOD ORDERABLES Final Result Performing Organization Address City/[facility]/ZIP Co de Phone Number [facility] [address] [place] [address] [phone] * (ABNORMAL) Comprehensive Metabolic Panel (02/17/2025 2:23 PM EDT) Sodium 138 135 - 145 mmol/L [facility] Potassium 4.3 3.3 - 5.1 mmol/L [facility] Chloride 107 96 - 108 mmol/L [facility] Carbon Dioxide 25 22 - 29 mmol/L [facility] Anion Gap 10(L) 12 - 20 [facility] Urea Nitrogen (BUN) 19(H) 9 - 16 mg/dL [facility] Creatinine, Serum 0.69 0.5 - 1.4 mg/dL [facility] Estimated Glomerular Filt Rate >60 [facility] Comment:Chronic Kidney Disea se: Estimated GFR < 60 mL/min/1.07n5Eremjm Kidney Disease: Estimated GFR < 15 mL/min/1.73m2 Glucose 98 60 - 115 mg/dL [facility] Calcium 9.0 8.4 - 10.2 mg/dL [facility] Bilirubin, Total 0.3 0.0 - 1.0 mg/dL [facility] Aspartate Amino Transferase 29 5 - 31 U/L [facility] Alanine Aminotransferase 18 0 - 31 U/L [facility] Total Protein 7.2 6.5 - 8.0 g/dL [facility] Albumin Level 4.4 3.5 - 5.0 g/dL [facility] Alkaline Phosphatase 53 39 - 117 U/L [facility] Blood Venous blood specimen / Unknown 02/17/2025 2:23 PM EDT 02/17/2025 5:30 PM EDT us Fany Brown MD LAB BLOOD ORDERABLES Final Result [facility] [address] [place] [phone] * Urinalysis w/reflex microscopic (02/17/2025 1:30 PM EDT) Color Urine Dark Yellow [facility] Appearance Urine Clear [facility] PH 5.5 5.0 - 9.0 [facility] Glucose Urine UA Negative Negative mg/dL [facility] Urine Blood Negative Negative [facility] Specific Wake - Urine 1.025 1.005 - 1.025 [facility] Urine Protein Negative Neg-Trace mg/dL [facility] Urine Ketones Trace Negative mg/dL [facility] Nitrite Urine Negative Negative [facility] Leukocyte Esterase Urine Negative Negative [facility] Urine (Urine, Random) 02/17/2025 1:30 PM EDT 02/17/2025 5:25 PM EDT Narrative [facility] - 02/17/2025 5:48 PM EDT [id number], Clean Catch us Fany Brown MD LAB URINE ORDERABLES Final Result Performing Organization Address City/[facility]/ZIP Co de Phone Number [facility] [address] [place] [phone] * Culture, Urine, Routine (02/17/2025 1:30 PM EDT) Urine Urine specimen obtained by clean catch procedure / Unknown 02/17/2025 1:30 PM EDT 02/17/2025 5:25 PM EDT Comment:UACC Narrative [facility] - 02/19/2025 12:11 PM EDT Urine Culture Report Result Urine Culture < 10,000 cfu/ml Specimen Source: Urine clean catch us Fany Brown MD LAB MICROBIOLOGY - GENERAL ORDERABLES Final Result Performing Organization Address City/[facility]/ZIP Co de Phone Number [facility] [address] [place] [phone] * XR Hand 3+ Views Left (01/17/2025) Anatomical Region Laterality Modality Upper Extremities, Hand Left Radiogra phic Imaging us Tran Sanchez MD IMG XR PROCEDURES Final Resul t * HPV mRNA E6/E7 (11/24/2018 4:21 PM EDT) HPV mRNA E6/E7 Not Detected NOT DETECTED [facility] Comment: This test was performed using the APTIMA(R) HPV Assay ([employer] This assay detects E6/E7 viral messenger RNA (mRNA) from 14 high-risk HPV types (16,18,31,33,35,39,45,51, 52,56,58,59,66,68). For additional information please refer to: http://education.Focus/faq/VBN289n0 (This link is being provided for informational/ educational purposes only.) The analytical performance characteristics of this assay have been determined by [employer] [place], [place]. The modifications have not been cleared or approved by the FDA. This assay has been validated pursuant to the CLIA regulations and is used for clinical purposes. Test Performed by [facility], [facility] [address] [place], [address] [place], [place] Leonardo Easton M.D., Ph.D., Director of Laboratories , CLIA [id number] Please note: Effective 01/01/2016, HPV testing will be performed using [employer]'s APTIMA test which targets mRNA. Detecting mRNA instead of DNA, as in older methods, offers significant improvements in specificity. 11/24/2018 4:21 PM EDT Julissa Rebolledo CNM HISTORICAL/NON ORDERABLE LABS Final Result [facility] Anywhere [address] from Last 3 Months or Most Recently Relevant to Health Maintenance Insurance [facility] [employer] Care Teams Rx Specialist Relationship Specialty Start Date End Date Fany Brown MD [address] [place] [address] PCP - General Internal Medicine 05/18/15 Kirby Lyle FNP [address] [place] [address] Nurse Practitioner Family Medicine 03/25/23
--- OUTSIDE RECORDS SUMMARY | 2025-03-22 17:23 | XMS_ITS | Encounter Summary ---
Author Organization [employer] Address [address] [facility] 7 [place] [address] Care Team Providers Care Warehouse Laborer Name Role Phone Fany Brown MD Primary Care Provider +1- [phone] Kirby Lyle Unavailable Unavailable Reason for Visit * Reason Onset Date Comments Med Refill 02/14/2025 Encounter Details Date Type Department Care Team ([facility] st Contact Info) Description 02/14/2025 Refill [facility] CH[facility] MED & PEDS [address] [place], [place] [phone] Fany Brown MD [address] [place] [address] Moderate episode of recurrent major depressive disorder (CMS/HCC) (HCC); Anxiety disorder, unspecified type Social History Tobacco Use Types Packs/Day Years Used Date Smoking Tobacco: Every Day Cigarettes 0.5 23 Passive Smoke Exposure: Current Smokeless Tobacco: Never Comments:Referred to a [facility] cessation program. Depression Answer Date [...] Author Nearly every day 02/17/2025 1:46 PM CHARLIET Koko Dimas [place] * Moving or speaking so slowly [...] Assessment Author Very difficult 02/17/2025 1:46 PM EDSona Rivero [place] documented as of this encounter Plan of Treatment Upcoming Encounters Date Type Department Care Team (Late st Contact Info) Description 05/30/2025 3:30 PM EST Office Visit [facility] CHC MED & PEDS [address] [place] [address] Braden Hernandez MD [address] [place] [address] documented as of this encounter Visit Diagnoses Diagnosis Moderate episode of recurrent major depressive disorder (CMS/HCC) (HCC) Anxiety disorder, unspecified type documented in this encounter Additional Health Concerns Assessment Noted Time PHQ-9 Depression Total Score: 11 024 3:28 PM EDT documented as of this encounter Care Teams Warehouse Laborer Relationship Specialty Start Date End Date Fany Brown MD [address] [place] [address] PCP - General Internal Medicine 05/18/15 Kirby Lyle FNP [address] [place] [address] Nurse Practitioner Family Medicine 03/25/23 documented as of this encounter
--- OUTSIDE RECORDS SUMMARY | 2025-03-22 17:23 | XMS_ITS | Encounter Summary ---
Author Organization [employer] Address [address] [place] [address] Care Team Providers Care Network Support Manager Name Role Phone Fany Brown MD Primary Care Provider +1- [phone] Kirby Lyle Unavailable Unavailable Reason for Visit * Reason Comments Med Refill Encounter Details Date Type Department Care Team (Late Contact Info) Description 04/29/2022 Refill [facility] MEDICINE [address] [place], [place] [phone] Fany Brown MD [address] [place] [address] Nausea Social History Tobacco Use Types Packs/Day [...] Department Care Team (Late Contact Info) Description 05/30/2025 3:30 PM EST Office Visit [facility] CHC MED & PEDS [address] [place], [place] [phone] Braden Hernandez MD [address] [place], [place] [phone] documented as of this encounter Visit Diagnoses Diagnosis Nausea Nausea alone documented in this encounter Care Teams Network Support Manager Relationship Specialty Start Date End Date Fany Brown MD [address] [place] [address] PCP - General Internal Medicine 05/18/15 Kirby Lyle FNP [address] [place] [address] Nurse Practitioner Family Medicine 03/25/23 documented as of this encounter
--- OUTSIDE RECORDS SUMMARY | 2025-03-22 17:23 | XMS_ITS | Encounter Summary ---
Author Organization [employer] Address [address] [place] [address] [address] [address] Care Team Providers Care Insulation Blanket Maker Name Role Phone Fany Brown MD Primary Care Provider +1- [phone] Kirby Lyle Unavailable Unavailable Reason for Visit * Reason Comments Med Refill Encounter Details Date Type Department Care Team (Late Contact Info) Description 05/27/2022 Refill [facility] MED & PEDS [address] [place] [address] Fany Brown MD [address] [place] [address] Muscle spasm Social History Tobacco Use Types [...] Description 05/30/2025 3:30 PM EST Office Visit [facility] CHC MED & PEDS [address] [place] [address] Braden Hernandez MD [address] [place], [place] [phone] documented as of this encounter Visit Diagnoses Diagnosis Muscle spasm Spasm of muscle documented in this encounter Care Teams Insulation Blanket Maker Relationship Specialty Start Date End Date Fany Brown MD [address] [place] [address] PCP - General Internal Medicine 05/18/15 Kirby Lyle FNP [address] [place] [address] Nurse Practitioner Family Medicine 03/25/23 documented as of this encounter
--- OUTSIDE RECORDS SUMMARY | 2025-03-22 17:23 | XMS_ITS | Encounter Summary ---
Author Organization [employer] Address [address] [facility] 7 [place] [address] Care Team Providers Care Licensed Loan Officer Name Role Phone Fany Brown MD Primary Care Provider +1- [phone] Kirby Lyle Unavailable Unavailable Encounter Details Date Type Department Care Team (Latest Contact Info) Description 02/18/2025 Results Follow-Up [facility] CHC MED & PEDS [address] [place], [place] [phone] Fany Brown MD [address] [place] [address] Comprehensive Metabolic Panel, CBC auto differential, Lipid Panel, Standard, Additional followed-up results: 6 Social History Tobacco Use Types Packs/Day Years Used Date Smoking Tobacco: Every Day Cigarettes 0.5 23 Passive Smoke Exposure: Current Smokeless Tobacco: Never Comments:[facility]. Depression Answer Date [...] Description 05/30/2025 3:30 PM EST Office Visit [facility] CHC MED & PEDS [address] [place] [address] Braden Hernandez MD [address] [place] [address] documented as of this encounter Visit Diagnoses Not on filedocumented in this encounter Additional Health Concerns Assessment Noted Time PHQ-9 Depression Total Score: 17 025 1:46 PM EDT documented as of this encounter Care Teams Licensed Loan Officer Relationship Specialty Start Date End Date Fany Brown MD [address] [place] [address] PCP - General Internal Medicine 05/18/15 Kirby Lyle FNP [address] [place] [address] Nurse Practitioner Family Medicine 03/25/23 documented as of this encounter
--- OUTSIDE RECORDS SUMMARY | 2025-03-22 17:23 | XMS_ITS | Encounter Summary ---
Author Organization [employer] Address [address] [place] [address] 7 [place] [address] Care Team Providers Care Academic Success Coordinator Name Role Phone Fany Brown MD Primary Care Provider +1- [phone] Kirby Lyle Unavailable Unavailable Encounter Details Date Type Department Care Team ([facility] Contact Info) Description 05/22/2022 Orders Only [facility] MEDICINE [address] [place] [phone] Fany Brown MD [address] [place], [place] [phone] Chronic bilateral low back pain with bilateral [...] Upcoming Encounters Date Type Department Care Team ([facility] Contact Info) Description 05/30/2025 3:30 PM EST Office Visit [facility] CHC MED & PEDS [address] [place], [place] [phone] Braden Hernandez MD [address] [place], [place] [phone] documented as of this encounter Visit Diagnoses Diagnosis Chronic bilateral low back pain with bilateral sciatica- Primary Muscle spasm Spasm of muscle documented in this encounter Care Teams Academic Success Coordinator Relationship Specialty Start Date End Date Fany Brown MD [address] [place] [address] PCP - General Internal Medicine 05/18/15 Kirby Lyle FNP [address] [place] [address] Nurse Practitioner Family Medicine 03/25/23 documented as of this encounter
--- OUTSIDE RECORDS SUMMARY | 2025-03-22 17:23 | XMS_ITS | Clinical Summary ---
Author Organization [facility] Address [address] [place] [address] Phone Care Team Providers Care Central Office Frame Wirer Name Role Phone Fany Brown MD Primary Care Provider +1 -[phone] Encounters Date Type Department Care Team Description 01/17/2025 5:45 PM EDT - 01/17/2025 11:59 PM EDT Hospital Encounter [facility] Xray [address] [place] [address] Pain in joints of left hand Discharge Disposition: Home or Self Care from Last 3 Months Surgical History Surgery Date Site/Laterality Comments ESOPHAGOGASTRODUODENOSCOPY 04/03/07 PROCEDURE: SC EGD TRANSORAL BIOPSY SINGLE/MULTIPLE; COMMENT: Gastritis-bxmild reactive gastropathy: SB-bx:increased intraepithelial lymphocytes-Celiac disease COLONOSCOPY W/ BIOPSIES 04/03/07 PROCEDURE: SC COLONOSCOPY STOMA W/BIOPSY SINGLE/MULTIPLE; COMMENT: Up to [...] Father Alive anurag cotton 05/02/62? 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 -------- FINAL REPORT -------- Dictated By: Jose Frey Dictated Date: 01/18/2025 07:44 ET Assigned Physician: Jose Frey Reviewed and Electronically Signed By: Jose Frey Signed Date: 01/18/2025 07:47 ET Workstation ID: [id number] Transcribed By: Self Edit Transcribed Date: 01/18/2025 [...] Signed Date: 01/18/2025 07:47 ET Workstation ID: [id number] Transcribed By: Self Edit Transcribed Date: 01/18/2025 07:44 ET us Tran Sanchez MD IMG XR PROCEDURES Final Resul t from Last 3 Months Insurance MEDICAID - [place] Care Teams Central Office Frame Wirer Relationship Specialty Start Date End Date Fany Brown MD [address] [place], [place] PCP - General Internal Medicine 01/06/19
--- OUTSIDE RECORDS SUMMARY | 2025-03-22 17:23 | XMS_ITS | Encounter Summary ---
Author Organization [employer] Address [address] [facility] 7 [place] [address] Care Team Providers Care Financial Assistant Name Role Phone Fany Brown MD Primary Care Provider +1- [phone] Kirby Lyle Unavailable Unavailable Encounter Details Date Type Department Care Team ([facility] st Contact Info) Description 01/18/2025 Results Follow-Up [facility] CHC MED & PEDS [address] [place], [place] [phone] Tran Sanchez MD [address] [place] [address] XR Hand 3+ Views Left Social History Tobacco Use Types Packs/Day Years Used Date Smoking Tobacco: Every Day Cigarettes 0.5 23 Passive Smoke Exposure: Current Smokeless Tobacco: Never Comments:[facility]. Depression Answer Date Recorded Patient [...] 1:46 PM EDT Koko Dimas [place] * Moving or speaking [...] Visit [facility] MED & PEDS [address] [place] [address] Braden Hernandez MD [address] [place] [address] documented as of this encounter Visit Diagnoses Not on filedocumented in this encounter Additional Health Concerns Assessment Noted Time PHQ-9 Depression Total Score: 11 024 3:28 PM EDT documented as of this encounter Care Teams Financial Assistant Relationship Specialty Start Date End Date Fany Brown MD [address] [place] [address] PCP - General Internal Medicine 05/18/15 Kirby Lyle FNP [address] [place] [address] Nurse Practitioner Family Medicine 03/25/23 documented as of this encounter
--- OUTSIDE RECORDS SUMMARY | 2025-03-22 17:23 | XMS_ITS | Encounter Summary ---
Author Organization [employer] Address [address] [facility] 7 [place] [address] Care Team Providers Care Salesperson Used Cars Name Role Phone Fany Brown MD Primary Care Provider +1 [phone] Kirby Lyle Unavailable Unavailable Reason for Visit * Reason Comments Med Refill Encounter Details Date Type Department Care Team ([facility] st Contact Info) Description 05/09/2023 Refill [facility] CHC MED & PEDS [address] [place] [address] Fany Brown MD [address] [place] [address] Muscle spasm; Chronic midline thoracic back pain; [...] Description 05/30/2025 3:30 PM EST Office Visit [facility] CHC MED & PEDS [address] [place] [address] Braden Hernandez MD [address] [place] [address] documented as of this encounter Visit Diagnoses Diagnosis Muscle spasm Spasm of muscle Chronic midline thoracic back pain Herpes Herpes simplex without mention of complication documented in this encounter Additional Health Concerns Assessment Noted Time PHQ-9 Depression Total Score: 16 023 10:43 AM EST documented as of this encounter Care Teams Salesperson Used Cars Relationship Specialty Start Date End Date Fany Brown MD [address] [place] [address] PCP - General Internal Medicine 05/18/15 Kirby Lyle FNP [address] [place] [address] Nurse Practitioner Family Medicine 03/25/23 documented as of this encounter
--- OUTSIDE RECORDS SUMMARY | 2025-03-22 17:23 | XMS_ITS | Encounter Summary ---
Author Organization [employer] Address [address] [facility] 7 [place] [address] Care Team Providers Care Brokerage Clerk Name Role Phone Fany Brown MD Primary Care Provider +1- [phone] Kirby Lyle Unavailable Unavailable Reason for Visit * Reason Comments Med Refill Encounter Details Date Type Department Care Team ([facility] st Contact Info) Description 04/30/2022 Refill [facility] CHC MED & PEDS [address] [place] [address] Fany Brown MD [address] [place] [address] Muscle spasm Social History Tobacco Use Types [...] Description 05/30/2025 3:30 PM EST Office Visit [facility] MED & PEDS [address] [place] [address] Braden Hernandez MD [address] [place], [place] [phone] documented as of this encounter Visit Diagnoses Diagnosis Muscle spasm Spasm of muscle documented in this encounter Care Teams Brokerage Clerk Relationship Specialty Start Date End Date Fany Brown MD [address] [place] [address] PCP - General Internal Medicine 05/18/15 Kirby Lyle FNP [address] [place] [address] Nurse Practitioner Family Medicine 03/25/23 documented as of this encounter
--- OUTSIDE RECORDS SUMMARY | 2025-03-22 17:24 | XMS_ITS | Encounter Summary ---
Author Organization [employer] Address [address] [place] [address] 7 [place] [address] Care Team Providers Care Sampling Theory Teacher Name Role Phone Fany Brown MD Primary Care Provider +1- [phone] Kirby Lyle Unavailable Unavailable Reason for Referral * Cardiac Stress Testing (Routine) - Closed Specialty Diagnoses / Procedures Referred By Contmaira t Referred To Contact Cardiology Diagnoses Palpitations Procedures Holter monitor - 48 hour Fany Brown MD [address] [place] [address] Phone: tel: fax: [address] [address] Phone: tel: fax: Referral ID Status Reason Start Date Expiration Date Visits Re quested Visits Authorized [id number] Closed 03/20/2023 03/19/2024 1 1 Encounter Details Date Type Department Care Team (Late st Contact Info) Description 03/20/2023 Orders Only [facility] CHC MED & PEDS [address] [place], [place] [phone] Fany Brown MD [address] [place], [place] [phone] Snoring (Primary Dx); Palpitations; Chronic midline thoracic back pain Social History Tobacco Use Types Packs/Day Years Used Date Smoking Tobacco: Every Day Cigarettes 0.5 23 Smokeless Tobacco: Never Comments:Referred to a [employer] [facility] cessation program. Depression Answer Date Recorded [...] Description 05/30/2025 3:30 PM EST Office Visit [facility] CHC MED & PEDS [address] [place], [place] [phone] Braden Hernandez MD [address] [place] [address] Scheduled Orders Name Type Priority Associated Diagnoses [...] documented as of this encounter Care Teams Sampling Theory Teacher Relationship Specialty Start Date End Date Fany Brown MD [address] [place] [address] PCP - General Internal Medicine 05/18/15 Kirby Lyle FNP [address] [place] [address] Nurse Practitioner Family Medicine 03/25/23 documented as of this encounter
--- OUTSIDE RECORDS SUMMARY | 2025-03-22 17:24 | XMS_ITS | Encounter Summary ---
Author Organization [employer] Address 75 [facility] 7 [place] [address] Care Team Providers Care Tilting Saw Operator Name Role Phone Fany Brown MD Primary Care Provider +1- [phone] Kirby Lyle Unavailable Unavailable Reason for Visit * Reason Onset Date Comments Appointment Request 03/21/2025 Encounter Details Date Type Department Care Team ([facility] st Contact Info) Description 03/21/2025 Telephone [facility] MEDICINE [address] [place] [address] Fany Brown MD [address] [place] [address] Appointment Request Social History Tobacco Use Types Packs/Day Years Used Date Smoking Tobacco: Every Day Cigarettes 0.5 23 Passive Smoke Exposure: Current Smokeless Tobacco: Never Comments:[facility]. Depression Answer Date [...] encounter Miscellaneous Notes * Telephone Encounter - Delon Acevedo - 03/21/2025 3:37 PM EST Tc from pt requesting appointment to remove iud. To starting reproducing documented in this encounter Plan of Treatment Upcoming Encounters Date Type Department Care Team (Late st Contact Info) Description 05/30/2025 3:30 PM EST Office Visit [facility] CHC MED & PEDS [address] [place], [place] [phone] Braden Hernandez MD [address] [place] [phone] documented as of this encounter Visit Diagnoses Not on filedocumented in this encounter Additional Health Concerns Assessment Noted Time PHQ-9 Depression Total Score: 17 025 1:46 PM EDT documented as of this encounter Care Teams Tilting Saw Operator Relationship Specialty Start Date End Date Fany Brown MD [address] [place] [address] PCP - General Internal Medicine 05/18/15 Kirby Lyle FNP [address] [place] [address] Nurse Practitioner Family Medicine 03/25/23 documented as of this encounter
--- OUTSIDE RECORDS SUMMARY | 2025-03-22 17:24 | XMS_ITS | Encounter Summary ---
Author Organization [employer] Address 75 [facility] 7 [place] [address] Care Team Providers Care Cut In Worker Name Role Phone Fany Brown MD Primary Care Provider +1 [phone] Kirby Lyle Unavailable Unavailable Reason for Visit * Reason Comments Med Refill Encounter Details Date Type Department Care Team ([facility] st Contact Info) Description 11/13/2024 Refill [facility] CHC MED & PEDS [address] [place] [address] Fany Brown MD [address] [place] [address] Chronic midline thoracic back pain Social History [...] Upcoming Encounters Date Type Department Care Team ([facility] st Contact Info) Description 05/30/2025 3:30 PM EST Office Visit [facility] MED & PEDS [address] [place] [address] Braden Hernandez MD [address] [place] [address] documented as of this encounter Visit Diagnoses Diagnosis Chronic midline thoracic back pain documented in this encounter Additional Health Concerns Assessment Noted Time PHQ-9 Depression Total Score: 11 024 3:28 PM EDT documented as of this encounter Care Teams Cut In Worker Relationship Specialty Start Date End Date Fany Brown MD [address] [place] [address] PCP - General Internal Medicine 05/18/15 Kirby Lyle FNP [address] [place] [address] Nurse Practitioner Family Medicine 03/25/23 documented as of this encounter
--- OUTSIDE RECORDS SUMMARY | 2025-03-22 17:24 | XMS_ITS | Encounter Summary ---
Author Organization [employer] Address 75 [facility] 7t [place] [address] Care Team Providers Care Coin Purse Assembler Name Role Phone Fany rBown MD Primary Care Provider [phone] Kirby Lyle Unavailable Unavailable Reason for Visit * Reason Onset Date Comments Med Refill 12/07/2024 Encounter Details Date Type Department Care Team (Late st Contact Info) Description 12/07/[address] [facility] CHC MED & PEDS [address] [place] [address] Braden Hernandez MD [address] [place] [address] Opioid type dependence, continuous (CMS/HCC) Social History Tobacco Use Types Packs/Day Years Used Date Smoking Tobacco: Every Day Cigarettes 0.5 23 Passive Smoke Exposure: Current Smokeless Tobacco: Never Comments:Referred to a [facility] cessation program. Depression Answer Date Recorded [...] Description 05/30/2025 3:30 PM EST Office Visit [facility] MED & PEDS [address] [place] [address] Braden Hernandez MD [address] [place] [address] documented as of this encounter Visit Diagnoses Diagnosis Opioid type dependence, continuous (CMS/HCC) (HCC) Opioid type dependence, continuous documented in this encounter Additional Health Concerns Assessment Noted Time PHQ-9 Depression Total Score: 11 024 3:28 PM EDT documented as of this encounter Care Teams Coin Purse Assembler Relationship Specialty Start Date End Date Fany Brown MD [address] [place] [address] PCP - General Internal Medicine 05/18/15 Kirby Lyle FNP [address] [place] [address] Nurse Practitioner Family Medicine 03/25/23 documented as of this encounter
--- OUTSIDE RECORDS SUMMARY | 2025-03-22 17:24 | XMS_ITS | Encounter Summary ---
Author Organization [employer] Address [address] [place] [address] 7 [place] [address] Care Team Providers Care Measurement Department Chief Clerk Name Role Phone Fany Brown MD Primary Care Provider [phone] Kirby Lyle Unavailable Unavailable Reason for Referral * Consultation (Urgent) - Closed Specialty Diagnoses / Procedures Referred By Contac t Referred To Contact Podiatry Diagnoses Closed nondisplaced fracture of fifth metatarsal bone of right foot, initial encounter Elle Calixto MD [address] [place] [address] Phone: tel: fax: Issac Correa DPM Phone: tel: fax: Referral ID Status Reason Start Date Expiration Date V isits Requested Visits Authorized [id number] Closed Specialty Services Required 08/21/2023 08/20/2024 6 6 Encounter Details Date Type Department Care Team (Late st Contact Info) Description 08/21/2023 Orders Only [facility] MEDICINE [address] [place] [address] [phone] Elle Calixto MD [address] [place] [address] [phone] Closed nondisplaced fracture of fifth metatarsal bone of right foot, initial encounter (Primary Dx) Social History Tobacco Use Types Packs/Day Years Used Date Smoking Tobacco: Every Day Cigarettes 0.5 23 Passive Smoke Exposure: Current Smokeless Tobacco: Never Comments:Referred to a [facility] cessation program. Depression Answer Date Recorded Patient [...] Description 05/30/2025 3:30 PM EST Office Visit [facility] MED & PEDS [address] [place] [address] Braden Hernandez MD [address] [place] [address] Scheduled Referrals Name Type Priority Associated Diagnoses [...] documented as of this encounter Care Teams Measurement Department Chief Clerk Relationship Specialty Start Date End Date Fany Brown MD [address] [facility] [address] PCP - General Internal Medicine 05/18/15 Kirby Lyle FNP [address] [place] [address] Nurse Practitioner Family Medicine 03/25/23 documented as of this encounter
--- OUTSIDE RECORDS SUMMARY | 2025-03-22 17:24 | XMS_ITS | Encounter Summary ---
Author Organization [employer] Address 75 [facility] 7 [place] [address] Care Team Providers Care Information Management Officer Name Role Phone Fany Brown MD Primary Care Provider [phone] Kirby Lyle Unavailable Unavailable Reason for Visit * Reason Comments Med Refill Encounter Details Date Type Department Care Team ([facility] st Contact Info) Description 03/18/2025 Refill [facility] CHC MED & PEDS [address] [place] [address] Fany Brown MD [address] [place] [address] Anxiety disorder, unspecified type Social History Tobacco [...] Telephone Encounter - Sana Ames RN - 03/21/2025 10:57 AM EST Would you like pt to be on APPLICATIONS INSTRUCTOR? Re: Clonazepam documented in this encounter Plan of Treatment Upcoming Encounters Date Type Department Care Team (Late st Contact Info) Description 05/30/2025 3:30 PM EST Office Visit [facility] CHC MED & PEDS [address] [place], [place] [phone] Braden Hernandez MD [address] [place] [address] documented as of this encounter Visit Diagnoses Diagnosis Anxiety disorder, unspecified type documented in this encounter Additional Health Concerns Assessment Noted Time PHQ-9 Depression Total Score: 17 025 1:46 PM EDT documented as of this encounter Care Teams Information Management Officer Relationship Specialty Start Date End Date Fany Brown MD [address] [place] [address] PCP - General Internal Medicine 05/18/15 Kirby Lyle FNP [address] [place] [address] Nurse Practitioner Family Medicine 03/25/23 documented as of this encounter
--- OUTSIDE RECORDS SUMMARY | 2025-03-22 17:24 | XMS_ITS | Encounter Summary ---
Author Organization [employer] Address 75 [facility] 7 [place] [address] Care Team Providers Care Manager Foreign Name Role Phone Fany Brown MD Primary Care Provider +1 [phone] Kirby Lyle Unavailable Unavailable Reason for Visit * Reason Onset Date Comments Med Refill 07/05/2024 Encounter Details Date Type Department Care Team ([facility] st Contact Info) Description 07/05/2024 Refill [facility] CHC MED & PEDS [address] [place] [address] Fany Brown MD [address] [place] [address] Social History Tobacco Use Types Packs/Day Years Used Date Smoking Tobacco: Every Day Cigarettes 0.5 23 Passive Smoke Exposure: Current Smokeless Tobacco: Never Comments:Referred to a [facility] cessation program. Depression Answer Date Recorded [...] Description 05/30/2025 3:30 PM EST Office Visit [facility] MED & PEDS [address] [place], [place] [phone] Braden Hernandez MD [address] [place] [address] documented as of this encounter Visit Diagnoses Not on filedocumented in this encounter Additional Health Concerns Assessment Noted Time PHQ-9 Depression Total Score: 11 024 3:28 PM EDT documented as of this encounter Care Teams Manager Foreign Relationship Specialty Start Date End Date Fany Brown MD [address] [place] [address] PCP - General Internal Medicine 05/18/15 Kirby Lyle FNP [address] [place] [address] Nurse Practitioner Family Medicine 03/25/23 documented as of this encounter
--- OUTSIDE RECORDS SUMMARY | 2025-03-22 17:24 | XMS_ITS | Encounter Summary ---
Author Organization [employer] Address 75 [facility] 7 [place] [address] Care Team Providers Care Fruit Washer Name Role Phone Fany Brown MD Primary Care Provider +1 [phone] Kirby Lyle Unavailable Unavailable Encounter Details Date Type Department Care Team (Late st Contact Info) Description 07/21/2023 Orders Only [facility] CHC MED & PEDS [address] [place], [place] [phone] Fany Brown MD 505 [place] [address] Muscle spasm Social History Tobacco Use Types Packs/Day Years Used Date Smoking Tobacco: Every Day Cigarettes 0.5 23 Smokeless Tobacco: Never Comments:Referred to a [employer] cessation program. Depression Answer Date Recorded [...] Description 05/30/2025 3:30 PM EST Office Visit [facility] CHC MED & PEDS [address] [place] [address] Braden Hernandez MD [address] [place] [address] documented as of this encounter Visit Diagnoses Diagnosis Muscle spasm Spasm of muscle documented in this encounter Additional Health Concerns Assessment Noted Time PHQ-9 Depression Total Score: 11 024 3:28 PM EDT documented as of this encounter Care Teams Fruit Washer Relationship Specialty Start Date End Date Fany Brown MD [address] [place] [address] PCP - General Internal Medicine 05/18/15 Kirby Lyle FNP [address] [place] [address] Nurse Practitioner Family Medicine 03/25/23 documented as of this encounter
--- OUTSIDE RECORDS SUMMARY | 2025-03-22 17:24 | XMS_ITS | Encounter Summary ---
Author Organization [employer] Address [address] [place] [address] [place] [address] Care Team Providers Care Almond Huller Name Role Phone Fany Brown MD Primary Care Provider +1 [phone] Kirby Lyle Unavailable Unavailable Reason for Visit * Reason Comments Med Refill Encounter Details Date Type Department Care Team ([facility] Contact Info) Description 09/29/2022 Refill [facility] MED & PEDS [address] [place] [address] Fany Brown MD 505 [place] [address] Social History Tobacco Use Types Packs/Day Years [...] Upcoming Encounters Date Type Department Care Team ([facility] Contact Info) Description 05/30/2025 3:30 PM EST Office Visit [facility] MED & PEDS [address] [place] [address] Braden Hernandez MD [address] [place] [address] documented as of this encounter Visit Diagnoses Not on filedocumented in this encounter Additional Health Concerns Assessment Noted Time PHQ-9 Depression Total Score: 15 023 2:14 PM EDT documented as of this encounter Care Teams Almond Huller Relationship Specialty Start Date End Date Fany Brown MD 505 [place] [address] PCP - General Internal Medicine 05/18/15 Kirby Lyle FNP [address] [place] [address] Nurse Practitioner Family Medicine 03/25/23 documented as of this encounter
--- OUTSIDE RECORDS SUMMARY | 2025-03-22 17:24 | XMS_ITS | Encounter Summary ---
Author Organization [employer] Address 75 [facility] 7 [place] [address] Care Team Providers Care Sales And Marketing Representative Name Role Phone Fany Brown MD Primary Care Provider [phone] Kirby Lyle Unavailable Unavailable Encounter Details Date Type Department Care Team (Late st Contact Info) Description 04/22/2024 Orders Only [facility] CH[facility] MED & PEDS 505 [place], [place] [phone] Fany Brown MD 505 [place] [address] Social History Tobacco Use Types Packs/Day Years Used Date Smoking Tobacco: Every Day Cigarettes 0.5 23 Passive Smoke Exposure: Current Smokeless Tobacco: Never Comments:Referred to a [facility] cessation program. Depression Answer [...] 05/30/2025 3:30 PM EST Office Visit [facility] MED & PEDS [address] [place] [address] Braden Hernandez MD [address] [place] [address] documented as of this encounter Visit Diagnoses Not on filedocumented in this encounter Additional Health Concerns Assessment Noted Time PHQ-9 Depression Total Score: 11 024 3:28 PM EDT documented as of this encounter Care Teams Sales And Marketing Representative Relationship Specialty Start Date End Date Fany Bronw MD 505 [place] [address] PCP - General Internal Medicine 05/18/15 Kirby Lyle FNP [address] [place] [address] Nurse Practitioner Family Medicine 03/25/23 documented as of this encounter
--- OUTSIDE RECORDS SUMMARY | 2025-03-22 17:24 | XMS_ITS | Encounter Summary ---
Author Organization [employer] Address 75 [facility] 7 [place] [address] Care Team Providers Care Street Light Servicer Name Role Phone Fany Brown MD Primary Care Provider [phone] Kirby Lyle Unavailable Unavailable Reason for Visit * Reason Onset Date Comments Nurse Triage 03/21/2025 Encounter Details Date Type Department Care Team ([facility] st Contact Info) Description 03/21/2025 Telephone [facility] MEDICINE [address] [place] [address] Fany Brown MD [address] [place] [address] Nurse Triage Social History Tobacco Use Types Packs/Day Years Used Date Smoking Tobacco: Every Day Cigarettes 0.5 23 Passive Smoke Exposure: Current Smokeless Tobacco: Never Comments:[facility] Depression Answer Date Recorded [...] encounter Miscellaneous Notes * Telephone Encounter - Arias Beckham RN - 03/21/2025 4:26 PM EST TC placed to patient. Patient reported she stubbed her toe yesterday morning and now c/o severe pain, discolored. Patient also called for an appt with Certified nurse mid- at [facility] to have her IUD removed. RN scheduled an appt. RN advised patient to [facility] her [facility]. Patient reported she will go to the [facility] after her scheduled appt tomorrow. (03/22/25). Johnny noguera verbalized understanding. Protocol Used: Toe Injury (Adult) Protocol-Based Disposition: See in Office or Video Visit Today Video visit not offered Positive Triage Questions: * Severe pain (e.g., excruciating) * Stubbed or jammed toe * Toe swelling, bruise or pain * All higher-acuity triage questions were negative. Care Advice Discussed: * Reassurance and Education - Sprained Toe (Jammed, Stubbed Toe) * Use a Cold Pack for Pain, Swelling, or Bruising * Use Heat on Area After 48 Hours * Aníbal-Tape Splinting * Protect the Toe and Wear Comfortable Shoes * Expected Course * Reasons To Call Back - Pain becomes severe - Pain does not improve after 3 days - Pain or swelling lasts more than 2 weeks - You become worse * Telephone Encounter - Delon Curtis - 03/21/2025 3:33 PM EST Symptom: Toe Injury Outcome: Schedule an urgent appointment (within 1 hour) or talk to a nurse or provider soon Reason: Severe pain now Please contact at [phone] or [phone] documented in this encounter Plan of Treatment Upcoming Encounters Date Type Department Care Team (Late st Contact Info) Description 05/30/2025 3:30 PM EST Office Visit [facility] MED & PEDS [address] [place], [place] [phone] Braden Hernandez MD [address] [place] [address] documented as of this encounter Visit Diagnoses Not on filedocumented in this encounter Additional Health Concerns Assessment Noted Time PHQ-9 Depression Total Score: 17 025 1:46 PM EDT documented as of this encounter Care Teams Street Light Servicer Relationship Specialty Start Date End Date Fany Brown MD [address] [place] [address] PCP - General Internal Medicine 05/18/15 Kirby Lyle FNP [address] [place] [address] Nurse Practitioner Family Medicine 03/25/23 documented as of this encounter
--- OUTSIDE RECORDS SUMMARY | 2025-03-22 17:24 | XMS_ITS | Encounter Summary ---
Author Organization [employer] Address 75 [facility] 7 [place] [address] Care Team Providers Care Special Warfare Boat Operator Name Role Phone Fany Brown MD Primary Care Provider [phone] Kirby Lyle Unavailable Unavailable Reason for Visit * Reason Onset Date Comments Med Refill 03/22/2024 Encounter Details Date Type Department Care Team ([facility] st Contact Info) Description 03/22/2024 Refill [facility] CHC MED & PEDS [address] [place], [place] [phone] Fany Brown MD 505 [place] [address] Nausea Social History Tobacco Use Types Packs/Day Years Used Date Smoking Tobacco: Every Day Cigarettes 0.5 23 Passive Smoke Exposure: Current Smokeless Tobacco: Never Comments:Referred to a [facility] cessation program. Depression Answer Date [...] Description 05/30/2025 3:30 PM EST Office Visit [facility] MED & PEDS [address] [place], [place] [phone] Braden Hernandez MD [address] [place] [address] documented as of this encounter Visit Diagnoses Diagnosis Nausea Nausea alone documented in this encounter Additional Health Concerns Assessment Noted Time PHQ-9 Depression Total Score: 11 024 3:28 PM EDT documented as of this encounter Care Teams Special Warfare Boat Operator Relationship Specialty Start Date End Date Fany Brown MD [address] [place] [address] PCP - General Internal Medicine 05/18/15 Kirby Lyle FNP [address] [place] [address] Nurse Practitioner Family Medicine 03/25/23 documented as of this encounter
--- OUTSIDE RECORDS SUMMARY | 2025-03-22 17:24 | XMS_ITS | Encounter Summary ---
Author Organization [employer] Address 75 [facility] 7 [place] [address] Care Team Providers Care Coin Box Inspector Name Role Phone Fany Brown MD Primary Care Provider [phone] Kirby Lyle Unavailable Unavailable Reason for Visit * Reason Onset Date Comments Med Refill 11/10/2023 Encounter Details Date Type Department Care Team ([place] [facility] st Contact Info) Description 11/10/2023 Refill [facility] CHC MED & PEDS [address] [place], [place] [address] Fany Brown MD 505 [place] [address] Nausea Social History Tobacco Use Types Packs/Day Years Used Date Smoking Tobacco: Every Day Cigarettes 0.5 23 Passive Smoke Exposure: Current Smokeless Tobacco: Never Comments:Referred to a [facility] cessation program. Depression Answer Date Recorded Patient Health Questionnaire-9 Score 11 06/30/2023 Patient Health Questionnaire-9 Score 11 06/30/2023 Last PHQ-9: Questionnaire Data Not on file 0 06/30/2023 Housing Stability Answer Date Recorded What is your housing situation today? I have elal malhotra 05/01/[address] you [...] Description 05/30/2025 3:30 PM EST Office Visit [facility] CHC MED & PEDS [address] [place], [place] [phone] Braden Hernandez MD [address] [place] [address] documented as of this encounter Visit Diagnoses Diagnosis Nausea Nausea alone documented in this encounter Additional Health Concerns Assessment Noted Time PHQ-9 Depression Total Score: 11 024 3:28 PM EDT documented as of this encounter Care Teams Coin Box Inspector Relationship Specialty Start Date End Date Fany Brown MD 505 [place] [address] PCP - General Internal Medicine 05/18/15 Kirby Lyle FNP [address] [place] [address] Nurse Practitioner Family Medicine 03/25/23 documented as of this encounter
--- OUTSIDE RECORDS SUMMARY | 2025-03-22 17:24 | XMS_ITS | Encounter Summary ---
Author Organization [employer] Address 75 [facility] 7t [place] [address] Care Team Providers Care Obstetrics Gyn Name Role Phone Fany Brown MD Primary Care Provider [phone] Kirby Lyle Unavailable Unavailable Encounter Details Date Type Department Care Team (Latest Contact Info) Description 03/22/2025 Travel Social History Tobacco Use Types Packs/Day Years Used Date Smoking Tobacco: Every Day Cigarettes 0.5 23 Passive Smoke Exposure: Current Smokeless Tobacco: Never Comments:Referred to a [address] cessation program. Depression Answer Date Recorded Patient [...] Q2 Not on file 02/09/2025 Comments No Sex and Gender Information Value Date Recorded Sex Assigned at Female 02/18/2022 10:24 AM EDT Legal Sex Female 10:24 AM EDT Gender Identity Female 02/18/2022 10:24 AM EDT Sexual Orientation Straight 01/30/2025 7: 57 PM EDT documented as of this encounter Plan of Treatment Upcoming Encounters Date Type Department Care Team (Late st Contact Info) Description 05/30/2025 3:30 PM EST Office Visit [facility] CHC MED & PEDS 505 [place], [place] [phone] Braden Hernandez MD 230 [place] [address] documented as of this encounter Visit Diagnoses Not on filedocumented in this encounter Additional Health Concerns Assessment Noted Time PHQ-9 Depression Total Score: 17 025 1:46 PM EDT documented as of this encounter Care Teams Obstetrics Gyn Relationship Specialty Start Date End Date Fany Brown MD 505 [place] [address] PCP - General Internal Medicine 05/18/15 Kirby Lyle FNP [address] [place] [address] Nurse Practitioner Family Medicine 03/25/23 documented as of this encounter
--- OUTSIDE RECORDS SUMMARY | 2025-03-22 17:24 | XMS_ITS | Encounter Summary ---
Author Organization [employer] Address 75 [facility] 7 [place] [address] Care Team Providers Care Tip Fixer Name Role Phone Fany Brown MD Primary Care Provider [phone] Kirby Lyle Unavailable Unavailable Reason for Visit * Reason Comments Med Refill Encounter Details Date Type Department Care Team ([facility] st Contact Info) Description 07/17/2023 Refill [facility] CHC MED & PEDS [address] [place] [address] Fany Brown MD [address] [place] [address] Muscle spasm Social History Tobacco Use Types [...] Description 05/30/2025 3:30 PM EST Office Visit [facility] MED & PEDS [address] [place], [place] [phone] Braden Hernandez MD [address] [place] [address] documented as of this encounter Visit Diagnoses Diagnosis Muscle spasm Spasm of muscle documented in this encounter Additional Health Concerns Assessment Noted Time PHQ-9 Depression Total Score: 11 024 3:28 PM EDT documented as of this encounter Care Teams Tip Fixer Relationship Specialty Start Date End Date Fany Brown MD [address] [place] [address] PCP - General Internal Medicine 05/18/15 Kirby Lyle FNP [address] [place] [address] Nurse Practitioner Family Medicine 03/25/23 documented as of this encounter
--- OUTSIDE RECORDS SUMMARY | 2025-03-22 17:24 | XMS_ITS | Encounter Summary ---
Author Organization [employer] Address 75 [facility] 7t [place] [address] Care Team Providers Care Cell Tester Name Role Phone Fany Brown MD Primary Care Provider [phone] Kirby Lyle Unavailable Unavailable Reason for Visit * Reason Comments Med Refill Encounter Details Date Type Department Care Team ([facility] st Contact Info) Description 12/23/2023 Refill [facility] CHC MED & PEDS [address] [place] [address] Braden Hernandez MD [address] [place] [address] Opioid type dependence, continuous (CMS/HCC) Social History Tobacco Use Types Packs/Day Years Used Date Smoking Tobacco: Every Day Cigarettes 0.5 23 Passive Smoke Exposure: Current Smokeless Tobacco: Never Comments:Referred to a [facility] cessation program. Depression Answer Date [...] Upcoming Encounters Date Type Department Care Team ([facility] st Contact Info) Description 05/30/2025 3:30 PM EST Office Visit [facility] MED & PEDS 505 [place] [address] Braden Hernandez MD [address] [place] [address] documented as of this encounter Visit Diagnoses Diagnosis Opioid type dependence, continuous (CMS/HCC) (HCC) Opioid type dependence, continuous documented in this encounter Additional Health Concerns Assessment Noted Time PHQ-9 Depression Total Score: 11 024 3:28 PM EDT documented as of this encounter Care Teams Cell Tester Relationship Specialty Start Date End Date Fany Brown MD [address] [place] [address] PCP - General Internal Medicine 05/18/15 Kirby Lyle FNP [address] [place] [address] Nurse Practitioner Family Medicine 03/25/23 documented as of this encounter
--- OUTSIDE RECORDS SUMMARY | 2025-03-22 17:24 | XMS_ITS | Encounter Summary ---
Author Organization [employer] Address [address] [place] [address] [place] [address] Care Team Providers Care Lead Painter Name Role Phone Fany Brown MD Primary Care Provider [phone] Kirby Lyle Unavailable Unavailable Reason for Referral * Consultation (Routine) - Closed Specialty Diagnoses / Procedures Referred By Christian pretty Referred To Contact Orthopaedic Surgery Diagnoses Medial epicondylitis of right elbow Fany Brown MD [address] [place] [address] Phone: tel: fax: [facility] [address] [place] [address] [place] [address] Phone: tel: fax: Referral ID Status Reason Start Date Expiration Date V isits Requested Visits Authorized [id number] Closed Specialty Services Required 06/02/2024 06/02/2025 1 1 Encounter Details Date Type Department Care Team (Late st Contact Info) Description 06/02/2024 Orders Only [facility] CHC MED & PEDS [address] [place] [address] Fany Brown MD [address] [place] [address] Medial epicondylitis of right elbow (Primary Dx); Attention deficit disorder (ADD) in adult Social History Tobacco Use Types Packs/Day Years Used Date Smoking Tobacco: Every Day Cigarettes 0.5 23 Passive Smoke Exposure: Current Smokeless Tobacco: Never Comments:Referred to a [employer] cessation program. Depression Answer Date Recorded [...] [facility] MED & PEDS [address] [place] [address] Braden Hernandez MD [address] [place] [address] Scheduled Referrals Name Type Priority Associated Diagnoses [...] documented as of this encounter Care Teams Lead Painter Relationship Specialty Start Date End Date Fany Brown MD [address] [place] [address] PCP - General Internal Medicine 05/18/15 Kirby Lyle FNP [address] [place] [address] Nurse Practitioner Family Medicine 03/25/23 documented as of this encounter
--- OUTSIDE RECORDS SUMMARY | 2025-03-22 17:24 | XMS_ITS | Encounter Summary ---
Author Organization [employer] Address 75 [facility] 7 [place] [address] Care Team Providers Care Epic Specialist Name Role Phone Fany Brown MD Primary Care Provider +1 [phone] Kirby Lyle Unavailable Unavailable Reason for Visit * Reason Onset Date Comments Med Refill 11/20/2023 Encounter Details Date Type Department Care Team ([facility] st Contact Info) Description 11/20/2023 Refill [facility] CHC MED & PEDS [address] [place], [place] [phone] Fany Brown MD [address] [place] [address] Nausea Social History Tobacco Use Types Packs/Day Years Used Date Smoking Tobacco: Every Day Cigarettes 0.5 23 Passive Smoke Exposure: Current Smokeless Tobacco: Never Comments:Referred to a [facility] cessation program. Depression Answer Date [...] Description 05/30/2025 3:30 PM EST Office Visit [facility] MED & PEDS [address] [place], [place] [phone] Braden Hernandez MD [address] [place] [address] documented as of this encounter Visit Diagnoses Diagnosis Nausea Nausea alone documented in this encounter Additional Health Concerns Assessment Noted Time PHQ-9 Depression Total Score: 11 024 3:28 PM EDT documented as of this encounter Care Teams Epic Specialist Relationship Specialty Start Date End Date Fany Brown MD 505 [place] [address] PCP - General Internal Medicine 05/18/15 Kirby Lyle FNP [address] [place] [address] Nurse Practitioner Family Medicine 03/25/23 documented as of this encounter
--- OUTSIDE RECORDS SUMMARY | 2025-03-22 17:24 | XMS_ITS | Encounter Summary ---
Author Organization [employer] Address 75 [facility] 7 [place] [address] Care Team Providers Care Building Maintenance Custodian Name Role Phone Fany Brown MD Primary Care Provider [phone] Kirby Lyle Unavailable Unavailable Reason for Visit * Reason Comments Med Refill Encounter Details Date Type Department Care Team ([facility] st Contact Info) Description 05/27/2024 Refill [facility] MEDICINE [address] [place] [address] Genaro James MD [address] [place] [address] Social History Tobacco Use Types Packs/Day Years [...] Visit [facility] MED & PEDS [address] [place], [place] [phone] Braden Hernandez MD [address] [place] [address] documented as of this encounter Visit Diagnoses Not on filedocumented in this encounter Additional Health Concerns Assessment Noted Time PHQ-9 Depression Total Score: 11 024 3:28 PM EDT documented as of this encounter Care Teams Building Maintenance Custodian Relationship Specialty Start Date End Date Fany Brown MD [address] [place] [address] PCP - General Internal Medicine 05/18/15 Kirby Lyle FNP [address] [place] [address] Nurse Practitioner Family Medicine 03/25/23 documented as of this encounter
--- OUTSIDE RECORDS SUMMARY | 2025-03-22 17:24 | XMS_ITS | Encounter Summary ---
Author Organization [employer] Address [address] [place] [address] [address] [address] Care Team Providers Care Bullet Lubricating Machine Operator Name Role Phone Fany Brown MD Primary Care Provider [phone] Kirby Lyle Unavailable Unavailable Reason for Visit * Reason Comments Med Refill Encounter Details Date Type Department Care Team ([facility] Contact Info) Description 10/03/2022 Refill [facility] [address] [place] [address] Fany Brown MD [address] [place] [address] Social History Tobacco Use Types Packs/Day Years [...] Upcoming Encounters Date Type Department Care Team ([facility] Contact Info) Description 05/30/2025 3:30 PM EST Office Visit [facility] [address] [place] [address] Braden Hernandez MD [address] [place] [address] documented as of this encounter Visit Diagnoses Not on filedocumented in this encounter Additional Health Concerns Assessment Noted Time PHQ-9 Depression Total Score: 15 023 2:14 PM EDT documented as of this encounter Care Teams Bullet Lubricating Machine Operator Relationship Specialty Start Date End Date Fany Brown MD [address] [place] [address] PCP - General Internal Medicine 05/18/15 Kirby Lyle FNP [address] [place] [address] Nurse Practitioner Family Medicine 03/25/23 documented as of this encounter
--- OUTSIDE RECORDS SUMMARY | 2025-03-22 17:24 | XMS_ITS | Encounter Summary ---
Author Organization [employer] Address [address] [place] [address] 7 [place] [address] Care Team Providers Care Mini Shifter Name Role Phone Fany Brown MD Primary Care Provider [phone] Kirby Lyle Unavailable Unavailable Reason for Visit * Reason Comments Med Refill Encounter Details Date Type Department Care Team (Late Contact Info) Description 09/29/2022 Refill [facility] [address] [place], [place] [phone] Braden Hernandez MD [address] [place] [address] [phone] Opioid type dependence, continuous (CMS/HCC) Social History [...] 05/30/2025 3:30 PM EST Office Visit [facility] [address] [place], [place] [phone] Braden Hernandez MD [address] [place] [address] documented as of this encounter Visit Diagnoses Diagnosis Opioid type dependence, continuous (CMS/HCC) (HCC) Opioid type dependence, continuous documented in this encounter Additional Health Concerns Assessment Noted Time PHQ-9 Depression Total Score: 15 023 2:14 PM EDT documented as of this encounter Care Teams Mini Shifter Relationship Specialty Start Date End Date Fany Brown MD [address] [place] [address] PCP - General Internal Medicine 05/18/15 Kirby Lyle FNP [address] [place] [address] Nurse Practitioner Family Medicine 03/25/23 documented as of this encounter
--- OUTSIDE RECORDS SUMMARY | 2025-03-22 17:24 | XMS_ITS | Encounter Summary ---
Author Organization [employer] Address [address] [facility] 7 [place] [address] Care Team Providers Care Staff Trainer Name Role Phone Fany Brown MD Primary Care Provider [phone] Kirby Lyle Unavailable Unavailable Encounter Details Date Type Department Care Team (Late st Contact Info) Description 08/29/2023 Orders Only [facility] [address] [place], [place] [phone] Fany Brown MD [address] [place] [address] Chronic midline thoracic back pain (Primary Dx) [...] 05/30/2025 3:30 PM EST Office Visit [facility] [address] [place] [address] Braden Hernandez MD [address] [place] [phone] documented as of this encounter Visit Diagnoses Diagnosis Chronic midline thoracic back pain- Primary documented in this encounter Additional Health Concerns Assessment Noted Time PHQ-9 Depression Total Score: 11 024 3:28 PM EDT documented as of this encounter Care Teams Staff Trainer Relationship Specialty Start Date End Date Fany Brown MD [address] [place] [address] PCP - General Internal Medicine 05/18/15 Kirby Lyle FNP [address] [place] [address] Nurse Practitioner Family Medicine 03/25/23 documented as of this encounter
--- OUTSIDE RECORDS SUMMARY | 2025-03-22 17:24 | XMS_ITS | Encounter Summary ---
Author Organization [employer] Address [address] [facility] 7t [place] [address] Care Team Providers Care Appliance Repairer Name Role Phone Fany Brown MD Primary Care Provider [phone] Kirby Lyle Unavailable Unavailable Reason for Visit * Reason Onset Date Comments Med Refill Appointment 06/07/2023 [facility] Encounter Details Date Type Department Care Team (Late st Contact Info) Description 06/07/[address] [facility] [address] [place] [address] Kirby Lyle FNP Social History Tobacco Use [...] Description 05/30/2025 3:30 PM EST Office Visit [facility] [address] [place] [address] Braden Hernandez MD [address] [place] [address] documented as of this encounter Visit Diagnoses Not on filedocumented in this encounter Additional Health Concerns Assessment Noted Time PHQ-9 Depression Total Score: 16 023 10:43 AM EST documented as of this encounter Care Teams Appliance Repairer Relationship Specialty Start Date End Date Fany Brown MD [address] [place] [address] PCP - General Internal Medicine 05/18/15 Kirby Lyle FNP [address] [place] [address] Nurse Practitioner Family Medicine 03/25/23 documented as of this encounter
--- OUTSIDE RECORDS SUMMARY | 2025-03-22 17:24 | XMS_ITS | Encounter Summary ---
Author Organization [employer] Address [address] [facility] 7 [place] [address] Care Team Providers Care Silk Brusher Name Role Phone Fany Brown MD Primary Care Provider [phone] Kirby Lyle Unavailable Unavailable Reason for Visit * Reason Onset Date Comments Med Refill 12/23/2023 Encounter Details Date Type Department Care Team (Late st Contact Info) Description 12/23/2023 Refill [facility] [address] [place] [address] Braden Hernandez MD [address] [place] [address] Opioid type dependence, continuous (CMS/HCC) Social History Tobacco Use Types Packs/Day Years Used Date Smoking Tobacco: Every Day Cigarettes 0.5 23 Passive Smoke Exposure: Current Smokeless Tobacco: Never Comments:Referred to a [facility] cessation program. Depression Answer Date [...] 05/30/2025 3:30 PM EST Office Visit [facility] [address] [place] [address] Braden Hernandez MD [address] [place] [address] documented as of this encounter Visit Diagnoses Diagnosis Opioid type dependence, continuous (CMS/HCC) (HCC) Opioid type dependence, continuous documented in this encounter Additional Health Concerns Assessment Noted Time PHQ-9 Depression Total Score: 11 024 3:28 PM EDT documented as of this encounter Care Teams Silk Brusher Relationship Specialty Start Date End Date Fany Brown MD [address] [place] [address] PCP - General Internal Medicine 05/18/15 Kirby Lyle FNP [address] [place] [address] Nurse Practitioner Family Medicine 03/25/23 documented as of this encounter
--- OUTSIDE RECORDS SUMMARY | 2025-03-22 17:24 | XMS_ITS | Encounter Summary ---
Author Organization [employer] Address [address] [facility] 7 [place] [address] Care Team Providers Care Licensed Master Social Worker Name Role Phone Fany Brown MD Primary Care Provider [phone] Kirby Lyle Unavailable Unavailable Reason for Visit * Reason Comments Med Refill Encounter Details Date Type Department Care Team ([facility] st Contact Info) Description 05/27/2024 Refill [facility] [address] [place] [address] Fany Brown MD [address] [place] [phone] Social History Tobacco Use Types Packs/Day Years [...] Miscellaneous Notes * Telephone Encounter - Chanelle Fletcher - 06/01/2024 3:[address] EST Good [address] Brown. TC to [facility] to schedule patient and office states unable to schedule with DX provided, please advise. Thank you. documented in this encounter Plan of Treatment Upcoming Encounters Date Type Department Care Team (Late st Contact Info) Description 05/30/2025 3:30 PM EST Office Visit [facility] [address] [place] [address] Braden Hernandez MD [address] [place] [address] documented as of this encounter Visit Diagnoses Not on filedocumented in this encounter Additional Health Concerns Assessment Noted Time PHQ-9 Depression Total Score: 11 024 3:28 PM EDT documented as of this encounter Care Teams Licensed Master Social Worker Relationship Specialty Start Date End Date Fany Brown MD [address] [place] [address] PCP - General Internal Medicine 05/18/15 Kirby Lyle FNP [address] [place] [address] Nurse Practitioner Family Medicine 03/25/23 documented as of this encounter
[2025-03-24 18:04] LABS: C. trachomatis RNA TMA NOT DETECTED (NOT DETECTED); N. gonorrhoeae RNA TMA NOT DETECTED (NOT DETECTED); Trichomonas (NAAT) NOT DETECTED (NOT DETECTED)
== END 2025-03-22 16:44 | disposition home or self-care (01) ==
LOC: HO.HHCLNP 16:43
PROVIDERS: Visit Provider Advanced Practice Midwife
DX: Z12.4 Encounter for screening for malignant neoplasm of cervix (principal); Z20.2 Contact with and (suspected) exposure to infections with a predominantly sexual mode of transmission; Z11.51 Encounter for screening for human papillomavirus (HPV)
CPT/HCPCS: 87491; 87591; 87626; 87661; 88175